=== PATIENT | female | born 1970 | race Caucasian/White ===

== ENCOUNTER 2016-12-12 20:25 | Emergency (ER) | payer OTHER ==
[~2016-12-12] VITALS: Ht 167.6 cm; Wt 136.0 kg
[2016-12-12 20:27] VITALS: TEMP 36.9; Ht 167.6 cm; Wt 136.0 kg
[2016-12-12] MEDS ORDERED: SODIUM CHLORIDE 0.9% 1000ML 1,000 ML IV STA (20:38)
[2016-12-12] MEDS ORDERED: FENTANYL CITRATE INJ 50 MCG/1 ML 2 ML VIAL IV STA (20:38)
--- NOTE | 2016-12-12 20:46 | EMERGENCY ROOM VISIT NOTE ---
History Report prepared by Sami: Jami Almodovar Under the Supervision of: Dr. Nithin Gomez M.D. First contact with patient: 20:31 Chief Complaint: ABDOMINAL PAIN Stated Complaint: LLQ ABD PAIN History of Present Illness The patient is a 46 year old female who presents to the Emergency Room with complaints of constant left lower quadrant abdominal pain that started 2 days ago. She rates her discomfort as a 3/10. She was recently placed on Meloxicam for chronic low back pain and states she has not taken any medication for her abdominal pain yet due to not wanting any interactions with the Meloxicam. She denies any recent hematuria or history of kidney stones. She admits she has been constipated for the past several days. She has been nauseous but has not vomited. She denies any melena or hematochezia. The patient reports she came back from the [facility] today and was going to go to an urgent care center, but they were closed due to the holiday, so she came to the ED. She denies any history of ovarian cysts. She gets her menstrual period every 3 months and her last cycle was in October 2016. She still has both her gallbladder and appendix. Source of History: patient Onset: 2 days PUBLICIST Position: abdomen (LLQ) Symptom Intensity: 3/10 Timing: constant Associated Symptoms: + nausea, No vomiting, No melena, No hematochezia, No urinary symptoms Review of Systems See HPI for pertinent positives and negatives. A total of ten systems were reviewed and were otherwise negative. Past Medical & Surgical Medical Problems: (1) Asthma (2) Low back pain Surgical Problems: (1) History of delivery Social History Smoking Status: Never Smoker Alcohol Use: occasionally Drug Use: none Marital Status: Housing Status: lives with family Occupation Status: employed Current/Historical Medications Scheduled Control Pills ( Control Pills), 1 TAB PO DAILY Ciprofloxacin (Ciprofloxacin HCl), 1 TAB PO BID Fluticasone Propionate (Flovent Hfa), 2 PUFFS INH BID Meloxicam (Mobic), 15 MG PO DAILY Metronidazole (Flagyl), 500 MG PO QID Scheduled PRN Albuterol Hfa (Ventolin Hfa), 2 PUFFS INH Q4H PRN for Wheezing Alprazolam (Xanax), 0.25 MG PO BID PRN for Anxiety Allergies Coded Allergies: No Known Allergies (Unverified , 12/12/16) Physical Exam Vital Signs Date Time Temp Pulse Resp B/P (MAP) Pulse Ox O2 Delivery O2 Flow Rate FiO2 12/13/16 01:15 93 18 118/72 96 12/13/16 00:45 93 18 118/72 96 Room Air 12/12/16 22:27 99 18 136/93 98 Room Air 12/12/16 20:27 36.9 112 20 146/87 96 Room Air Physical Exam GENERAL: Awake, alert, well-appearing, in no distress HENT: Normocephalic, atraumatic. Oropharynx unremarkable. Dry mucous membranes. EYES: Normal conjunctiva. Sclera non-icteric. NECK: Supple. No nuchal rigidity. FROM. No JVD. RESPIRATORY: Clear to auscultation. CARDIAC: Regular rate, normal rhythm. Extremities warm and well perfused. Pulses equal. ABDOMEN: Obese, soft, non-distended. LLQ tenderness to palpation. No peritoneal signs. No rebound or guarding. No masses. RECTAL: Deferred. MUSCULOSKELETAL: Chest examination reveals no tenderness. The back is symmetrical on inspection without obvious abnormality. There is no CVA tenderness to palpation. No joint edema. LOWER EXTREMITIES: Calves are equal size bilaterally and non-tender. No edema. No discoloration. NEURO: Normal sensorium. No sensory or motor deficits noted. SKIN: No rash or jaundice noted. Medical Decision & Procedures ER Provider Diagnostic Interpretation: Radiology results as stated below per my review and radiologist interpretation: ABD/PELVIS IV CONTRAST ONLY HISTORY: 46 years-old Female LLQ pain acute left lower quadrant abdominal pain. Initial exam. COMPARISON: None available. TECHNIQUE: Multiple axial CT images of the abdomen and pelvis were obtained following the intravenous administration of 118 mL Optiray 320. A dose lowering technique was used consistent with the principals of ALARA. FINDINGS: The lung bases are generally clear with subsegmental atelectasis or scarring of the inferior segment lingula. No pneumoperitoneum is identified. Inferior cardiac chambers are unremarkable. The liver, spleen, pancreas, gallbladder and adrenal glands are within normal limits. Kidneys, ureters, urinary bladder and uterus are unremarkable. The abdominal aorta is normal in both course and caliber. No bulky retroperitoneal adenopathy. There is a small duodenal diverticulum. No small bowel obstruction. Moderate wall thickening with mesenteric edema surrounds diverticula within the mid descending colon, notably seen on image 281 of the axial series compatible with acute diverticulitis. No associated perforation or abscess identified at this time. Appendix is normal. Soft tissues are unremarkable. Bones are intact. Moderate intervertebral disc space narrowing noted at L5-S1. IMPRESSION: 1. Findings compatible with acute uncomplicated diverticulitis of the descending colon. No pneumoperitoneum or abscess formation. 2. Normal appendix. The above report was generated using voice recognition software. It may contain grammatical, syntax or spelling errors. Electronically signed by: Neil Walden M.D. 12/12/2016 10:44 PM Laboratory Results 12/12/16 20:55 Red Blood Count 4.28, Mean Corpuscular Volume 94.2, Mean Corpuscular Hemoglobin 31.3, Mean Corpuscular Hemoglobin Concent 33.3, Mean Platelet Volume 10.4, Neutrophils (%) (Auto) 65.9, Lymphocytes (%) (Auto) 22.4, Monocytes (%) (Auto) 9.5, Eosinophils (%) (Auto) 1.6, Basophils (%) (Auto) 0.2, Neutrophils # (Auto) 10.06, Lymphocytes # (Auto) 3.43, Monocytes # (Auto) 1.45, Eosinophils # (Auto) 0.25, Basophils # (Auto) 0.03 12/12/16 20:55 Test 12/12/16 20:55 12/12/16 21:04 12/12/16 21:50 White Blood Count 15.28 K/uL (4.8-10.8) Red Blood Count 4.28 M/uL (4.2-5.4) Hemoglobin 13.4 g/dL (12.0-16.0) Hematocrit 40.3 % (37-47) Mean Corpuscular Volume 94.2 fL (80-100) Mean Corpuscular Hemoglobin 31.3 pg (25-34) Mean Corpuscular Hemoglobin Concent 33.3 g/dl (32-36) Platelet Count 226 K/uL (130-400) Mean Platelet Volume 10.4 fL (7.4-10.4) Neutrophils (%) (Auto) 65.9 % Lymphocytes (%) (Auto) 22.4 % Monocytes (%) (Auto) 9.5 % Eosinophils (%) (Auto) 1.6 % Basophils (%) (Auto) 0.2 % Neutrophils # (Auto) 10.06 K/uL (1.4-6.5) Lymphocytes # (Auto) 3.43 K/uL (1.2-3.4) Monocytes # (Auto) 1.45 K/uL (0.11-0.59) Eosinophils # (Auto) 0.25 K/uL (0-0.5) Basophils # (Auto) 0.03 K/uL (0-0.2) RDW Standard Deviation 43.9 fL (36.4-46.3) RDW Coefficient of Variation 12.8 % (11.5-14.5) Immature Granulocyte % (Auto) 0.4 % Immature Granulocyte # (Auto) 0.06 K/uL (0.00-0.02) Anion Gap 6.0 mmol/L (3-11) Est Creatinine Clear Calc Drug Dose 144.1 ml/min Estimated GFR () 121.3 Estimated GFR (Non- 104.6 BUN/Creatinine Ratio 15.4 (10-20) Calcium Level 8.5 mg/dl (8.5-10.1) Total Bilirubin 0.3 mg/dl (0.2-1) Direct Bilirubin < 0.1 mg/dl (0-0.2) Aspartate Amino Transf (AST/SGOT) 15 U/L (15-37) Alanine Aminotransferase (ALT/SGPT) 16 U/L (12-78) Alkaline Phosphatase 48 U/L (45-117) Total Protein 7.3 gm/dl (6.4-8.2) Albumin 3.0 gm/dl (3.4-5.0) Lipase 97 U/L (73-393) Lactic Acid Level 0.8 mmol/L (0.4-2.0) Urine Color YELLOW Urine Appearance CLEAR (CLEAR) Urine pH 6.5 (4.5-7.5) Urine Specific [place] 1.014 (1.000-1.030) Urine Protein NEG (NEG) Urine Glucose (UA) NEG (NEG) Urine Ketones NEG (NEG) Urine Occult Blood TRACE (NEG) Urine Nitrite NEG (NEG) Urine Bilirubin NEG (NEG) Urine Urobilinogen NEG (NEG) Urine Leukocyte Esterase NEG (NEG) Urine WBC (Auto) 1-5 /hpf (0-5) Urine RBC (Auto) 0-4 /hpf (0-4) Urine Hyaline Casts (Auto) 1-5 /lpf (0-5) Urine Epithelial Cells (Auto) >30 /lpf (0-5) Urine Bacteria (Auto) NEG (NEG) Urine Test NEG (NEG) Laboratory results reviewed by me Medications Administered Medications (Trade) Dose Ordered Sig/[place] Route Start Time Stop Time Status Last Admin Dose Admin Sodium Chloride 1,000 ml @ 999 mls/hr Q1H1M STAT IV 12/12/16 20:38 12/12/16 21:38 DC 12/12/16 21:07 999 MLS/HR Fentanyl Citrate (Fentanyl Inj) 50 mcg NOW STAT IV 12/12/16 20:38 12/12/16 20:44 DC 12/12/16 21:07 50 MCG Ciprofloxacin/ Dextrose (Cipro / D5W) 400 mg NOW STAT IV 12/12/16 22:54 12/12/16 22:57 DC 12/12/16 23:13 400 MG Metronidazole (Flagyl / Nss) 500 mg NOW STAT IV 12/12/16 22:54 12/12/16 22:57 DC 12/12/16 23:13 500 MG ED Course 2036: The patient was evaluated in room B10. A complete history and physical exam was performed. 2037: Fentanyl 50 mcg IV, NSS 1000 ml @ 999 mls/hr IV. 2253: Flagyl 500 mg IV, Cipro 400 mg IV. 2304: I reevaluated the patient. She is feeling better and resting comfortably. I discussed her results and discharge instructions and she verbalized complete understanding and agreement. Medical Decision I reviewed the patient's past medical history, medications, and the nursing notes as described above. The differential diagnoses considered include diverticulitis, bowel obstruction , gastroenteritis, ovarian torsion, ectopic , hemorrhagic cyst, renal stone, pyelonephritis and UTI. Patient is a 46-year-old woman who presents to emergency department with the complaint of left lower quadrant abdominal pain for the past couple of days in the setting of chronic constipation per history of present illness. Arrival the patient is mildly uncomfortable but in no acute distress. She is afebrile with stable vital signs. On exam she has moderate tenderness in the left lower quadrant without any peritoneal signs. WBC elevated at 15. CT scan done which shows uncomplicated diverticulitis. Patient was given a dose of IV antibiotics and otherwise will be discharged on PO regimen with plan for PCP follow-up. Findings and plan for follow-up reviewed with patient. Patient agreeable and d/c 'd per discharge instructions. Medication Reconcilliation Current Medication List: was personally reviewed by me Blood Pressure Screening Patient's blood pressure: Normal blood pressure Blood pressure disposition: Did not require urgent referral Impression Primary Impression: Diverticulitis Scribe Attestation The scribe's documentation has been prepared under my direction and personally reviewed by me in its entirety. I confirm that the note above accurately reflects all work, treatment, procedures, and medical decision making performed by me. Departure Information Dispostion Home / Self-Care Prescriptions Metronidazole (Flagyl) 500 Mg Tab 500 MG PO QID for 7 Days, #28 TAB Prov: Nithin Gomez M.D. 12/12/16 Ciprofloxacin (Ciprofloxacin HCl) 750 Mg Tab 1 TAB PO BID for 7 Days, #14 TABS Prov: Nithin Gomez M.D. 12/12/16 Referrals No Doctor, Assigned (PCP) Patient Instructions Diverticulitis Dc, ED Diverticulitis, My [facility] Additional Instructions Please follow up with your primary care physician in the next 1-3 days for re- evaluation. Your CAT scan showed you have diverticulitis. You were given antibiotics. Otherwise, your exam, lab results, and CT scan did not show signs of an emergent condition at this time. Take your antibiotics as prescribed. Make sure to stay hydrated. Return to the emergency department for worsening symptoms as described in the accompanying instructions.
[2016-12-12 21:03] LABS: BASO % 0.2 %; BASO ABS # 0.03 K/uL (0-0.2); COMPLETE YES; EOS % 1.6 %; HEMATOCRIT 40.3 % (37-47); IG% 0.4 %; LYMPH % 22.4 %; LYMPH ABS # 3.43 K/uL (1.2-3.4); MEAN CELL VOLUME 94.2 fL (80-100); MEAN CORPUSCULAR HEMOGLOBIN 31.3 pg (25-34); MEAN CORPUSCULAR HGB CONC 33.3 g/dl (32-36); MEAN PLATELET VOLUME 10.4 fL (7.4-10.4); MONO % 9.5 %; NEUT % 65.9 %; PLATELET COUNT 226 K/uL (130-400); RED BLOOD COUNT 4.28 M/uL (4.2-5.4); WHITE BLOOD COUNT 15.28 K/uL (4.8-10.8)
[2016-12-12] MEDS ORDERED: OPTIRAY 320 IV PRN (21:15)
[2016-12-12 21:23] LABS: ALT/SGPT 16 U/L (12-78); BLOOD UREA NITROGEN 11 mg/dl (7-18); BUN/CREATININE RATIO 15.4 (10-20); CALCIUM 8.5 mg/dl (8.5-10.1); CARBON DIOXIDE 22 mmol/L (21-32); CHLORIDE 109 mmol/L (98-107); GLUCOSE 94 mg/dl (70-99); POTASSIUM 4.2 mmol/L (3.5-5.1); SODIUM 137 mmol/L (136-145)
[2016-12-12 21:26] LABS: ALKALINE PHOSPHATASE 48 U/L (45-117); AST/SGOT 15 U/L (15-37)
[2016-12-12] MEDS ORDERED: FLVHFA110 INH (21:29)
[2016-12-12] MEDS ORDERED: ALPR0.25 PO (21:29)
[2016-12-12] MEDS ORDERED: BCPILLS PO (21:29)
[2016-12-12] MEDS ORDERED: MELO15TA4 PO (21:29)
[2016-12-12] MEDS ORDERED: VNTHFA/IN INH (21:29)
[2016-12-12 22:04] LABS: URINE APPEARANCE CLEAR (CLEAR); URINE BILIRUBIN NEG (NEG); URINE COLOR YELLOW; URINE EPITHELIAL CELL AUTO >30 /lpf (0-5); URINE NITRITE NEG (NEG); URINE PH 6.5 (4.5-7.5); URINE SPECIFIC GRAVITY 1.014 (1.000-1.030); UROBILINOGEN NEG (NEG); ZZUR CULT IF INDIC CLEAN CATCH NO
[2016-12-12 22:05] LABS: MANUAL MICROSCOPIC REQUIRED? NO; REVIEW REQ? NO
--- NOTE | 2016-12-12 22:45 | DIAGNOSTIC IMAGING REPORT ---
ABD/PELVIS IV CONTRAST ONLY HISTORY: 46 years-old Female LLQ pain acute left lower quadrant abdominal pain. Initial exam. COMPARISON: None available. TECHNIQUE: Multiple axial CT images of the abdomen and pelvis were obtained following the intravenous administration of 118 mL Optiray 320. A dose lowering technique was used consistent with the principals of CHAO. FINDINGS: The lung bases are generally clear with subsegmental atelectasis or scarring of the inferior segment lingula. No pneumoperitoneum is identified. Inferior cardiac chambers are unremarkable. The liver, spleen, pancreas, gallbladder and adrenal glands are within normal limits. Kidneys, ureters, urinary bladder and uterus are unremarkable. The abdominal aorta is normal in both course and caliber. No bulky retroperitoneal adenopathy. There is a small duodenal diverticulum. No small bowel obstruction. Moderate wall thickening with mesenteric edema surrounds diverticula within the mid descending colon, notably seen on image 281 of the axial series compatible with acute diverticulitis. No associated perforation or abscess identified at this time. Appendix is normal. Soft tissues are unremarkable. Bones are intact. Moderate intervertebral disc space narrowing noted at L5-S1. IMPRESSION: 1. Findings compatible with acute uncomplicated diverticulitis of the descending colon. No pneumoperitoneum or abscess formation. 2. Normal appendix. The above report was generated using voice recognition software. It may contain grammatical, syntax or spelling errors. Electronically signed by: Neil Walden M.D. 12/12/2016 10:44 PM Dictated Date/Time: 12/12/2016 10:39 PM
[2016-12-12] MEDS ORDERED: CIPROFLOXACIN 400MG / 200ML D5W IV STA (22:54)
[2016-12-12] MEDS ORDERED: METRONIDAZOLE 500MG / 100ML NSS IV STA (22:54)
[2016-12-12] MEDS ORDERED: ALBUT/IPRATROP 3MG/0.5MG NEB 3 ML VIAL INH STA (23:05)
[2016-12-12] MEDS ORDERED: CPR750 PO (23:22)
[2016-12-12] MEDS ORDERED: METR-163 PO (23:22)
[2016-12-13 01:15] VITALS: BP 118/72; PULSE 93; O2SAT 96
== END 2016-12-13 01:15 | disposition home or self-care (01) ==
LOC: C.EDB 20:27
DX: K57.92 Diverticulitis of intestine, part unspecified, without perforation or abscess without bleeding (principal); G89.29 Other chronic pain; M54.5 Low back pain; J45.909 Unspecified asthma, uncomplicated; Z79.899 Other long term (current) drug therapy

== ENCOUNTER 2022-04-12 11:12 | Inpatient (IN) ==
[2022-04-12] MEDS ORDERED: STAT IV Infusion **Titration per Protocol STA (11:34)
[2022-04-12] MEDS ORDERED: dilTIAZem HCl 5 MG/ML 5 ML VIAL IV STA (11:34)
--- NOTE | 2022-04-12 11:43 | Emergency Department Note ---
Impression & Plan New onset atrial fibrillation, Leukocytosis ED Provider Note NAME: KIRA CARMICHAEL AGE: 51 SEX: F : 1970 ARRIVES VIA: Walk-In INFORMANT: Patient ED PROVIDER(S): Roc Navarro DO CHIEF COMPLAINT: chest pain HPI: Patient is a 51-year-old female with a past medical history of asthma who presents to the ER for upper respiratory symptoms that started last Monday with cough, congestion, and runny nose. Patient started steroids this past Monday. Over the past 24 hours she has been feeling her heart race. She gets sweaty when this occurs. Denies any headache or change in vision. No belly pain, nausea, vomiting, or diarrhea. No dysuria, urgency, or frequency. No other exacerbating or remitting factors. No history of A. fib. PAST MEDICAL HISTORY:See Below PAST SURGICAL HISTORY:See Below FAMILY HISTORY:See Below SOCIAL HISTORY:See Below HOME MEDICATIONS:See Below ALLERGIES:See Below VITALS:See Below PHYSICAL EXAMINATION: GENERAL: Sitting up in bed, alert, well appearing, well nourished, no distress, non-toxic EYE EXAM: normal conjunctiva. OROPHARYNX: no exudate, no erythema, lips, buccal mucosa, and tongue normal and mucous membranes are moist NECK: supple, no nuchal rigidity, no adenopathy, non-tender LUNGS: Clear to auscultation. Normal chest wall mechanics HEART: Tachycardic and irregular regular, S1 normal and S2 normal ABDOMEN: abdomen soft, non-tender, normo-active bowel sounds, no masses, no rebound or guarding. UPPER EXTREMITIES: upper extremities are grossly normal. LOWER EXTREMITIES: No pitting edema. NEURO EXAM: Normal sensorium, cranial nerves II-XII grossly intact, normal speech, no gross weakness of arms, no gross weakness of legs. Triage Nursing notes reviewed. Limited review of prior medical records performed Vital Signs: reviewed and remarkable for htn and tachy Differential diagnosis: Cardiac ischemia, aortic dissection, pulmonary embolism, pneumothorax, pneumonia, pericarditis, myocarditis, esophageal rupture, GERD, cholecystitis, pancreatitis, musculoskeletal, as well as other pathologies. ER treatment provided: See below MEDICAL DECISION MAKING: Patient is a 51-year-old female who presents the ER for feeling her heart race. IV was established blood work is obtained. Labs show leukocytosis of 13,000. No significant anemia. BMP without metabolic acidosis. There is no hyperkalemia. There is no significant electrolyte abnormality to cause this. LFTs show no transaminitis. Troponin was negative and not consistent with ACS. Lipase was normal. COVID was negative. Chest x-ray per my read shows no focal infiltrate. EKG per my read was consistent with A. fib with RVR. She was given Cardizem bolus and placed on Cardizem drip. She is updated bedside. Discussed with the hospitalist admitted for further work-up of her A. fib RVR. I did discuss with both our care managers in regards to placement as well as Zina. from [facility] hospitalist service for admission for the A. fib with RVR. After review of the above data I feel that this patient is to be managed as an inpatient as described above. Consultation(s): Discussed with patient hospital service in regards to admission for A. fib RVR while on Cardizem drip Discussed with not any care managers in regards to placement and admission ER treatment provided: See below Diagnostics interpreted by me: -ECG: A. fib RVR rate of 173 Normal axis No PVCs QTC 447 -Cardiac Monitoring: An order was placed for continuous cardiac monitoring. The monitor shows a rate of 142 with AFIB RVR rhythm. -Laboratory studies:As stated above and show below. -Imaging studies: Portable AP upright 1 view of the chest shows no focal infiltrate per my read Procedures:none Critical Care: I have personally spent 32 minutes of critical care time in the direct management of this patient. This includes bedside care, interpretation of diagnostic studies, and testing, discussion with consultants, patient, and family members, and other required patient management activities. This 32 minutes is in excess of all separately billable procedures. Past Med/Surg History Medical History Asthma Hypertension Intestinal postoperative nonabsorption Lumbar degenerative disc disease Migraine Panic disorder Surgical History Delivery by section H/O gastric bypass Family History Other Heart disease Social History Smoking Status: Never smoker Hx Alcohol Use: No Feels Safe at Home: Yes Allergies Allergies Allergy/AdvReac Type Severity Reaction Status Date / Time No Known Allergies Allergy Unverified 04/12/22 12:02 Home Meds Home Medications Medication Instructions Recorded Confirmed acetaminophen 500 mg tablet 500 mg PO Q6H PRN pain,severe 04/12/22 04/12/22 albuterol sulfate 2.5 mg/3 mL 2.5 mg continuous nebulization Q4 04/12/22 04/12/22 (0.083 %) solution for nebulization PRN Wheezing albuterol sulfate 90 mcg/actuation 2 puff inhalation Q4 PRN Wheezing 04/12/22 04/12/22 aerosol inhaler alprazolam 0.25 mg tablet 0.25 mg PO BID PRN Anxiety 04/12/22 04/12/22 buspirone 10 mg tablet 10 mg PO BID 04/12/22 04/12/22 calcium citrate 200 mg (950 mg) 200 mg PO BID 04/12/22 04/12/22 tablet cetirizine 10 mg tablet (Zyrtec) 10 mg PO DAILY 04/12/22 04/12/22 cyanocobalamin (vitamin B-12) 1,000 mcg IM .EVERY 3 MONTHS 04/12/22 04/12/22 1,000 mcg/mL injection solution fluticasone propionate 50 2 spray intranasal DAILY 04/12/22 04/12/22 mcg/actuation nasal spray,suspension hydrochlorothiazide 25 mg tablet 25 mg PO QAM 04/12/22 04/12/22 losartan 100 mg tablet 100 mg PO QAM 04/12/22 04/12/22 pediatric multivitamin no.76 1 tab PO DAILY 04/12/22 04/12/22 (Flintstones Complete chewable tablet) prednisone 20 mg tablet 20 mg PO UD 04/12/22 04/12/22 Results & Data (ED) Vital Signs Vital Signs - 24 hr 04/12/22 11:18 04/12/22 11:30 04/12/22 11:30 Temperature 36.4 C L Temperature Source Temporal Artery Scan Pulse Rate 146 H Pulse Rate [Right Finger] 176 H Pulse Rhythm Regular Pulse Rhythm [Right Finger] Irregular Pulse Strength Normal Pulse Strength [Right Finger] Normal Respiratory Rate 18 18 Respiratory Effort / Characteristics Non-Labored Non-Labored Respiratory Depth Normal Normal Respiratory Pattern Regular Regular Blood Pressure 156/102 H Blood Pressure [Right Arm] 164/103 H Blood Pressure Mean 120 Blood Pressure Mean [Right Arm] 123 Blood Pressure Position Sitting Blood Pressure Position [Right Arm] Sitting Pulse Oximetry 100 98 Oxygen Delivery Method Room Air Room Air Room Air Sepsis Recent Fever Within 48 Hours No Sepsis New/Unexplained Change in Mental Status No Sepsis Action Taken by Nursing No Action Required 04/12/22 11:30 04/12/22 13:24 Temperature Temperature Source Pulse Rate Pulse Rate [Right Finger] 164 H Pulse Rhythm Pulse Rhythm [Right Finger] Pulse Strength Pulse Strength [Right Finger] Respiratory Rate 18 Respiratory Effort / Characteristics Respiratory Depth Normal Respiratory Pattern Blood Pressure Blood Pressure [Right Arm] 163/103 H Blood Pressure Mean Blood Pressure Mean [Right Arm] 123 Blood Pressure Position Blood Pressure Position [Right Arm] Pulse Oximetry 98 Oxygen Delivery Method Room Air Sepsis Recent Fever Within 48 Hours Sepsis New/Unexplained Change in Mental Status Sepsis Action Taken by Nursing Laboratory Data 04/12/22 11:40 04/12/22 11:40 Lab Results 04/12/22 04/12/22 04/12/22 Range/Units 11:40 11:40 12:44 WBC 13.24 H (4.8-10.8) K/ul RBC 4.78 (3.93-5.22) M/uL Hgb 15.5 (12.0-16.0) g/dl Hct 46.1 H (34.1-44.9) % MCV 96.4 (80.0-100.0) fL MCH 32.4 (25.0-34.0) pg MCHC 33.6 (32.0-36.0) g/dL RDW Std Deviation 48.0 H (36.4-46.3) fL RDW Coeff of Geoff 13.4 (11.5-14.5) % Plt Count 245 (130-400) K/uL MPV 9.6 (9.4-12.3) fL Immature Gran % (Auto) 0.8 % Neut % (Auto) 71.3 % Lymph % (Auto) 21.1 % [place] % (Auto) 6.6 % Eos % (Auto) 0.0 % Baso % (Auto) 0.2 % Neut # (Auto) 9.43 H (1.4-6.5) K/uL Lymph # (Auto) 2.80 (1.2-3.4) K/uL [place] # (Auto) 0.87 H (0.24-0.82) K/uL Eos # (Auto) 0.00 (0-0.50) K/uL Baso # (Auto) 0.03 (0-0.2) K/uL Immature Gran # (Auto) 0.11 H (0.00-0.02) K/uL Sodium 140 (136-145) mmol/L Potassium 3.8 (3.5-5.1) mmol/L Chloride 102 (98-107) mmol/L Carbon Dioxide 29 (21-32) mmol/L Anion Gap 9 (3-11) BUN 17 (6-23) mg/dl Creatinine 1.00 (0.6-1.2) mg/dl Est Cr Clr Drug Dosing 83.3 ml/min Est GFR ( Amer) 76.1 ml/min Est GFR (Non-Af Amer) 65.6 ml/min BUN/Creatinine Ratio 17.0 (10-20) Glucose 117 H (70-99(Fasting)) mg/dl Calcium 8.8 (8.5-10.1) mg/dl Total Bilirubin 0.4 (0.2-1.0) mg/dl AST 53 H (13-39) U/L ALT 50 (7-52) U/L Alkaline Phosphatase 73 (34-104) U/L Troponin I High Sens 10.8 (0-14) pg/ml Total Protein 7.3 (6.0-8.3) gm/dl Albumin 3.7 (3.4-5.0) gm/dl Globulin 3.6 (2.5-4.0) gm/dl Albumin/Globulin Ratio 1.0 (0.9-2) Lipase 39 (11-82) U/L SARS-CoV-2, RNA, NAAT NEGATIVE (NEGATIVE) Administered Medications Diltiazem HCl 125 mg/ Dextrose 125 mls @ 5 mls/hr IV .Q24H [facility]; Protocol Stop: 05/12/22 11:44 Last Titration: 04/12/22 13:27 Dose: 10 mg/hr, 10 mls/hr Documented By: MT Co-signed By: MADI Admin: 04/12/22 12:13 Dose: 5 mg/hr, 5 mls/hr Documented By: AP Co-signed By: RADHA Discontinued Medications Diltiazem HCl (Diltiazem Hcl 5 Mg/Ml 5 Ml Vial) 15 mg IV NOW STA Stop: 04/12/22 11:35 Last Admin: 04/12/22 11:54 Dose: 15 mg Documented By: VICKY Co-signed By: MADI Imaging Data Radiologist's Impression: Chest X-Ray 04/12/22 11:22 XR chest 1V portable CLINICAL HISTORY: Chest pain, nonspecific TECHNIQUE: Single frontal radiograph of the chest was obtained. Comparison: Comparison is made to CT abdomen pelvis 12/12/2016 FINDINGS: Exam is limited by underpenetration. The cardiomediastinal silhouette is normal. The lungs are clear. No evidence of pleural effusion or pneumothorax. IMPRESSION: No acute chest disease. ACT 112: Negative or not required by law. Electronically signed by: Oswaldo Tavera M.D. 04/12/2022 11:39 AM Discharge Plan Visit Data Chief Complaint: Arrhythmia/Palpitations Stated Complaint: PALPITATIONS, ASTHMA, SWEATS ED Provider: Roc Navarro Discharge Problem: New onset atrial fibrillation, Leukocytosis Forms Stand Alone Forms: My [facility] Prescriptions Prescriptions: No Action cyanocobalamin (vitamin B-12) 1,000 mcg/mL solution 1,000 mcg IM .EVERY 3 MONTHS losartan 100 mg tablet 100 mg PO QAM fluticasone propionate 50 mcg/actuation spray,suspension 2 spray INTRANASAL DAILY albuterol sulfate 2.5 mg /3 mL (0.083 %) solution for nebulization 2.5 mg continuous nebulization Q4 PRN (Reason: Wheezing) alprazolam 0.25 mg tablet 0.25 mg PO BID PRN (Reason: Anxiety) hydrochlorothiazide 25 mg tablet 25 mg PO QAM albuterol sulfate 90 mcg/actuation HFA aerosol inhaler 2 puff INHALATION Q4 PRN (Reason: Wheezing) prednisone 20 mg tablet 20 mg PO UD Rx Instructions: start 04/06/22 take 1 tablet 3 times a day for 3 days,then 1 tablet 2 times a day for 3 days,then 1 tablet daily for 3 days cetirizine [Zyrtec] 10 mg Tablet 10 mg PO DAILY calcium citrate 200 mg (950 mg) Tablet 200 mg PO BID Flintstones Complete Tablet,Chewable 1 tab PO DAILY acetaminophen 500 mg Tablet 500 mg PO Q6H PRN (Reason: pain,severe) buspirone 10 mg tablet 10 mg PO BID Referrals Referrals: PCP,NO [Physician] -
[2022-04-12 11:57] LABS: Basophils # (auto) 0.03 K/uL (0-0.2); Basophils % (auto) 0.2 %; Hematocrit (blood only) 46.1 % (34.1-44.9); Hemoglobin 15.5 g/dl (12.0-16.0); Immature Granulocytes # (auto) 0.11 K/uL (0.00-0.02); Immature Granulocytes % (auto) 0.8 %; Lymphocytes % (auto) 21.1 %; Mean Corpuscular Hemoglobin 32.4 pg (25.0-34.0); Mean Corpuscular Hgb Conc 33.6 g/dL (32.0-36.0); Mean Corpuscular Volume 96.4 fL (80.0-100.0); Mean Platelet Volume 9.6 fL (9.4-12.3); Monocytes # (auto) 0.87 K/uL (0.24-0.82); Monocytes % (auto) 6.6 %; Neutrophils # (auto) 9.43 K/uL (1.4-6.5); Neutrophils % (auto) 71.3 %; Platelet Count 245 K/uL (130-400); RDW Coefficient of Variation 13.4 % (11.5-14.5); Red Blood Count 4.78 M/uL (3.93-5.22); White Blood Count 13.24 K/ul (4.8-10.8)
[2022-04-12] MEDS: dilTIAZem HCL 125 MG in DEXTROSE 5% 100 ML IV SCH ×2 (12:13→21:22)
[2022-04-12 12:23] LABS: Troponin I High Sensitivity 10.8 pg/ml (0-14)
--- NOTE | 2022-04-12 12:31 | History & Physical Report ---
Date of Service April 12, 2022 Assessment & Plan (1) New onset atrial fibrillation: (2) Asthma: (3) Hypertension: (4) Lumbar degenerative disc disease: (5) Panic disorder: (6) History of gastric bypass: Plan: This is a 51-year-old female with PMH of asthma, recent URI, history of gastric bypass, lumbar disc disease, anxiety and other medical problems listed below who presents with chest pain and heart fluttering over the past 24 hours and was found to have new onset atrial fibrillation with RVR. New onset atrial fibrillation with RVR New onset Afib with palpitations and chest tightness starting last evening at 5pm in setting of steroids, asthma exacerbation Given bolus of diltiazem and started on drip. Uptitrated when in the room earlier to 10. Continue IV diltiazem drip Started on IV heparin- appreciate cardiology input on ongoing anticoagulation and rate control [id number] score of 2 TSH and Mag pending 2D echo ordered, routine cardiology consult Asthma Recent exacerbation 2/2 UTI. Covid screen negative Has 2 days left of prednisone taper but clinically improved and lungs clear so will discontinue at this time Continue albuterol as needed Anxiety Xanax PRN; uses sparingly H/o gastric bypass surgery Continue multivitamin, IM Vit B12 Q3M as outpatient HTN Continue hctz, losartan Reviewed outpatient data, med rec, interpreted lab studies, ECG and imaging studies and discussed with family at bedside. DVT Ppx: IV heparin Code status: FULL PCP: Sonia Dispo: Admitted to PCU Patient seen in collaboration with Dr. Banerjee. Please see addendum. History of Present Illness Chief Complaint: Palpitations Primary Care Provider: Konstantin Scott MD This is a 51-year-old female with PMH of asthma, recent URI, history of gastric bypass, lumbar disc disease, anxiety and other medical problems listed below who presents with chest pain and heart fluttering over the past 24 hours. Developed upper respiratory symptoms approximately 1 week ago with congestion, cough and runny nose and was started on steroids 4 days ago. Endorses lightheadedness, difficulty catching her breath and chest discomfort. Feels sweaty with palpitations. Tried taking a Xanax last night and this morning but symptoms persisted and was instructed to come to ED for further evaluation. Patient still with elevated heart rate in 140s despite being started on diltiazem drip. Denies any history of atrial fibrillation. Brother had an unknown congenital cardiac issue that resulted in at 29. Viral symptoms have improved and she is taking her inhalers. No fever, chills, dizziness, nausea, vomiting, abdominal pain, dysuria, diarrhea or constipation. Allergies Allergy/AdvReac Type Severity Reaction Status Date / Time No Known Allergies Allergy Unverified 04/12/22 12:02 Home Medications Medication Instructions Recorded Confirmed Type acetaminophen 500 mg tablet 500 mg PO Q6H PRN pain,severe 04/12/22 04/12/22 History albuterol sulfate 2.5 mg/3 mL 2.5 mg continuous nebulization Q4 04/12/22 04/12/22 History (0.083 %) solution for nebulization PRN Wheezing albuterol sulfate 90 mcg/actuation 2 puff inhalation Q4 PRN Wheezing 04/12/22 04/12/22 History aerosol inhaler alprazolam 0.25 mg tablet 0.25 mg PO BID PRN Anxiety 04/12/22 04/12/22 History calcium citrate 200 mg (950 mg) 200 mg PO BID 04/12/22 04/12/22 History tablet cetirizine 10 mg tablet (Zyrtec) 10 mg PO DAILY 04/12/22 04/12/22 History cyanocobalamin (vitamin B-12) 1,000 mcg IM .EVERY 3 MONTHS 04/12/22 04/12/22 History 1,000 mcg/mL injection solution fluticasone propionate 50 2 spray intranasal DAILY 04/12/22 04/12/22 History mcg/actuation nasal spray,suspension hydrochlorothiazide 25 mg tablet 25 mg PO QAM 04/12/22 04/12/22 History losartan 100 mg tablet 100 mg PO QAM 04/12/22 04/12/22 History pediatric multivitamin no.76 1 tab PO DAILY 04/12/22 04/12/22 History (Flintstones Complete chewable tablet) prednisone 20 mg tablet 20 mg PO UD 04/12/22 04/12/22 History Past Med/Surg History Medical History Asthma Hypertension Intestinal postoperative nonabsorption Lumbar degenerative disc disease Migraine Panic disorder Surgical History Delivery by section H/O gastric bypass Family History Other Heart disease Social History Smoking Status: Never smoker Hx Alcohol Use: No Feels Safe at Home: Yes Review of Systems Review of Systems: At least ten systems reviewed and negative except as noted in the HPI. Physical Exam Physical Exam: Please see Dr. Banerjee's addendum for physical exam. Results & Data Results & Data ([facility]) Vital Signs (Past 12 Hours) Vital Signs Temp Pulse Resp BP Pulse Ox O2 Del Method 04/12/22 11:18 36.4 C L 146 H 18 156/102 H 100 Room Air Laboratory Results Short CBC 04/12/22 Range/Units 11:40 WBC 13.24 H (4.8-10.8) K/ul Hgb 15.5 (12.0-16.0) g/dl Hct 46.1 H (34.1-44.9) % Plt Count 245 (130-400) K/uL BMP 04/12/22 11:40 Sodium 140 Potassium 3.8 Chloride 102 Carbon Dioxide 29 BUN 17 Creatinine 1.00 Glucose 117 H Calcium 8.8 Liver Function 04/12/22 Range/Units 11:40 Total Bilirubin 0.4 (0.2-1.0) mg/dl AST 53 H (13-39) U/L ALT 50 (7-52) U/L Alkaline Phosphatase 73 (34-104) U/L Albumin 3.7 (3.4-5.0) gm/dl Diagnostic Findings Chest X-Ray 04/12/22 11:22 XR chest 1V portable CLINICAL HISTORY: Chest pain, nonspecific TECHNIQUE: Single frontal radiograph of the chest was obtained. Comparison: Comparison is made to CT abdomen pelvis 12/12/2016 FINDINGS: Exam is limited by underpenetration. The cardiomediastinal silhouette is normal. The lungs are clear. No evidence of pleural effusion or pneumothorax. IMPRESSION: No acute chest disease. ACT 112: Negative or not required by law. Electronically signed by: Oswaldo Tavera M.D. 04/12/2022 11:39 AM ECG Additional Comments: EKG reviewed, showing atrial fibrillation with RVR at 173 bpm. Supervising Physician Co-Signing Physician Notes Pt is a 51 y/o F with hx of Gastric bypass, Asthma, DDD, Migraine, Anxiety, varicose veins s/p ablation admitted for new onset Afib. PE: NAD, well developed Lungs: CTA, no wheezing or crackles Cardiac: In afib Abd: ND, NT, soft MSK: b/l trace LE pitting edema Psych: AAOx3, normal affect A/P: New onset Afib: -pt is still in RVR --- will increase the Dilt drip dose -trend trop -will start pt on heparin drip -obtain Echo and cardiology consult -admit to PCU tele -will hold albuterol (lungs CTA) HTN: -for now will continue both HCTZ and Losartan --- will decide the change in dose after potential addition of rate control medication Other chronic conditions: plan as above Agree with A/P by Richelle Alfredo PA-C
[2022-04-12 12:34] LABS: Albumin Level 3.7 gm/dl (3.4-5.0); Bilirubin,Total 0.4 mg/dl (0.2-1.0); Calcium 8.8 mg/dl (8.5-10.1); Creatinine Clr Calc Pharmacy 83.3 ml/min; Est GFR (African American) 76.1 ml/min; Est GFR (Non-African American) 65.6 ml/min; Globulin 3.6 gm/dl (2.5-4.0); Potassium 3.8 mmol/L (3.5-5.1); Total Protein 7.3 gm/dl (6.0-8.3)
--- NOTE | 2022-04-12 13:07 | Electrocardiogram Report ---
Test Reason : Blood Pressure : / mmHG Vent. Rate : 173 BPM Atrial Rate : 153 BPM P-R Int : 000 ms QRS Dur : 070 ms QT Int : 264 ms P-R-T Axes : 000 023 -15 degrees QTc Int : 447 ms Atrial fibrillation with rapid ventricular response Nonspecific ST abnormality Abnormal ECG No previous ECGs available Confirmed by Alverto Mcclendon ([id number]) on 04/12/2022 1:07:05 PM Referred By: REFERRED SELF Confirmed By:Alverto Mcclendon
[2022-04-12] MEDS ORDERED: ALBUTEROL HFA 8 GM INHALER INH PRN (13:40)
[2022-04-12] MEDS ORDERED: ALPRAZolam 0.25 MG TABLET PO PRN (13:40)
[2022-04-12] MEDS ORDERED: Heparin IV Adult Wt-Based Standard *NO* Bolus Protocol IV STA (14:24)
[2022-04-12 15:13] LABS: Partial Thromboplastin Time 26.8 Seconds (21.0-31.0)
[2022-04-12] MEDS: HEPARIN SODIUM/DEXTROSE 25,000 UNITS/500 ML BAG IV SCH (15:31)
[2022-04-12] MEDS ORDERED: ACETAMINOPHEN 325 MG TAB PO PRN (16:11)
[2022-04-12] MEDS ORDERED: ONDANSETRON INJ 2 MG/ML 2 ML VIAL IV PRN (16:11)
[2022-04-12] MEDS ORDERED: POLYETHYLENE (MIRALAX) 17 GM PACK PO PRN (16:11)
[2022-04-12] MEDS ORDERED: FLUARIX QUADRIVALENT 0.5 ML SYR IM ONE (17:40)
[2022-04-12 20:56] LABS: INR 0.9 (0.9-1.1); Partial Thromboplastin Ratio 1.7; Prothrombin Time 10.1 Seconds (9.0-12.0)
[2022-04-12 20:59] LABS: Partial Thromboplastin Time 46.8 Seconds (21.0-31.0)
[2022-04-12] MEDS: CALCIUM CITRATE 950 MG TAB PO SCH (21:22)
[2022-04-12] MEDS: ALBUTEROL 0.083% NEBU SOLN 3 ML VIAL NEB PRN (22:20)
[2022-04-12 23:46] LABS: Partial Thromboplastin Time 54.7 Seconds (21.0-31.0)
[2022-04-13] MEDS: ALBUTEROL 0.083% NEBU SOLN 3 ML VIAL NEB PRN ×3 (04:25→15:46)
[2022-04-13 04:35] LABS: Hematocrit (blood only) 39.6 % (34.1-44.9); Hemoglobin 13.7 g/dl (12.0-16.0); Mean Corpuscular Hemoglobin 32.9 pg (25.0-34.0); Mean Corpuscular Hgb Conc 34.6 g/dL (32.0-36.0); Mean Platelet Volume 9.8 fL (9.4-12.3); Platelet Count 206 K/uL (130-400); RDW Coefficient of Variation 13.4 % (11.5-14.5); RDW Standard Deviation 46.9 fL (36.4-46.3); Red Blood Count 4.17 M/uL (3.93-5.22); White Blood Count 10.57 K/ul (4.8-10.8)
[2022-04-13 05:01] LABS: Partial Thromboplastin Ratio 2.4
[2022-04-13 05:05] LABS: BUN Creatinine Ratio 18.8 (10-20); Calcium 8.2 mg/dl (8.5-10.1); Creatinine Clr Calc Pharmacy 120.7 ml/min; Est GFR (African American) 117.6 ml/min; Est GFR (Non-African American) 101.5 ml/min; Potassium 3.6 mmol/L (3.5-5.1)
[2022-04-13] MEDS: dilTIAZem HCL 125 MG in DEXTROSE 5% 100 ML IV SCH (05:23)
[2022-04-13 05:48] LABS: Partial Thromboplastin Time 66.9 Seconds (21.0-31.0)
--- NOTE | 2022-04-13 08:57 | Cardiology Consultation ---
Date of Consultation April 13, 2022 Assessment & Plan (1) New onset atrial fibrillation: (2) Hypertension: (3) Asthma: (4) History of gastric bypass: Plan Patient is a 51-year-old female with underlying medical issues of hypertension, obesity, asthmatic lung disease with recent possible asthmatic exacerbation treated with oral prednisone. She presents now with worsening symptoms of tachypalpitations and chest pressure beginning at least 48 hours prior to presentation. On arrival patient found to be in atrial fibrillation with rapid response which is slowed with IV diltiazem. Echocardiogram on preliminary reviews reveals hyperdynamic LV function no gross valvular disease Exam is consistent with patient's asthmatic lung disease with wheezy cough Issues addressed as follows 1. Atrial fibrillation with rapid ventricular response: Rhythm being driven by underlying asthmatic lung exacerbation marked hypertension and presentation. Rates have slowed and symptoms have improved but heart rate still elevated. Expect difficult management of elevated heart rates and rhythm. We will begin oral diltiazem at 60 mg every 6 hours and discontinue IV diltiazem drip. Do not expect complete heart rate control Anticoagulation initiated we will continue IV heparin. [id number] 2 score of 2 We will tentatively schedule NISHANT guided synchronized electrical cardioversion in a.m. depending on pulmonary status Supplement potassium 2. Marked hypertension on presentation possibly being driven by acute illness, prednisone and anxiety. We will continue losartan, hydrochlorothiazide as well as addition of diltiazem to her regimen History of Present Illness Reason for Consultation: New onset atrial fibrillation Requesting Physician: Dr Weir Attending Physician: Celestina Weir MD History of Present Illness Patient is a 51-year-old female with ongoing issues include 1. Hypertension 2. Asthmatic lung disease 3. Obesity status post gastric bypass surgery 2017 4. Chronic anxiety with panic disorder 5. Status post bilateral saphenous vein ablation for varicosities 2019 Patient is referred for evaluation of atrial fibrillation with rapid response. She denies prior history of cardiac disease or arrhythmias. Notes no chest pains, tachypalpitations, syncope, near syncope prior to current event Notes symptoms of chest pressure and shortness of breath on 04/06/2022. Treated as an outpatient with oral prednisone due to possible asthma exacerbation 60 mg daily x3 days, increase nebulizer Monday evening patient developed sensation of heart pounding hard which she attributed initially to asthmatic exacerbation and bronchodilators, anxiety Date of admission patient symptoms worsening over 24 hours with associated chest pressure discomfort. Patient presented to the emergency room where she is found to be in atrial fibrillation with rapid response rates greater than 170 bpm Patient's been treated with IV diltiazem with slowing but still tachycardic rates and IV heparin She continues to have bronchitic cough and wheezes but notes no further chest pains. Notes no overt fevers or chills. Blood pressures were significantly elevated on presentation. Patient aware of past significant elevation in blood pressures especially with the use of oral contraceptives. She denies history of rheumatic fever scarlet fever or valvular heart disease. Has a brother who had aortic stenosis as young age No history of TIA or stroke no history of bleeding difficulties. Weight has been stable No distinct sleep disruption Allergies Allergy/AdvReac Type Severity Reaction Status Date / Time No Known Allergies Allergy Unverified 04/12/22 12:02 Home Medications Medication Instructions Recorded Confirmed Type acetaminophen 500 mg tablet 500 mg PO Q6H PRN pain,severe 04/12/22 04/12/22 History albuterol sulfate 2.5 mg/3 mL 2.5 mg continuous nebulization Q4 04/12/22 04/12/22 History (0.083 %) solution for nebulization PRN Wheezing albuterol sulfate 90 mcg/actuation 2 puff inhalation Q4 PRN Wheezing 04/12/22 04/12/22 History aerosol inhaler alprazolam 0.25 mg tablet 0.25 mg PO BID PRN Anxiety 04/12/22 04/12/22 History calcium citrate 200 mg (950 mg) 200 mg PO BID 04/12/22 04/12/22 History tablet cetirizine 10 mg tablet (Zyrtec) 10 mg PO DAILY 04/12/22 04/12/22 History cyanocobalamin (vitamin B-12) 1,000 mcg IM .EVERY 3 MONTHS 04/12/22 04/12/22 History 1,000 mcg/mL injection solution fluticasone propionate 50 2 spray intranasal DAILY 04/12/22 04/12/22 History mcg/actuation nasal spray,suspension hydrochlorothiazide 25 mg tablet 25 mg PO QAM 04/12/22 04/12/22 History losartan 100 mg tablet 100 mg PO QAM 04/12/22 04/12/22 History pediatric multivitamin no.76 1 tab PO DAILY 04/12/22 04/12/22 History (Flintstones Complete chewable tablet) prednisone 20 mg tablet 20 mg PO UD 04/12/22 04/12/22 History Patient History Medical History Asthma Hypertension Intestinal postoperative nonabsorption Lumbar degenerative disc disease Migraine Panic disorder Surgical History Delivery by section H/O gastric bypass Family History Other Heart disease Social History Smoking Status: Never smoker Hx Alcohol Use: Yes Alcohol type: other Hx Substance Use: No Preferred Language: Hebrew Communication Ability: Effective Music Autographer Required: No Beliefs That Will Affect Care: None Current Living Situation: Family Feels Safe at Home: Yes Safety Concerns: Feels Safe At This Time Assistive Devices: Glasses Review of Systems Review of Systems: All systems reviewed & are unremarkable except as noted in HPI & below Physical Exam Constitutional: + obese; no acute distress Eyes: PERRL, conjunctivae normal, anicteric sclerae ENMT: external ear and nose normal, oropharynx normal Neck: trachea midline, no thyromegaly Respiratory: + audible wheezes (Increased with cough) Cardiovascular: Rate/Rhythm: + tachycardic and + irregularly irregular Heart Sounds: normal S1 and normal S2; no gallop and no murmur Palpation: normal PMI Vessels: normal carotid upstroke and radial pulses present; no JVD and no carotid bruit Extremities: no edema Gastrointestinal (Abdomen): normal bowel sounds, soft, nontender, no hepatosplenomegaly Musculoskeletal: no cyanosis or clubbing, extremities motor strength 5/5 Skin: no rashes, warm and dry Neurologic: PERRL, EOMI, accommodation nl, no face palsy, no dysarthria Psychiatric: A+Ox3, euthymic affect Results & Data ([facility]) Vital Signs (Past 12 Hours) Vital Signs Pulse Resp BP Pulse Ox O2 Del Method 04/13/22 08:00 97 H 16 119/87 97 Room Air 04/13/22 04:29 94 H 16 119/74 99 Room Air 04/13/22 01:27 96 H 18 04/13/22 00:09 109 H 15 126/96 97 Room Air 04/12/22 21:00 118 H 20 98 Room Air Laboratory Results Laboratory Results - last 24 hr 04/12/22 04/12/22 04/12/22 11:40 11:40 11:40 WBC 13.24 H RBC 4.78 Hgb 15.5 Hct 46.1 H MCV 96.4 MCH 32.4 MCHC 33.6 RDW Std Deviation 48.0 H RDW Coeff of Geoff 13.4 Plt Count 245 MPV 9.6 Immature Gran % (Auto) 0.8 Neut % (Auto) 71.3 Lymph % (Auto) 21.1 [place] % (Auto) 6.6 Eos % (Auto) 0.0 Baso % (Auto) 0.2 Neut # (Auto) 9.43 H Lymph # (Auto) 2.80 [place] # (Auto) 0.87 H Eos # (Auto) 0.00 Baso # (Auto) 0.03 Immature Gran # (Auto) 0.11 H PT INR APTT 26.8 PTT Ratio 1.0 Sodium 140 Potassium 3.8 Chloride 102 Carbon Dioxide 29 Anion Gap 9 BUN 17 Creatinine 1.00 Est Cr Clr Drug Dosing 83.3 Est GFR ( Amer) 76.1 Est GFR (Non-Af Amer) 65.6 BUN/Creatinine Ratio 17.0 Glucose 117 H Calcium 8.8 Magnesium Total Bilirubin 0.4 AST 53 H ALT 50 Alkaline Phosphatase 73 Troponin I High Sens 10.8 Total Protein 7.3 Albumin 3.7 Globulin 3.6 Albumin/Globulin Ratio 1.0 Lipase 39 TSH SARS-CoV-2, RNA, NAAT 04/12/22 04/12/22 04/12/22 12:44 13:53 14:14 WBC RBC Hgb Hct MCV MCH MCHC RDW Std Deviation RDW Coeff of Geoff Plt Count MPV Immature Gran % (Auto) Neut % (Auto) Lymph % (Auto) [place] % (Auto) Eos % (Auto) Baso % (Auto) Neut # (Auto) Lymph # (Auto) [place] # (Auto) Eos # (Auto) Baso # (Auto) Immature Gran # (Auto) PT INR APTT PTT Ratio Sodium Potassium Chloride Carbon Dioxide Anion Gap BUN Creatinine Est Cr Clr Drug Dosing Est GFR ( Amer) Est GFR (Non-Af Amer) BUN/Creatinine Ratio Glucose Calcium Magnesium 2.2 Total Bilirubin AST ALT Alkaline Phosphatase Troponin I High Sens Total Protein Albumin Globulin Albumin/Globulin Ratio Lipase TSH 3.810 SARS-CoV-2, RNA, NAAT NEGATIVE 04/12/22 04/12/22 04/13/22 19:45 22:29 04:11 WBC 10.57 RBC 4.17 Hgb 13.7 Hct 39.6 MCV 95.0 MCH 32.9 MCHC 34.6 RDW Std Deviation 46.9 H RDW Coeff of Geoff 13.4 Plt Count 206 MPV 9.8 Immature Gran % (Auto) Neut % (Auto) Lymph % (Auto) [place] % (Auto) Eos % (Auto) Baso % (Auto) Neut # (Auto) Lymph # (Auto) [place] # (Auto) Eos # (Auto) Baso # (Auto) Immature Gran # (Auto) PT 10.1 INR 0.9 APTT 46.8 H* 54.7 H* PTT Ratio 1.7 2.0 Sodium Potassium Chloride Carbon Dioxide Anion Gap BUN Creatinine Est Cr Clr Drug Dosing Est GFR ( Amer) Est GFR (Non-Af Amer) BUN/Creatinine Ratio Glucose Calcium Magnesium Total Bilirubin AST ALT Alkaline Phosphatase Troponin I High Sens Total Protein Albumin Globulin Albumin/Globulin Ratio Lipase TSH SARS-CoV-2, RNA, NAAT 04/13/22 04/13/22 04:11 04:11 WBC RBC Hgb Hct MCV MCH MCHC RDW Std Deviation RDW Coeff of Geoff Plt Count MPV Immature Gran % (Auto) Neut % (Auto) Lymph % (Auto) [place] % (Auto) Eos % (Auto) Baso % (Auto) Neut # (Auto) Lymph # (Auto) [place] # (Auto) Eos # (Auto) Baso # (Auto) Immature Gran # (Auto) PT INR APTT 66.9 H* PTT Ratio 2.4 Sodium 139 Potassium 3.6 Chloride 105 Carbon Dioxide 27 Anion Gap 7 BUN 13 Creatinine 0.69 D Est Cr Clr Drug Dosing 120.7 Est GFR ( Amer) 117.6 Est GFR (Non-Af Amer) 101.5 BUN/Creatinine Ratio 18.8 Glucose 96 Calcium 8.2 L Magnesium Total Bilirubin AST ALT Alkaline Phosphatase Troponin I High Sens Total Protein Albumin Globulin Albumin/Globulin Ratio Lipase TSH SARS-CoV-2, RNA, NAAT
[2022-04-13] MEDS: hydroCHLOROthiazide 25 MG TAB PO SCH (09:08)
[2022-04-13] MEDS: FLUTICASONE PROPIONATE NA SPR 16 GM BTL NAE SCH (09:08)
[2022-04-13] MEDS: CALCIUM CITRATE 950 MG TAB PO SCH ×2 (09:09→19:28)
[2022-04-13] MEDS: MULTIVITAMIN CHEWABLE TAB PO SCH (09:09)
[2022-04-13] MEDS: CETIRIZINE HCL 10 MG TABLET PO SCH (09:09)
[2022-04-13] MEDS: LOSARTAN POTASSIUM 50 MG TAB PO SCH (09:09)
[2022-04-13] MEDS ORDERED: POTASSIUM CHLORIDE CRTAB 20 MEQ TABCR PO ONE (10:28)
[2022-04-13 10:52] LABS: Partial Thromboplastin Ratio 1.5; Partial Thromboplastin Time 42.3 Seconds (21.0-31.0)
[2022-04-13] MEDS: HEPARIN SODIUM/DEXTROSE 25,000 UNITS/500 ML BAG IV SCH (11:18)
[2022-04-13] MEDS: dilTIAZem HCl 60 MG TAB PO SCH ×3 (13:19→23:07)
[2022-04-13] MEDS: ALPRAZolam 0.5 MG TABLET PO PRN (15:43)
--- NOTE | 2022-04-13 17:27 | Hospitalist Progress Note ---
Date of Service April 13, 2022 Assessment & Plan (1) New onset atrial fibrillation: (2) Asthma: (3) Hypertension: (4) Lumbar degenerative disc disease: (5) Panic disorder: (6) History of gastric bypass: Plan: Presented on admission with chest pain and heart fluttering was found to have new onset atrial fibrillation with RVR. New onset atrial fibrillation with RVR EKG on admission showed A. fib with RVR Patient was started on IV Cardizem drip on admission Echo showed no wall motion abnormality. Moderate left ventricular hypertrophy. Ejection fraction 60 to 65%. Cardiology on board IV Cardizem discontinued and transition to p.o. Cardizem 60 mg every 6 hr [id number] 2 score of 2 continue IV heparin drip Plan for NISHANT guided synchronized electrical cardioversion in a.m. depending on pulmonary status Will keep potassium above 4 and mag above 2 We will make n.p.o. after midnight Asthma Recent exacerbation 2/2 UTI. Covid screen negative Continue prednisone Continue albuterol as needed Anxiety Xanax PRN; uses sparingly H/o gastric bypass surgery Continue multivitamin, IM Vit B12 Q3M as outpatient HTN BP stable continue hctz, losartan DVT Ppx: IV heparin Code status: FULL PCP: Sonia Reeder Continue monitor closely telemetry Admission and Anticipated Discharge Date Admission Date: April 12, 2022 Subjective Patient was seen and evaluated for follow-up of A. fib with RVR Sitting in bed with no acute distress Patient said she felt a lot better today She said that she is no longer have any chest pain and palpitation Review of Systems Review of Systems: All systems reviewed & are unremarkable except as noted in Subjective Physical Exam Physical Exam: General- No acute distress Head- atraumatic Eyes- PERRL, EOMI, ENT- oropharynx clear Neck- supple, no JVD Lungs- clear to auscultation Heart- irregular rhythm Abdomen- normal bowel sounds, soft, nontender Extremities- no calf tenderness Neuro- alert, oriented x 3; PERRL, EOMI; no facial palsy; no dysarthria Skin- warm & dry Results & Data Results & Data ([facility]) Vital Signs (Past 12 Hours) Vital Signs Temp Pulse Pulse Resp BP BP BP 04/13/22 15:46 99 H 16 04/13/22 15:32 36.7 C 94 H 16 106/74 04/13/22 13:41 36.4 C L 109 H 18 124/84 04/13/22 10:56 112 H 18 105/77 04/13/22 10:00 122 H 15 04/13/22 09:00 98 H 04/13/22 08:30 100 H 04/13/22 08:07 119/82 04/13/22 08:07 90 04/13/22 08:00 96 H 04/13/22 07:30 102 H 16 04/13/22 07:00 96 H 21 04/13/22 06:30 102 H 14 04/13/22 06:00 101 H 15 04/13/22 05:30 109 H 18 04/13/22 08:00 97 H 16 119/87 Pulse Ox O2 Del Method 04/13/22 15:46 96 Room Air 04/13/22 15:32 96 Room Air 04/13/22 13:41 96 Room Air 04/13/22 10:56 98 Room Air 04/13/22 10:00 04/13/22 09:00 04/13/22 08:30 04/13/22 08:07 04/13/22 08:07 04/13/22 08:00 04/13/22 07:30 04/13/22 07:00 04/13/22 06:30 04/13/22 06:00 04/13/22 05:30 04/13/22 08:00 97 Room Air
[2022-04-13 19:30] LABS: Prothrombin Time 10.3 Seconds (9.0-12.0)
[2022-04-14 00:40] LABS: Partial Thromboplastin Ratio 2.1
[2022-04-14 01:45] LABS: Partial Thromboplastin Time 57.7 Seconds (21.0-31.0)
[2022-04-14] MEDS: ALBUTEROL 0.083% NEBU SOLN 3 ML VIAL NEB PRN ×3 (02:14→15:50)
[2022-04-14] MEDS: dilTIAZem HCl 60 MG TAB PO SCH (06:00)
--- NOTE | 2022-04-14 06:42 | Anesthesiology Consultation ---
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 initiated History Surgery Operation Date: 04/14/22 07:15 Proposed Procedures p Cardioversion Rags Laborer w/Anesthesia - Devon Schuler MD Height/Weight Height: 5 ft 6 in Weight: 104.5 kg Allergies Allergy/AdvReac Type Severity Reaction Status Date / Time No Known Allergies Allergy Unverified 04/12/22 12:02 Medications Home Medications Medication Instructions Recorded Confirmed Last Taken acetaminophen 500 mg tablet 500 mg PO Q6H PRN pain,severe 04/12/22 04/12/22 Unknown albuterol sulfate 2.5 mg/3 mL 2.5 mg continuous nebulization Q4 04/12/22 04/12/22 Unknown (0.083 %) solution for nebulization PRN Wheezing albuterol sulfate 90 mcg/actuation 2 puff inhalation Q4 PRN Wheezing 04/12/22 04/12/22 Unknown aerosol inhaler alprazolam 0.25 mg tablet 0.25 mg PO BID PRN Anxiety 04/12/22 04/12/22 Unknown calcium citrate 200 mg (950 mg) 200 mg PO BID 04/12/22 04/12/22 Unknown tablet cetirizine 10 mg tablet (Zyrtec) 10 mg PO DAILY 04/12/22 04/12/22 Unknown cyanocobalamin (vitamin B-12) 1,000 mcg IM .EVERY 3 MONTHS 04/12/22 04/12/22 Unknown 1,000 mcg/mL injection solution fluticasone propionate 50 2 spray intranasal DAILY 04/12/22 04/12/22 Unknown mcg/actuation nasal spray,suspension hydrochlorothiazide 25 mg tablet 25 mg PO QAM 04/12/22 04/12/22 Unknown losartan 100 mg tablet 100 mg PO QAM 04/12/22 04/12/22 Unknown pediatric multivitamin no.76 1 tab PO DAILY 04/12/22 04/12/22 Unknown (Flintstones Complete chewable tablet) prednisone 20 mg tablet 20 mg PO UD 04/12/22 04/12/22 Unknown Active Medications Generic Name Dose Route Start Last Admin Trade Name Freq PRN Reason Stop Dose Admin Albuterol 2.5 mg 04/12/22 13:40 04/14/22 06:14 Albuterol 0.083% Nebu Soln 3 Ml Vial NEB 05/12/22 13:39 2.5 mg Q4R PRN Administration Wheezing Protocol Alprazolam 0.25 mg 04/13/22 11:33 04/13/22 15:43 Alprazolam 0.5 Mg Tablet PO 05/13/22 11:32 0.25 mg BID PRN Administration Anxiety Calcium Citrate 950 mg 04/12/22 21:00 04/13/22 19:28 Calcium Citrate 950 Mg Tab PO 05/12/22 20:59 950 mg BID ADRIAN Administration Cetirizine HCl 10 mg 04/13/22 09:00 04/13/22 09:09 Cetirizine Hcl 10 Mg Tablet PO 05/13/22 08:59 10 mg DAILY ADRIAN Administration Diltiazem HCl 60 mg 04/13/22 12:00 04/14/22 06:00 Diltiazem Hcl 60 Mg Tab PO 05/13/22 11:59 60 mg Q6 ADRIAN Administration Fluticasone Propionate 2 sprays 04/13/22 09:00 04/13/22 09:08 Fluticasone Propionate Na Spr 16 Gm Btl PATRICK 05/13/22 08:59 2 sprays DAILY ADRIAN Administration Hydrochlorothiazide 25 mg 04/13/22 09:00 04/13/22 09:08 Hydrochlorothiazide 25 Mg Tab PO 05/13/22 08:59 25 mg QAM ADRIAN Administration Diltiazem HCl 125 mg/ Dextrose 125 mls @ 15 mls/hr 04/12/22 11:45 04/13/22 13:54 IV 05/12/22 11:44 Infused .[id number] ADRIAN Titration Protocol 15 MG/HR Heparin Sodium/Dextrose 25,000 units in 500 mls @ 26 mls/hr 04/12/22 14:15 04/13/22 11:18 Heparin Sodium/Dextrose IV 05/12/22 14:14 Not Given .[id number] ADRIAN Protocol 1,300 UNITS/HR Losartan Potassium 100 mg 04/13/22 09:00 04/13/22 09:09 Losartan Potassium 50 Mg Tab PO 05/13/22 08:59 100 mg QAM ADRIAN Administration Multivitamins/Folic Acid/Vitamin C 1 tab 04/13/22 09:00 04/13/22 09:09 Multivitamin Chewable Tab PO 05/13/22 08:59 1 tab DAILY ADRIAN Administration Past Medical History Medical History Asthma Hypertension Intestinal postoperative nonabsorption Lumbar degenerative disc disease Migraine Panic disorder Past Family History Family History Other Heart disease Past Surgical History Surgical History Delivery by section H/O gastric bypass Social History Smoking Status: Never smoker Hx Alcohol Use: Yes Alcohol type: other alcohol intake frequency: holidays/special occasions only Hx Substance Use: No Physical Exam Vital Signs Last Vital Signs Temp 97.7 F 04/14/22 03:00 Pulse 97 H 04/14/22 06:14 Resp 20 04/14/22 06:14 BP 110/75 04/14/22 03:00 Pulse Ox 95 04/14/22 06:14 O2 Del Method 04/14/22 06:14 Testing Laboratory Results 04/13/22 04:11 04/13/22 04:11 PT 10.3 Seconds (9.0-12.0) 04/13/22 19:08 INR 1.0 (0.9-1.1) 04/13/22 19:08 APTT 57.7 Seconds (21.0-31.0) H* 04/14/22 00:03 Electrocardiogram Date: 04/14/22 Normal sinus rhythm, rate 97 bpm Normal ECG When compared with ECG of 12-APR-2022 11:30, Sinus rhythm has replaced Atrial fibrillation Vent. rate has decreased BY 76 BPM Chest X-Ray Date: 04/12/22 Findings: + NAD Echocardiogram Date: 04/13/22 EF 60-65% There is moderate concentric LVH No regional wall motion abnormalities noted LA is mildly dilated Mild TR Dopper findings do not suggest pulmonary HTN
[2022-04-14] MEDS: HEPARIN SODIUM/DEXTROSE 25,000 UNITS/500 ML BAG IV SCH (06:55)
[2022-04-14 07:33] LABS: Hematocrit (blood only) 41.7 % (34.1-44.9); Hemoglobin 14.2 g/dl (12.0-16.0); Mean Corpuscular Hemoglobin 32.8 pg (25.0-34.0); Mean Corpuscular Hgb Conc 34.1 g/dL (32.0-36.0); Mean Corpuscular Volume 96.3 fL (80.0-100.0); Mean Platelet Volume 9.8 fL (9.4-12.3); Platelet Count 238 K/uL (130-400); RDW Coefficient of Variation 13.5 % (11.5-14.5); RDW Standard Deviation 48.5 fL (36.4-46.3); Red Blood Count 4.33 M/uL (3.93-5.22); White Blood Count 11.92 K/ul (4.8-10.8)
[2022-04-14 07:59] LABS: BUN Creatinine Ratio 19.5 (10-20); Calcium 8.2 mg/dl (8.5-10.1); Creatinine Clr Calc Pharmacy 94.5 ml/min; Est GFR (Non-African American) 77.7 ml/min; Potassium 3.5 mmol/L (3.5-5.1)
[2022-04-14] MEDS: ALPRAZolam 0.5 MG TABLET PO PRN (08:07)
[2022-04-14] MEDS: CALCIUM CITRATE 950 MG TAB PO SCH (08:09)
[2022-04-14] MEDS: hydroCHLOROthiazide 25 MG TAB PO SCH (08:10)
[2022-04-14] MEDS: CETIRIZINE HCL 10 MG TABLET PO SCH (08:10)
[2022-04-14] MEDS: FLUTICASONE PROPIONATE NA SPR 16 GM BTL NAE SCH (08:11)
[2022-04-14] MEDS: MULTIVITAMIN CHEWABLE TAB PO SCH (08:11)
[2022-04-14] MEDS: LOSARTAN POTASSIUM 50 MG TAB PO SCH (08:12)
[2022-04-14] MEDS ORDERED: APIXABAN 5 MG TABLET PO SCH (09:00)
[2022-04-14] MEDS ORDERED: dilTIAZem HCL 180 MG CAPCR PO SCH (09:00)
--- NOTE | 2022-04-14 09:10 | Cardiology Progress Note ---
Date of Service April 14, 2022 Assessment & Plan (1) New onset atrial fibrillation: (2) Hypertension: (3) Asthma: (4) History of gastric bypass: Plan Patient is a 51-year-old female with underlying medical issues of hypertension, obesity, asthmatic lung disease with recent possible asthmatic exacerbation treated with oral prednisone. She presents now with worsening symptoms of tachypalpitations and chest pressure beginning at least 48 hours prior to presentation. On arrival patient found to be in atrial fibrillation with rapid response which is slowed with IV diltiazem. Echocardiogram on preliminary reviews reveals hyperdynamic LV function no gross valvular disease Exam is consistent with patient's asthmatic lung disease with wheezy cough Issues addressed as follows 1. Atrial fibrillation with rapid ventricular response: Rhythm being driven by underlying asthmatic lung exacerbation marked hypertension and presentation. Rates have slowed and symptoms have improved but heart rate still elevated. Expect difficult management of elevated heart rates and rhythm. We will begin oral diltiazem at 60 mg every 6 hours and discontinue IV diltiazem drip. Do not expect complete heart rate control Anticoagulation initiated we will continue IV heparin. [id number] 2 score of 2 Supplement potassium 2. Marked hypertension on presentation possibly being driven by acute illness, prednisone and anxiety. We will continue losartan, hydrochlorothiazide as well as addition of diltiazem to her regimen 04/14/2021 Patient with spontaneous conversion to sinus rhythm. Rhythm being likely driven by multifactorial issues including pulmonary asthmatic exacerbation, prednisone, hypokalemia We will initiate oral diltiazem extended release with diltiazem CD 180 mg/day. Change IV heparin to Eliquis 5 mg twice per day for 30 days Add daily potassium dose 10 mg p.o. daily Continue to treat underlying pulmonary issues Follow-up cardiology 3 weeks time Admission and Anticipated Discharge Date Admission Date: April 12, 2022 Subjective Patient seen and examined, chart, medications, telemetry reviewed Patient with spontaneous conversion to sinus rhythm last evening approximately 7 PM. Is remained in sinus rhythm overnight Still wheezing and coughing throughout the night. No distinct chest pains or discomfort. No fevers chills No bleeding difficulties on anticoagulation Blood pressure controlled Review of Systems Review of Systems: All systems reviewed & are unremarkable except as noted in Subjective Physical Exam Constitutional: + obese; no acute distress Eyes: PERRL, conjunctivae normal, anicteric sclerae ENMT: external ear and nose normal, oropharynx normal Neck: trachea midline, no thyromegaly Respiratory: + audible wheezes (Few scattered with cough) Cardiovascular: Rate/Rhythm: regular rate and regular rhythm Heart Sounds: normal S1 and normal S2; no gallop and no murmur Palpation: normal PMI Vessels: normal carotid upstroke and radial pulses present; no JVD and no carotid bruit Extremities: no edema Gastrointestinal (Abdomen): normal bowel sounds, soft, nontender, no hepatosplenomegaly Musculoskeletal: no cyanosis or clubbing, extremities motor strength 5/5 Skin: no rashes, warm and dry Neurologic: PERRL, EOMI, accommodation nl, no face palsy, no dysarthria Psychiatric: A+Ox3, euthymic affect Results & Data ([facility]) Vital Signs (Past 12 Hours) Vital Signs Temp Pulse Resp BP Pulse Ox O2 Del Method 04/14/22 07:00 36.6 C 90 18 100/67 94 Room Air 04/14/22 06:14 97 H 20 95 Room Air 04/14/22 03:00 36.5 C 99 H 18 110/75 94 Room Air 04/14/22 02:14 88 18 94 Room Air 04/13/22 23:00 36.8 C 82 17 121/76 92 Room Air Laboratory Results Laboratory Results - last 24 hr 04/13/22 04/13/22 04/14/22 10:06 19:08 00:03 WBC RBC Hgb Hct MCV MCH MCHC RDW Std Deviation RDW Coeff of Geoff Plt Count MPV PT 10.3 INR 1.0 APTT 42.3 H 57.7 H* PTT Ratio 1.5 2.1 Sodium Potassium Chloride Carbon Dioxide Anion Gap BUN Creatinine Est Cr Clr Drug Dosing Est GFR ( Amer) Est GFR (Non-Af Amer) BUN/Creatinine Ratio Glucose Calcium 04/14/22 04/14/22 06:51 06:51 WBC 11.92 H RBC 4.33 Hgb 14.2 Hct 41.7 MCV 96.3 MCH 32.8 MCHC 34.1 RDW Std Deviation 48.5 H RDW Coeff of Geoff 13.5 Plt Count 238 MPV 9.8 PT INR APTT PTT Ratio Sodium 138 Potassium 3.5 Chloride 100 Carbon Dioxide 30 Anion Gap 8 BUN 17 Creatinine 0.87 Est Cr Clr Drug Dosing 94.5 Est GFR ( Amer) 90.0 Est GFR (Non-Af Amer) 77.7 BUN/Creatinine Ratio 19.5 Glucose 111 H Calcium 8.2 L
[2022-04-14] MEDS ORDERED: POTASSIUM CHLORIDE CRTAB 20 MEQ TABCR PO ONE (09:30)
[2022-04-14] MEDS ORDERED: predniSONE 20 MG TAB PO STA (10:25)
[2022-04-14] MEDS ORDERED: guaiFENesin 200 MG TAB PO SCH (10:30)
--- NOTE | 2022-04-14 15:45 | Hospitalist Progress Note ---
Date of Service April 14, 2022 Assessment & Plan (1) New onset atrial fibrillation: (2) Asthma: (3) Hypertension: (4) Lumbar degenerative disc disease: (5) Panic disorder: (6) History of gastric bypass: Plan: Presented on admission with chest pain and heart fluttering was found to have new onset atrial fibrillation with RVR. New onset atrial fibrillation with RVR EKG on admission showed A. fib with RVR Patient was started on IV Cardizem drip on admission Echo showed no wall motion abnormality. Moderate left ventricular hypertrophy. Ejection fraction 60 to 65%. Cardiology on board IV Cardizem discontinued and transition to p.o. Cardizem 60 mg every 6 hr [id number] 2 score of 2 Spontaneous conversion to sinus rhythm last night IV heparin changed to eliquis 5mg BID Will keep potassium above 4 and mag above 2 case discussed with cardiology recommended to continue current treatment on discharge Follow up with cardiology in 3 weeks Asthma Recent exacerbation 2/2 UTI. Covid screen negative Prednisone 40mg x1 given Continue albuterol as needed Anxiety Xanax PRN; uses sparingly H/o gastric bypass surgery Continue multivitamin, IM Vit B12 Q3M as outpatient HTN BP stable continue hctz, losartan DVT Ppx: On Eliquis Code status: FULL PCP: Sonia Disposition Plan to discharge tomorrow Admission and Anticipated Discharge Date Admission Date: April 12, 2022 Subjective Pt was seen and examined for follow up Lying in bed with no acute distress Pt said that her breathing feels worsening today She was converted back to NSR last night She said that she usually gets a course of steroid by her physician then after a day or 2 she gets better She wants to stay for tonight Denies any chest pain, palpitation, dizziness and SOB Review of Systems Review of Systems: All systems reviewed & are unremarkable except as noted in Subjective Physical Exam Physical Exam: General- No acute distress Head- atraumatic Eyes- PERRL, EOMI, ENT- oropharynx clear Neck- supple, no JVD Lungs- No wheezing Heart- regular rhythm Abdomen- normal bowel sounds, soft, nontender Extremities- no calf tenderness Neuro- alert, oriented x 3; PERRL, EOMI; no facial palsy; no dysarthria Skin- warm & dry Results & Data Results & Data ([facility]) Vital Signs (Past 12 Hours) Vital Signs Temp Pulse Pulse Resp BP Pulse Ox O2 Del Method 04/14/22 10:00 117 H 04/14/22 12:17 36.4 C L 104 H 18 122/83 95 Room Air 04/14/22 09:40 Room Air 04/14/22 07:00 36.6 C 90 18 100/67 94 Room Air 04/14/22 06:14 97 H 20 95 Room Air
--- NOTE | 2022-04-14 16:52 | Discharge Summary ---
Date of Service April 14, 2022 Admission HPI Per Admitting Provider This is a 51-year-old female with PMH of asthma, recent URI, history of gastric bypass, lumbar disc disease, anxiety and other medical problems listed below who presents with chest pain and heart fluttering over the past 24 hours. Developed upper respiratory symptoms approximately 1 week ago with congestion, cough and runny nose and was started on steroids 4 days ago. Endorses lightheadedness, difficulty catching her breath and chest discomfort. Feels sweaty with palpitations. Tried taking a Xanax last night and this morning but symptoms persisted and was instructed to come to ED for further evaluation. Patient still with elevated heart rate in 140s despite being started on diltiazem drip. Denies any history of atrial fibrillation. Brother had an unknown congenital cardiac issue that resulted in at 29. Viral symptoms have improved and she is taking her inhalers. No fever, chills, dizziness, nausea, vomiting, abdominal pain, dysuria, diarrhea or constipation. Discharge Exam General- No acute distress Head- atraumatic Eyes- PERRL, EOMI, ENT- oropharynx clear Neck- supple, no JVD Lungs- No wheezing Heart- regular rhythm Abdomen- normal bowel sounds, soft, nontender Extremities- no calf tenderness Neuro- alert, oriented x 3; PERRL, EOMI; no facial palsy; no dysarthria Skin- warm & dry Discharge Data Allergies Allergy/AdvReac Type Severity Reaction Status Date / Time No Known Allergies Allergy Unverified 04/12/22 12:02 Consultations 04/12/22 12:13 ED Decision to Admit Stat 04/12/22 13:42 Consult Cardiology Routine 04/13/22 10:26 Consult Anesthesiology Routine Procedures Performed Operation Date: 04/14/22 07:15 <No data on this case meets the specified criteria> Hospital Course (1) New onset atrial fibrillation: (2) Asthma: (3) Hypertension: (4) Lumbar degenerative disc disease: (5) Panic disorder: (6) History of gastric bypass: Presented on admission with chest pain and heart fluttering was found to have new onset atrial fibrillation with RVR. New onset atrial fibrillation with RVR EKG on admission showed A. fib with RVR Patient was started on IV Cardizem drip on admission Echo showed no wall motion abnormality. Moderate left ventricular hypertrophy. Ejection fraction 60 to 65%. Cardiology on board IV Cardizem discontinued and transition to p.o. Cardizem 60 mg every 6 hr [id number] 2 score of 2 Spontaneous conversion to sinus rhythm last night IV heparin changed to eliquis 5mg BID Will keep potassium above 4 and mag above 2 case discussed with cardiology recommended to continue current treatment on discharge Follow up with cardiology in 3 weeks Asthma Recent exacerbation 2/2 UTI. Covid screen negative Prednisone 40mg x1 given Continue albuterol as needed Anxiety Xanax PRN; uses sparingly H/o gastric bypass surgery Continue multivitamin, IM Vit B12 Q3M as outpatient HTN BP stable continue hctz, losartan DVT Ppx: On Eliquis Code status: FULL PCP: Sonia Disposition Plan to discharge tomorrow Discharge Plan Discharge Items Patient Disposition: Home - Self-Care Reason For Visit: A FIB WITH RVR Discharge Diagnosis: (1) New onset atrial fibrillation: (2) Asthma: (3) Hypertension: (4) Lumbar degenerative disc disease: (5) Panic disorder: (6) History of gastric bypass: Activity: Resume your previous activity Non-emergency contact: Primary Care Provider and Business Risk Consultant Call non-emergency contact if: you have any medication questions and your symptoms worsen Follow-up/Referrals: Konstantin Scott MD [Primary Care Provider] - Diet: Heart Healthy Addtl Attending Provider Instructions: Follow up with your primary care provider within 1 week ( Please call to schedule for the appointment) Follow up wit cardiology Dr. Schuler in 3 weeks Seek medical attention if you develop any shortness of breath, palpitation Continue monitor for any abnormal bleeding Check BMP in 1 week to monitor your electrolytes Fall precaution Medication Instructions: Eliquis Your condition is typically treated with an anticoagulant. Anticoagulants will thin your blood to help prevent new clots. You should take her medication exactly as directed. Never skip a dose. Never take a double dose. If you miss a dose, take it as soon as you remember. Avoid NSAIDs (Motrin, Aleve, Naproxen, Ibuprofen, Advil, Meloxicam,..) due to risks of bleeding Call your Primary Care doctor if you experience any of the following: Swelling or Pain in your leg Sudden, continuous pain deep in a muscle Pain that worsens when you are active or when you stand still for a long time Chest Pain Sudden Shortness of Breath Rapid or pounding heart beat Fainting Dizziness Cough with blood or bloody sputum Sweating more than normal Bruises Heavy or uncontrolled bleeding Blood in your urine, stool or vomit Black or tarry stools Follow Up: It is important for you to keep your follow up appointments with your medical provider. Pending Studies at Discharge: No Stand-Alone Forms: My [facility], Smoking Cessation Medications and DC Order Prescriptions: New Eliquis 5 mg Tablet 5 mg PO BID Qty: 60 0RF diltiazem HCl 180 mg Capsule,Extended Release 24hr 180 mg PO QAM Qty: 30 0RF potassium chloride 10 mEq Tablet,Er Particles/Crystals 10 meq PO DAILY Qty: 30 0RF guaifenesin 200 mg Tablet 200 mg PO Q8H PRN (Reason: cough) Qty: 15 0RF Continued cyanocobalamin (vitamin B-12) 1,000 mcg/mL solution 1,000 mcg IM .EVERY 3 MONTHS losartan 100 mg tablet 100 mg PO QAM fluticasone propionate 50 mcg/actuation spray,suspension 2 spray INTRANASAL DAILY albuterol sulfate 2.5 mg /3 mL (0.083 %) solution for nebulization 2.5 mg continuous nebulization Q4 PRN (Reason: Wheezing) alprazolam 0.25 mg tablet 0.25 mg PO BID PRN (Reason: Anxiety) hydrochlorothiazide 25 mg tablet 25 mg PO QAM albuterol sulfate 90 mcg/actuation HFA aerosol inhaler 2 puff INHALATION Q4 PRN (Reason: Wheezing) cetirizine [Zyrtec] 10 mg Tablet 10 mg PO DAILY calcium citrate 200 mg (950 mg) Tablet 200 mg PO BID Flintstones Complete Tablet,Chewable 1 tab PO DAILY acetaminophen 500 mg Tablet 500 mg PO Q6H PRN (Reason: pain,severe) prednisone 20 mg tablet 20 mg PO UD Qty: 7 0RF Rx Instructions: take 2 tab for 2 days, then 1 tab for 3 days. then stop Discharge Orders: Discharge Order (Routine); Ordered 04/14/22 Ordered By: Celestina Weir Admission Data Admit Date/Time: 04/12/22 12:31 Attending Provider: Celestina Weir Admit Provider: Nata Banerjee Primary Care Provider: Konstantin Scott Other Providers: Nata Banerjee ; Garrison Bell ; Katy Childers ; Casandra Jarquin ; Cayla Kramer ; Marilyn Davis ; Dinora High. ; Long Luna ; Asim Mcdaniels ; Wilmer June ; Simon Stanford ; Shameka Stanford ; Yanick Davidson ; Mary Latham ; Bernardo Loyola ; Moses Castano ; Cesar Whiting ; Romario Yip ; Phyllis Pierre ; Saravanan Pagan A ; Angelica Keyes ; Adriana Pagan ; Jesu Pineda E ; Dominga Knox ; Lucio Randolph. ; Eden Aguirre ; Maisha Castillo ; Cal Colby ; Lzu Petit A ; Josefina Villa A ; Rajwinder Carreon ; Fadia Hadley ; Jose Luis Hadley V ; Dino Buckner ; Casandra Alamo. ; Rafat Borges ; Gwen Castrejon ; Jose Luis Villegas ; John Pierre ; Oswaldo Momin. ; Magnolia Stanley ; An Valenzuela. ; Jose Luis James. ; Suresh Parker. ; Sina Landry. ; Po Yip ; Lizette Hernandez A. ; Sanjeev Choudhary ; Richard Hayes. ; Viet Renee ; Sanjeev Figueroa ; Long Chavez Jr ; Loraine Salomon. ; Aneglla August A. ; Olimpia Ly. ; Cal Erickson ; Marilyn Garza ; Simon Rothman. ; Milo Villanueva I. ; Nyla Hutson S. ; Angella Torrez A. ; Sherrie Perez S.
--- NOTE | 2022-04-15 05:11 | Electrocardiogram Report ---
Test Reason : Blood Pressure : / mmHG Vent. Rate : 097 BPM Atrial Rate : 097 BPM P-R Int : 136 ms QRS Dur : 080 ms QT Int : 376 ms P-R-T Axes : 050 037 012 degrees QTc Int : 477 ms Normal sinus rhythm Normal ECG When compared with ECG of 12-APR-2022 11:30, Sinus rhythm has replaced Atrial fibrillation Vent. rate has decreased BY 76 BPM Confirmed by Vamshi Sommers ([id number]) on 04/15/2022 5:10:58 AM Referred By: REFERRED SELF Confirmed By:Vamshi Sommers
[2022-04-15] MEDS ORDERED: POTASSIUM CHLORIDE 10 MEQ TABCR PO SCH (09:00)
== END 2022-04-14 18:19 | disposition home or self-care (01) | DRG 310 ==
LOC: ED 11:12 → EDINP 12:31 → SUATTDRO 12:31 → 2S 16:12

== ENCOUNTER 2022-09-22 15:39 | Inpatient (IN) ==
[2022-09-22] MEDS ORDERED: SODIUM CHLORIDE 0.9% 1000ML 1,000 ML IV ONE (16:19)
[2022-09-22] MEDS ORDERED: KETOROLAC TROMETHAMINE 15 MG/ML VIAL IV STA (16:19)
--- NOTE | 2022-09-22 16:27 | Emergency Department Note ---
History of Present Illness General Chief complaint: Abdominal Pain Stated complaint: LOWER RT ABDOMINAL PAIN Time Seen by Provider: 09/22/22 16:04 History of Present Illness Maximum Pain Intensity: 6 52-year-old female with PMH significant for asthma, HTN, afib not on AC, migraines who presents to the emergency department for evaluation of abdominal pain. Patient states she started on Monday with severe central abdominal cramping.. It is since localized to the right lower quadrant. She describes it as a heavy/pressure feeling. It is exacerbated with movement. She notes assoc iated nausea and chills. No vomiting or fevers. She states she still gets her menstrual cycle, LMP 08/18/22. She did start spotting on Monday and assumed it was her menstrual cycle beginning. Her periods have been irregular and heavy lately and is currently undergoing work-up with her PLASTICS PLATER, Dr. Rendon for this. She has had no further vaginal bleeding since Monday. She recently had a PAP smear performed a few weeks ago and was normal. She denies chest pain, shortness of breath, diarrhea or constipation, urinary symptoms. She reports a history of tubal ligation and gastric bypass. She also notes a history of diverticulitis. She has tried Tylenol for symptoms. Home Medications Medication Instructions Recorded Confirmed Type acetaminophen 500 mg tablet 500 mg PO Q6H PRN pain,severe 04/12/22 09/22/22 History albuterol sulfate 2.5 mg/3 mL 2.5 mg continuous nebulization Q4 04/12/22 09/22/22 History (0.083 %) solution for nebulization PRN Wheezing albuterol sulfate 90 mcg/actuation 2 puff inhalation Q4 PRN Wheezing 04/12/22 09/22/22 History aerosol inhaler alprazolam 0.25 mg tablet 0.25 mg PO BID PRN Anxiety 04/12/22 09/22/22 History calcium citrate 200 mg (950 mg) 200 mg PO BID 04/12/22 09/22/22 History tablet cetirizine 10 mg tablet (Zyrtec) 10 mg PO DAILY 04/12/22 09/22/22 History cyanocobalamin (vitamin B-12) 1,000 mcg IM .EVERY 3 MONTHS 04/12/22 09/22/22 History 1,000 mcg/mL injection solution fluticasone propionate 50 2 spray intranasal DAILY 04/12/22 09/22/22 History mcg/actuation nasal spray,suspension hydrochlorothiazide 25 mg tablet 25 mg PO QAM 04/12/22 09/22/22 History losartan 100 mg tablet 100 mg PO QAM 04/12/22 09/22/22 History pediatric multivitamin no.76 1 tab PO DAILY 04/12/22 09/22/22 History (Flintstones Complete chewable tablet) diltiazem HCl 180 mg 180 mg PO QAM #30 caps 04/14/22 09/22/22 Rx capsule,extended release 24 hr guaifenesin 200 mg tablet 200 mg PO Q8H PRN cough #15 tabs 04/14/22 09/22/22 Rx Allergies Allergy/AdvReac Type Severity Reaction Status Date / Time No Known Allergies Allergy Unverified 04/12/22 12:02 Past Med/Surg History Medical History (Updated 09/22/22 @ 18:56 by Nancy Benitez PA-C) Acute appendicitis with localized peritonitis Asthma Asthma Hypertension Intestinal postoperative nonabsorption Lumbar degenerative disc disease Migraine New onset atrial fibrillation Panic disorder Surgical History (Updated 09/22/22 @ 18:37 by Cal Clemens DO, FACS) Delivery by section H/O gastric bypass History of gastric bypass Family History Other Heart disease Social History Smoking Status: Never smoker Hx Alcohol Use: Yes Alcohol type: other Hx Substance Use: No Preferred Language: Syriac Communication Ability: Effective Finish Inspector Required: No Beliefs That Will Affect Care: None Current Living Situation: Family Feels Safe at Home: Yes Assistive Devices: Nebulizer Physical Exam Vital Signs Vital Signs - 24 hr 09/22/22 15:44 09/22/22 16:05 09/22/22 16:00 Temperature 36.6 C Temperature Source Temporal Artery Scan Pulse Rate 94 H 93 H Pulse Rate [Left Finger] Pulse Rhythm [Left Finger] Pulse Strength [Left Finger] Respiratory Rate Respiratory Effort / Characteristics Respiratory Depth Respiratory Pattern Blood Pressure 165/114 H Blood Pressure [Left Arm] Blood Pressure Mean 131 Blood Pressure Mean [Left Arm] Blood Pressure Position [Left Arm] Pulse Oximetry 98 98 Oxygen Delivery Method Room Air Room Air Sepsis Recent Fever Within 48 Hours No Sepsis New/Unexplained Change in Mental Status No Sepsis Action Taken by Nursing No Action Required 09/22/22 16:50 09/22/22 18:20 09/22/22 18:50 Temperature 36.7 C Temperature Source Oral Pulse Rate Pulse Rate [Left Finger] 79 85 84 Pulse Rhythm [Left Finger] Regular Pulse Strength [Left Finger] Normal Respiratory Rate 18 16 18 Respiratory Effort / Characteristics Non-Labored Spontaneous Non-Labored Spontaneous Respiratory Depth Normal Normal Respiratory Pattern Regular Regular Blood Pressure Blood Pressure [Left Arm] 145/112 H 154/99 H 176/120 H Blood Pressure Mean Blood Pressure Mean [Left Arm] 123 117 138 Blood Pressure Position [Left Arm] Lying Sitting Semi-fowlers Pulse Oximetry 98 98 98 Oxygen Delivery Method Room Air Room Air Room Air Sepsis Recent Fever Within 48 Hours Sepsis New/Unexplained Change in Mental Status Sepsis Action Taken by Nursing Constitutional: alert and oriented x3. no acute distress. Nontoxic HEENT: normocephalic, atraumatic. normal conjunctiva.PERRLA. EOM's grossly intact. Respiratory: lungs are clear to auscultation without wheezes, rhonchi, or rales bilaterally. equal chest rise. normal respiratory effort, no accessory muscle use. Cardiovascular: normal heart sounds without murmur. regular rate and rhythm. GI: abdomen is soft, nondistended. Right lower quadrant tenderness to palpation. No palpable masses. No rebound tenderness or guarding. No CVA tenderness MSK: Moves all 4 extremities spontaneously. Peripheral vascular: extremities warm and well perfused Psych:appropriate mood and affect. Course Administered Medications Discontinued Medications Sodium Chloride (Nss 1000ml) 1,000 mls @ 999 mls/hr IV .Q1H1M ONE Stop: 09/22/22 17:19 Last Infusion: 09/22/22 18:00 Dose: 0 mls/hr Documented By: Admin: 09/22/22 16:49 Dose: 999 mls/hr Documented By: CAM Piperacillin Sod/Tazobactam Sod (Zosyn) 4.5 gm in 120 mls @ 240 mls/hr IV NOW ONE Stop: 09/22/22 17:57 Last Infusion: 09/22/22 18:08 Dose: 0 mls/hr Documented By: Admin: 09/22/22 17:38 Dose: 240 mls/hr Documented By: CAM Ioversol (Optiray 320 100ml) 94 ml IV ONCE ONE Stop: 09/22/22 17:08 Last Admin: 09/22/22 17:07 Dose: 94 ml Documented By: POLINA Ketorolac Tromethamine (Ketorolac Tromethamine 15 Mg/Ml Vial) 15 mg IV NOW STA Stop: 09/22/22 16:20 Last Admin: 09/22/22 16:49 Dose: 15 mg Documented By: CAM Medical Decision Making Differential Diagnosis Appendicitis, ovarian cyst, ovarian torsion, ectopic , TOA, PID, infect ions, diverticulitis, UTI, obstruction, mesenteric ischemia, aortic pathology, inflammatory bowel disease, renal colic, PUD, pancreatitis, biliary pathology, hernia, volvulus, constipation, as well as other pathologies. Laboratory Data Attestation: I reviewed the patient's lab results. 09/22/22 16:09 09/22/22 16:09 Lab Results 09/22/22 09/22/22 09/22/22 Range/Units 16:09 16:09 16:09 WBC 12.44 H (4.8-10.8) K/ul RBC 4.03 L (4.20-5.40) M/uL Hgb 13.0 (12.0-16.0) g/dl Hct 37.2 (37.0-47.0) % MCV 92.3 (80.0-100.0) fL MCH 32.3 (25.0-34.0) pg MCHC 34.9 (32.0-36.0) g/dL RDW Std Deviation 47.4 H (36.4-46.3) fL RDW Coeff of Geoff 13.9 (11.5-14.5) % Plt Count 219 (130-400) K/uL MPV 10.1 (9.4-12.4) fL Immature Gran % (Auto) 0.4 % Neut % (Auto) 70.7 % Lymph % (Auto) 18.7 % [place] % (Auto) 9.4 % Eos % (Auto) 0.4 % Baso % (Auto) 0.4 % Neut # (Auto) 8.79 H (1.40-6.50) K/uL Lymph # (Auto) 2.33 (1.2-3.4) K/uL [place] # (Auto) 1.17 H (0.11-0.59) K/uL Eos # (Auto) 0.05 (0-0.50) K/uL Baso # (Auto) 0.05 (0-0.2) K/uL Immature Gran # (Auto) 0.05 (0.01-0.20) K/uL Sodium 137 (136-145) mmol/L Potassium 3.8 (3.5-5.1) mmol/L Chloride 105 (98-107) mmol/L Carbon Dioxide 24 (21-32) mmol/L Anion Gap 8 (3-11) BUN 10 (6-23) mg/dl Creatinine 0.73 (0.6-1.2) mg/dl Est Cr Clr Drug Dosing 113.3 ml/min Est GFR ( Amer) 110.5 ml/min Est GFR (Non-Af Amer) 95.4 ml/min BUN/Creatinine Ratio 13.7 (10-20) Glucose 104 H (70-99(Fasting)) mg/dl Lactate (0.4-2.0) mmol/L Calcium 8.8 (8.6-10.3) mg/dl Total Bilirubin 0.7 (0.2-1.0) mg/dl AST 21 (13-39) U/L ALT 20 (7-52) U/L Alkaline Phosphatase 68 (34-104) U/L Total Protein 7.3 (6.0-8.3) gm/dl Albumin 3.9 (3.4-5.0) gm/dl Globulin 3.4 (2.5-4.0) gm/dl Albumin/Globulin Ratio 1.1 (0.9-2) Lipase 15 (11-82) U/L HCG, Qual Negative (Negative) Urine Color Urine Appearance (Clear) Urine pH (4.5-7.5) Ur Specific [place] (1.000-1.030) Urine Protein (Negative) Urine Glucose (UA) (Negative) Urine Ketones (Negative) Urine Blood (Negative) Urine Nitrite (Negative) Urine Bilirubin (Negative) Urine Urobilinogen (Negative) Ur Leukocyte Esterase (Negative) Urine WBC (Auto) (0-5) /hpf Urine RBC (Auto) (0-4) /hpf U Hyaline Cast (Auto) (0-5) /lpf U Epithel Cells (Auto) (0-5) /lpf Urine Bacteria (Auto) (Negative) Urine Mucus (None Prsent) SARS-CoV-2, RNA, NAAT (NEGATIVE) 09/22/22 09/22/22 09/22/22 Range/Units 17:28 17:40 18:39 WBC (4.8-10.8) K/ul RBC (4.20-5.40) M/uL Hgb (12.0-16.0) g/dl Hct (37.0-47.0) % MCV (80.0-100.0) fL MCH (25.0-34.0) pg MCHC (32.0-36.0) g/dL RDW Std Deviation (36.4-46.3) fL RDW Coeff of Geoff (11.5-14.5) % Plt Count (130-400) K/uL MPV (9.4-12.4) fL Immature Gran % (Auto) % Neut % (Auto) % Lymph % (Auto) % [place] % (Auto) % Eos % (Auto) % Baso % (Auto) % Neut # (Auto) (1.40-6.50) K/uL Lymph # (Auto) (1.2-3.4) K/uL [place] # (Auto) (0.11-0.59) K/uL Eos # (Auto) (0-0.50) K/uL Baso # (Auto) (0-0.2) K/uL Immature Gran # (Auto) (0.01-0.20) K/uL Sodium (136-145) mmol/L Potassium (3.5-5.1) mmol/L Chloride (98-107) mmol/L Carbon Dioxide (21-32) mmol/L Anion Gap (3-11) BUN (6-23) mg/dl Creatinine (0.6-1.2) mg/dl Est Cr Clr Drug Dosing ml/min Est GFR ( Amer) ml/min Est GFR (Non-Af Amer) ml/min BUN/Creatinine Ratio (10-20) Glucose (70-99(Fasting)) mg/dl Lactate 0.8 (0.4-2.0) mmol/L Calcium (8.6-10.3) mg/dl Total Bilirubin (0.2-1.0) mg/dl AST (13-39) U/L ALT (7-52) U/L Alkaline Phosphatase (34-104) U/L Total Protein (6.0-8.3) gm/dl Albumin (3.4-5.0) gm/dl Globulin (2.5-4.0) gm/dl Albumin/Globulin Ratio (0.9-2) Lipase (11-82) U/L HCG, Qual (Negative) Urine Color Dark Yellow Urine Appearance Cloudy A (Clear) Urine pH 6.0 (4.5-7.5) Ur Specific [place] > 1.045 H (1.000-1.030) Urine Protein Trace H (Negative) Urine Glucose (UA) Negative (Negative) Urine Ketones 1+ H (Negative) Urine Blood 1+ H (Negative) Urine Nitrite Negative (Negative) Urine Bilirubin Negative (Negative) Urine Urobilinogen Negative (Negative) Ur Leukocyte Esterase Trace H (Negative) Urine WBC (Auto) 10-30 H (0-5) /hpf Urine RBC (Auto) 0-4 (0-4) /hpf U Hyaline Cast (Auto) 5-10 H (0-5) /lpf U Epithel Cells (Auto) >30 H (0-5) /lpf Urine Bacteria (Auto) 1+ H (Negative) Urine Mucus Present A (None Prsent) SARS-CoV-2, RNA, NAAT NEGATIVE (NEGATIVE) Imaging Data Radiologist's Impression: Abdomen/Pelvis CT 09/22/22 16:[address] WITH IV CONTRAST CT DOSE: 1324.46 mGy.cm HISTORY: Acute right lower quadrant abdominal pain RLQ pain TECHNIQUE: Multiaxial CT images of the abdomen and pelvis were performed following the IV administration of 94 cc of Optiray, A dose lowering technique was utilized adhering to the principles of ALARA. COMPARISON STUDY: 12/12/2016 FINDINGS: The lung bases. No pneumatosis or pneumoperitoneum. Unremarkable spleen, pancreas and adrenal glands. Mildly distended gallbladder. Focal fatty infiltration of the liver near the falciform ligament. Patency of the hepatic and portal veins. Unremarkable kidneys. No hydronephrosis. Partial distention of the urinary bladder with mild wall thickening. Unremarkable uterus. No abdominal aortic aneurysm or lymphadenopathy. Mild distal esophageal wall thickening. Gloria-en-Y gastric bypass. Colonic diverticulosis. Acute appendicitis. The distal appendiceal lumen is dilated and fluid-filled with a 1.2 cm transversely. Mucosal hyperemia is noted with cancer amount of periappendiceal inflammation and trace free pelvic fluid. Subcentimeter lymph nodes in the right lower quadrant mesentery are likely react milton. Mild discontinuity of the appendiceal tip. No drainable fluid collection. Severe intervertebral disc space narrowing at L5-S1. No acute fracture. IMPRESSION: 1. Acute appendicitis with possible perforation of the appendiceal tip. 2. Considerable periappendiceal inflammation without drainable fluid collection. 3. No bowel obstruction or pneumoperitoneum. 4. Colonic diverticulosis. ACT 112: Negative or not required by law. The above report was generated using voice recognition software. It may contain grammatical, syntax or spelling errors. Electronically signed by: Galileo Walden M.D. 09/22/2022 5:21 PM MDM Narrative 52-year-old female presents to the emergency department for evaluation of right lower quadrant abdominal pain.Review of pertinent visits and past medical history performed. Vital signs in ED demonstrate hypertension as well as tachycardia. She is afebrile. IV access was established and labs were obtained. CBC demonstrates leukocytosis of 12.4 with left shift. No acute anemia. CMP without significant electrolyte abnormalities. Renal function within normal limits. LFTs and lipase unremarkable. hCG negative. Lactate 0.8. Urinalysis demonstrates +1 ketones, blood, bacteria as well as greater than 30 epithelial cells. This appears consistent with contamination. Urine culture was sent. On exam, patient is nontoxic-appearing in no acute distress. She is tender to palpation in the right lower quadrant without rebound tenderness or guarding. No CVA tenderness. Lungs CTA. Remainder of physical exam unremarkable. She was treated with IV Toradol and [address] abdomen/pelvis with contrast was performed to evaluate her abdominal pain. This was personally reviewed as well as interpreted by radiology and demonstrates acute appendicitis with possible perforation of the appendiceal tip. No obvious abscess. These findings were discussed with general surgery, Dr. Clemens, who came to evaluate patient at bedside and recommended emergent laparoscopic surgery. Patient was given dose of Zosyn here in the ED. She was taken to the OR in stable condition. Impression & Plan Acute appendicitis with generalized peritonitis, Right lower quadrant abdominal pain Discharge Plan Visit Data Chief Complaint: Abdominal Pain Stated Complaint: LOWER RT ABDOMINAL PAIN ED Provider: Jos Moya ED Midlevel Provider: Nancy Benitez Discharge Problem: Acute appendicitis with generalized peritonitis, Right lower quadrant abdominal pain Patient Disposition: Being Evaluated by Surgeon Discharge Instructions Interventions: ED Discharge Assessment Last Done: 09/22/22 18:50
[2022-09-22 16:33] LABS: Basophils # (auto) 0.05 K/uL (0-0.2); Basophils % (auto) 0.4 %; Eosinophils # (auto) 0.05 K/uL (0-0.50); Eosinophils % (auto) 0.4 %; Hematocrit (blood only) 37.2 % (37.0-47.0); Immature Granulocytes # (auto) 0.05 K/uL (0.01-0.20); Immature Granulocytes % (auto) 0.4 %; Lymphocytes # (auto) 2.33 K/uL (1.2-3.4); Lymphocytes % (auto) 18.7 %; Mean Corpuscular Hemoglobin 32.3 pg (25.0-34.0); Mean Corpuscular Hgb Conc 34.9 g/dL (32.0-36.0); Mean Corpuscular Volume 92.3 fL (80.0-100.0); Mean Platelet Volume 10.1 fL (9.4-12.4); Monocytes # (auto) 1.17 K/uL (0.11-0.59); Monocytes % (auto) 9.4 %; Neutrophils # (auto) 8.79 K/uL (1.40-6.50); Neutrophils % (auto) 70.7 %; Platelet Count 219 K/uL (130-400); RDW Coefficient of Variation 13.9 % (11.5-14.5); RDW Standard Deviation 47.4 fL (36.4-46.3); Red Blood Count 4.03 M/uL (4.20-5.40); White Blood Count 12.44 K/ul (4.8-10.8)
[2022-09-22 16:45] LABS: Albumin Globulin Ratio 1.1 (0.9-2); Albumin Level 3.9 gm/dl (3.4-5.0); BUN Creatinine Ratio 13.7 (10-20); Bilirubin,Total 0.7 mg/dl (0.2-1.0); Calcium 8.8 mg/dl (8.6-10.3); Creatinine Clr Calc Pharmacy 113.3 ml/min; Est GFR (African American) 110.5 ml/min; Est GFR (Non-African American) 95.4 ml/min; Globulin 3.4 gm/dl (2.5-4.0); Potassium 3.8 mmol/L (3.5-5.1); Total Protein 7.3 gm/dl (6.0-8.3)
[2022-09-22] MEDS ORDERED: OPTIRAY 320 100ml IV ONE (17:07)
--- NOTE | 2022-09-22 17:23 | CT Scan Report ---
ABDOMEN AND PELVIS CT WITH IV CONTRAST CT DOSE: 1324.46 mGy.cm HISTORY: Acute right lower quadrant abdominal pain RLQ pain TECHNIQUE: Multiaxial CT images of the abdomen and pelvis were performed following the IV administrat ion of 94 cc of Optiray, A dose lowering technique was utilized adhering to the principles of ALARA. COMPARISON STUDY: 12/12/2016 FINDINGS: The lung bases. No pneumatosis or pneumoperitoneum. Unremarkable spleen, pancreas and adren al glands. Mildly distended gallbladder. Focal fatty infiltration of the liver near the falciform lig ament. Patency of the hepatic and portal veins. Unremarkable kidneys. No hydronephrosis. Partial dist ention of the urinary bladder with mild wall thickening. Unremarkable uterus. No abdominal aortic ane urysm or lymphadenopathy. Mild distal esophageal wall thickening. Gloria-en-Y gastric bypass. Colonic diverticulosis. Acute appen dicitis. The distal appendiceal lumen is dilated and fluid-filled with a 1.2 cm transversely. Mucosal hyperemia is noted with cancer amount of periappendiceal inflammation and trace free pelvic fluid. S ubcentimeter lymph nodes in the right lower quadrant mesentery are likely reactive. Mild discontinuit y of the appendiceal tip. No drainable fluid collection. Severe intervertebral disc space narrowing a t L5-S1. No acute fracture. IMPRESSION: 1. Acute appendicitis with possible perforation of the appendiceal tip. 2. Considerable periappendiceal inflammation without drainable fluid collection. 3. No bowel obstruction or pneumoperitoneum. 4. Colonic diverticulosis. ACT 112: Negative or not required by law. The above report was generated using voice recognition software. It may contain grammatical, syntax o r spelling errors. Electronically signed by: Galileo Walden M.D. 09/22/2022 5:21 PM
[2022-09-22 17:26] LABS: Pregnancy Test, Serum Negative (Negative)
[2022-09-22] MEDS ORDERED: PIPERACILLIN/TAZOBACTAM 4.5 GM/120 ML BAG IV ONE (17:28)
[2022-09-22 17:43] LABS: Appearance Urine Cloudy (Clear); Bilirubin Urine Negative (Negative); Blood Urine 1+ (Negative); Color Urine Dark Yellow; Epithelial Cell Urine Auto >30 /lpf (0-5); Glucose Urine UA Negative (Negative); Ketones Urine 1+ (Negative); Leukocyte Esterase Urine Trace (Negative); Nitrite Urine Negative (Negative); Protein Urine Trace (Negative); Specific Gravity Urine > 1.045 (1.000-1.030); Urobilinogen Urine Negative (Negative)
[2022-09-22 18:33] LABS: Bacteria Urine Automated 1+ (Negative); Mucus Urine Present (None Prsent)
[2022-09-22 18:34] LABS: RBC Urine Automated 0-4 /hpf (0-4)
[2022-09-22] MEDS ORDERED: HYDROmorphone INJ 2 MG/ML SYR/VIAL IV PRN ×2 (18:35→18:59)
[2022-09-22] MEDS ORDERED: ONDANSETRON INJ 2 MG/ML 2 ML VIAL IV PRN ×3 (18:35→21:59)
[2022-09-22] MEDS ORDERED: ATROPINE SULFATE 0.1 MG/ML 10ML SYR IV PRN ×2 (18:35→18:59)
[2022-09-22] MEDS ORDERED: PROMETHAZINE HCL 12.5 MG in SODIUM CHLORIDE 0.9% 50 ML IV PRN ×2 (18:35→18:59)
[2022-09-22] MEDS ORDERED: fentaNYL citrate PF 100 MCG/2 ML VIAL IV PRN (18:35)
[2022-09-22] MEDS ORDERED: ePHEDrine sulfate 50 MG/ML AMP IV PRN ×2 (18:35→18:59)
--- NOTE | 2022-09-22 18:36 | Anesthesiology Consultation ---
Date of Service September 22, 2022 Assessment & Plan Chart Review Chart Review: Acceptable Risk for Surgery Consults Requested none History Surgery Operation Date: 09/22/22 18:45 Proposed Procedures p Laparoscopic Appendectomy - Cal Clemens DO, FACS Height/Weight Height: 5 ft 6 in Weight: 107.9 kg Allergies Allergy/AdvReac Type Severity Reaction Status Date / Time No Known Allergies Allergy Unverified 04/12/22 12:02 Medications Home Medications Medication Instructions Recorded Confirmed Last Taken acetaminophen 500 mg tablet 500 mg PO Q6H PRN pain,severe 04/12/22 09/22/22 09/22/22 albuterol sulfate 2.5 mg/3 mL 2.5 mg continuous nebulization Q4 04/12/22 09/22/22 Unknown (0.083 %) solution for nebulization PRN Wheezing albuterol sulfate 90 mcg/actuation 2 puff inhalation Q4 PRN Wheezing 04/12/22 09/22/22 09/22/22 aerosol inhaler alprazolam 0.25 mg tablet 0.25 mg PO BID PRN Anxiety 04/12/22 09/22/22 Unknown calcium citrate 200 mg (950 mg) 200 mg PO BID 04/12/22 09/22/22 Unknown tablet cetirizine 10 mg tablet (Zyrtec) 10 mg PO DAILY 04/12/22 09/22/22 09/22/22 cyanocobalamin (vitamin B-12) 1,000 mcg IM .EVERY 3 MONTHS 04/12/22 09/22/22 Unknown 1,000 mcg/mL injection solution fluticasone propionate 50 2 spray intranasal DAILY 04/12/22 09/22/22 09/21/22 mcg/actuation nasal spray,suspension hydrochlorothiazide 25 mg tablet 25 mg PO QAM 04/12/22 09/22/22 09/21/22 losartan 100 mg tablet 100 mg PO QAM 04/12/22 09/22/22 09/21/22 pediatric multivitamin no.76 1 tab PO DAILY 04/12/22 09/22/22 09/21/22 (Flintstones Complete chewable tablet) diltiazem HCl 180 mg 180 mg PO QAM #30 caps 04/14/22 09/22/22 09/21/22 capsule,extended release 24 hr guaifenesin 200 mg tablet 200 mg PO Q8H PRN cough #15 tabs 04/14/22 09/22/22 Unknown Past Medical History Medical History Asthma Asthma Hypertension Intestinal postoperative nonabsorption Lumbar degenerative disc disease Migraine New onset atrial fibrillation Panic disorder Past Family History Family History Other Heart disease Past Surgical History Surgical History Delivery by section H/O gastric bypass History of gastric bypass Social History Smoking Status: Never smoker Hx Alcohol Use: Yes Alcohol type: other alcohol intake frequency: holidays/special occasions only Hx Substance Use: No Physical Exam Vital Signs Last Vital Signs Temp 36.6 C 09/22/22 15:44 Pulse 85 09/22/22 18:20 Resp 16 09/22/22 18:20 BP 154/99 H 09/22/22 18:20 Pulse Ox 98 09/22/22 18:20 O2 Del Method Room Air 09/22/22 18:20 Testing Laboratory Results 09/22/22 16:09 09/22/22 16:09 Urine Color Dark Yellow 09/22/22 17:28 Urine Appearance Cloudy (Clear) A 09/22/22 17:28 Urine pH 6.0 (4.5-7.5) 09/22/22 17:28 Ur Specific [place] > 1.045 (1.000-1.030) H 09/22/22 17:28 Urine Protein Trace (Negative) H 09/22/22 17:28 Urine Glucose (UA) Negative (Negative) 09/22/22 17:28 Urine Ketones 1+ (Negative) H 09/22/22 17:28 Urine Nitrite Negative (Negative) 09/22/22 17:28 Ur Leukocyte Esterase Trace (Negative) H 09/22/22 17:28 Urine WBC (Auto) 10-30 /hpf (0-5) H 09/22/22 17:28 Urine RBC (Auto) 0-4 /hpf (0-4) 09/22/22 17:28 U Hyaline Cast (Auto) 5-10 /lpf (0-5) H 09/22/22 17:28 U Epithel Cells (Auto) >30 /lpf (0-5) H 09/22/22 17:28 Urine Bacteria (Auto) 1+ (Negative) H 09/22/22 17:28
--- NOTE | 2022-09-22 18:38 | History & Physical Report ---
Date of Service September 22, 2022 Assessment & Plan (1) Acute appendicitis with localized peritonitis: Plan: Acute appendicitis with possible perforation plan for laparoscopic appendectomy risks discussed to include but not limited to bleeding, infection, normal appendix, abscess, open surgery, damage to surrounding structures, need for future or more extensive surgery, and risks of anesthesia. Admit for observation overnight, if perforated may need several days IV a ntibiotic Wound care instructions, activity restrictions, and return precautions given, call with questions or concerns (2) H/O gastric bypass: (3) Asthma: (4) Hypertension: History of Present Illness Chief Complaint: Abdominal pain Primary Care Provider: Konstantin Scott MD 52-year-old female presented to the emergency department for chief complaint of abdominal pain. Started with pain yesterday that was periumbilical, eventually migrated to the right lower quadrant. She has not had pain like this before. No prior colonoscopy. She has a history of gastric bypass and tubal ligation. Last ate at 0300 this morning. Single episode of paroxysmal A-fib in the past, not on anticoagulation. 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 Allergies Allergy/AdvReac Type Severity Reaction Status Date / Time No Known Allergies Allergy Unverified 04/12/22 12:02 Home Medications Medication Instructions Recorded Confirmed Type acetaminophen 500 mg tablet 500 mg PO Q6H PRN pain,severe 04/12/22 09/22/22 History albuterol sulfate 2.5 mg/3 mL 2.5 mg continuous nebulization Q4 04/12/22 09/22/22 History (0.083 %) solution for nebulization PRN Wheezing albuterol sulfate 90 mcg/actuation 2 puff inhalation Q4 PRN Wheezing 04/12/22 09/22/22 History aerosol inhaler alprazolam 0.25 mg tablet 0.25 mg PO BID PRN Anxiety 04/12/22 09/22/22 History calcium citrate 200 mg (950 mg) 200 mg PO BID 04/12/22 09/22/22 History tablet cetirizine 10 mg tablet (Zyrtec) 10 mg PO DAILY 04/12/22 09/22/22 History cyanocobalamin (vitamin B-12) 1,000 mcg IM .EVERY 3 MONTHS 04/12/22 09/22/22 History 1,000 mcg/mL injection solution fluticasone propionate 50 2 spray intranasal DAILY 04/12/22 09/22/22 History mcg/actuation nasal spray,suspension hydrochlorothiazide 25 mg tablet 25 mg PO QAM 04/12/22 09/22/22 History losartan 100 mg tablet 100 mg PO QAM 04/12/22 09/22/22 History pediatric multivitamin no.76 1 tab PO DAILY 04/12/22 09/22/22 History (Flintstones Complete chewable tablet) diltiazem HCl 180 mg 180 mg PO QAM #30 caps 04/14/22 09/22/22 Rx capsule,extended release 24 hr guaifenesin 200 mg tablet 200 mg PO Q8H PRN cough #15 tabs 04/14/22 09/22/22 Rx Past Med/Surg History Medical History (Updated 09/22/22 @ 18:37 by Cal Clemens DO, FACS) Acute appendicitis with localized peritonitis Asthma Asthma Hypertension Intestinal postoperative nonabsorption Lumbar degenerative disc disease Migraine New onset atrial fibrillation Panic disorder Surgical History (Updated 09/22/22 @ 18:37 by Cal Clemens DO, FACS) Delivery by section H/O gastric bypass History of gastric bypass Family History Other Heart disease Social History Smoking Status: Never smoker Hx Alcohol Use: Yes Alcohol type: other Hx Substance Use: No Preferred Language: Mohawk Communication Ability: Effective 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: No Beliefs That Will Affect Care: None Current Living Situation: Family Feels Safe at Home: Yes Assistive Devices: Nebulizer Review of Systems Review of Systems: All systems reviewed & are unremarkable except as noted in HPI & below Physical Exam Constitutional: WD/WN, vitals as above + obese Respiratory: normal respiratory effort, lungs clear to auscultation Cardiovascular: RRR, no murmur, no edema Gastrointestinal (Abdomen): Inspection/Auscultation: + abdominal surgical scar (Port site scars well-healed) Percussion/Palpation: + abdomen tender (Right lower quadrant tenderness to palpation with localized guarding), + guarding and abdomen soft; abdomen not rigid and no hernia Results & Data Results & Data Vital Signs (Past 12 Hours) Vital Signs Temp Pulse Pulse Resp BP BP Pulse Ox 06/15/23 18:20 85 16 154/99 H 98 09/22/22 16:50 79 18 145/112 H 98 09/22/22 16:00 98 09/22/22 16:05 93 H 09/22/22 15:44 36.6 C 94 H 165/114 H 98 O2 Del Method 09/22/22 18:20 Room Air 09/22/22 16:50 Room Air 09/22/22 16:00 Room Air 09/22/22 16:05 09/22/22 15:44 Room Air Laboratory Results Laboratory Results - last 24 hr 09/22/22 09/22/22 09/22/22 16:09 16:09 16:09 WBC 12.44 H RBC 4.03 L Hgb 13.0 Hct 37.2 MCV 92.3 MCH 32.3 MCHC 34.9 RDW Std Deviation 47.4 H RDW Coeff of Geoff 13.9 Plt Count 219 MPV 10.1 Immature Gran % (Auto) 0.4 Neut % (Auto) 70.7 Lymph % (Auto) 18.7 [place] % (Auto) 9.4 Eos % (Auto) 0.4 Baso % (Auto) 0.4 Neut # (Auto) 8.79 H Lymph # (Auto) 2.33 [place] # (Auto) 1.17 H Eos # (Auto) 0.05 Baso # (Auto) 0.05 Immature Gran # (Auto) 0.05 Sodium 137 Potassium 3.8 Chloride 105 Carbon Dioxide 24 Anion Gap 8 BUN 10 Creatinine 0.73 Est Cr Clr Drug Dosing 113.3 Est GFR ( Amer) 110.5 Est GFR (Non-Af Amer) 95.4 BUN/Creatinine Ratio 13.7 Glucose 104 H Calcium 8.8 Total Bilirubin 0.7 AST 21 ALT 20 Alkaline Phosphatase 68 Total Protein 7.3 Albumin 3.9 Globulin 3.4 Albumin/Globulin Ratio 1.1 Lipase 15 HCG, Qual Negative Urine Color Urine Appearance Urine pH Ur Specific [place] Urine Protein Urine Glucose (UA) Urine Ketones Urine Blood Urine Nitrite Urine Bilirubin Urine Urobilinogen Ur Leukocyte Esterase Urine WBC (Auto) Urine RBC (Auto) U Hyaline Cast (Auto) U Epithel Cells (Auto) Urine Bacteria (Auto) Urine Mucus SARS-CoV-2, RNA, NAAT 09/22/22 09/22/22 17:28 17:40 WBC RBC Hgb Hct MCV MCH MCHC RDW Std Deviation RDW Coeff of Geoff Plt Count MPV Immature Gran % (Auto) Neut % (Auto) Lymph % (Auto) [place] % (Auto) Eos % (Auto) Baso % (Auto) Neut # (Auto) Lymph # (Auto) [place] # (Auto) Eos # (Auto) Baso # (Auto) Immature Gran # (Auto) Sodium Potassium Chloride Carbon Dioxide Anion Gap BUN Creatinine Est Cr Clr Drug Dosing Est GFR ( Amer) Est GFR (Non-Af Amer) BUN/Creatinine Ratio Glucose Calcium Total Bilirubin AST ALT Alkaline Phosphatase Total Protein Albumin Globulin Albumin/Globulin Ratio Lipase HCG, Qual Urine Color Dark Yellow Urine Appearance Cloudy A Urine pH 6.0 Ur Specific [place] > 1.045 H Urine Protein Trace H Urine Glucose (UA) Negative Urine Ketones 1+ H Urine Blood 1+ H Urine Nitrite Negative Urine Bilirubin Negative Urine Urobilinogen Negative Ur Leukocyte Esterase Trace H Urine WBC (Auto) 10-30 H Urine RBC (Auto) 0-4 U Hyaline Cast (Auto) 5-10 H U Epithel Cells (Auto) >30 H Urine Bacteria (Auto) 1+ H Urine Mucus Present A SARS-CoV-2, RNA, NAAT NEGATIVE Diagnostic Findings I personally reviewed and interpreted the CT scan and agree with the assessment of acute appendicitis with significant inflammation and possible microperforation at the tip ABDOMEN AND PELVIS CT WITH IV CONTRAST CT DOSE: 1324.46 mGy.cm HISTORY: Acute right lower quadrant abdominal pain RLQ pain TECHNIQUE: Multiaxial CT images of the abdomen and pelvis were performed following the IV administration of 94 cc of Optiray, A dose lowering technique was utilized adhering to the principles of ALARA. COMPARISON STUDY: 12/12/2016 FINDINGS: The lung bases. No pneumatosis or pneumoperitoneum. Unremarkable spleen, pancreas and adrenal glands. Mildly distended gallbladder. Focal fatty infiltration of the liver near the falciform ligament. Patency of the hepatic and portal veins. Unremarkable kidneys. No hydronephrosis. Partial distention of the urinary bladder with mild wall thickening. Unremarkable uterus. No abdominal aortic aneurysm or lymphadenopathy. Mild distal esophageal wall thickening. Gloria-en-Y gastric bypass. Colonic diverticulosis. Acute appendicitis. The distal appendiceal lumen is dilated and fluid-filled with a 1.2 cm transversely. Mucosal hyperemia is noted with cancer amount of periappendiceal inflammation and trace free pelvic fluid. Subcentimeter lymph nodes in the right lower quadrant mesentery are likely reactive. Mild discontinuity of the appendiceal tip. No drainable fluid collection. Severe intervertebral disc space narrowing at L5-S1. No acute fracture. IMPRESSION: 1. Acute appendicitis with possible perforation of the appendiceal tip. 2. Considerable periappendiceal inflammation without drainable fluid collection. 3. No bowel obstruction or pneumoperitoneum. 4. Colonic diverticulosis. ACT 112: Negative or not required by law. The above report was generated using voice recognition software. It may contain grammatical, syntax or spelling errors. PG Care Time/CCT Total # of Minutes Spent Total Time Spent with Patient: Total time spent is greater than 50% in coordination of care (as documented) at patient's floor/unit and/or counseling patient: Coding Level of Care Code 19714 INT INP/OBS CARE 2/55MIN Diagnoses Acute appendicitis with localized peritonitis K35.30 H/O gastric bypass Z98.84 Asthma J45.909 Hypertension I10
[2022-09-22] MEDS ORDERED: MIDAZOLAM HCL 1 MG/ML 2ML VIAL ONE (19:08)
[2022-09-22] MEDS ORDERED: fentaNYL citrate PF 100 MCG/2 ML VIAL ONE ×3 (19:09→20:48)
[2022-09-22] MEDS ORDERED: LIDOCAINE 2% 2 ML VIAL/AMP(20MG/ML) INFIL ONE ×2 (19:10)
[2022-09-22] MEDS ORDERED: PROPOFOL IV EMULSION 10 MG/ML 20 ML VIAL IV ONE (19:10)
[2022-09-22] MEDS ORDERED: ONDANSETRON INJ 2 MG/ML 2 ML VIAL ONE ×2 (19:12→21:26)
[2022-09-22] MEDS ORDERED: ROCURONIUM BROMIDE 10 MG/ML 5 ML VIAL IV ONE (19:12)
[2022-09-22] MEDS ORDERED: DEXAMETHASONE SOD INJ 4 MG/ML VIAL ONE (19:12)
[2022-09-22] MEDS ORDERED: BUPIVACAINE 0.5 % 5 MG/1 ML MPF 30ML VIAL ONE (19:15)
--- NOTE | 2022-09-22 19:55 | Electrocardiogram Report ---
Test Reason : Blood Pressure : / mmHG Vent. Rate : 094 BPM Atrial Rate : 094 BPM P-R Int : 132 ms QRS Dur : 086 ms QT Int : 372 ms P-R-T Axes : 085 081 073 degrees QTc Int : 465 ms Normal sinus rhythm Normal ECG When compared with ECG of 14-APR-2022 05:43, T wave inversion no longer evident in Inferior leads Confirmed by Talha May ([id number]) on 09/22/2022 7:54:58 PM Referred By: REFERRED SELF Confirmed By:Luis Alberto May
[2022-09-22] MEDS ORDERED: LABETALOL HCL IV 5 MG/ML 20ML IV ONE (20:28)
[2022-09-22] MEDS ORDERED: NEOSTIGMINE METHYLSULFATE 1 MG/ML 10ML VIAL ONE (20:47)
[2022-09-22] MEDS ORDERED: GLYCOPYRROLATE 0.2 MG/ML VIAL ONE (20:47)
--- NOTE | 2022-09-22 20:55 | Operative Report ---
PG Post Operative Report Pre & Post Diagnosis Operation Date: 09/22/22 18:45 Pre-Op Diagnosis: Appendicitis Post-Op Diagnosis: Perforated appendicitis, contained I identified the patient and participated in the time-out.: Yes Procedure Operation Date: 09/22/22 18:45 Actual Procedures p Laparoscopic Appendectomy(Not Applicable) - Cal Clemens DO, ALKA Surgeon Cal Clemens DO, FACS Prep Room Supervisor Iain Rojas Estimated Blood Loss 20 Findings Consistent with Post-Op Diagnosis Retrocecal appendix with significant inflammation and contained perforation. Mesoappendix divided with Sonicision. Somewhat firm but healthy base divided with a purple loaded Endo STEPHANIE stapler. Drain placed. Specimens Appended Drains 10 mm SHELBI in right lower quadrant Anesthesia Type General Complications none Disposition Accompanied Patient To Recovery: No Disposition: Recovery Room Indications 52-year-old female presented with signs symptoms of appendicitis with concern for possible small perforation on CT. Plan for laparoscopic appendectomy. The risks of the procedure were discussed, all questions were answered, and the patient agreed to proceed with surgery as planned. Description of Procedure The patient was properly identified, consented, and taken to the operating room where she was placed in the supine position. General endotracheal anesthesia was induced. SCDs and a safety belt were placed. Preoperative antibiotics were administered. A Yoo catheter was not placed. The patient's abdomen was prepped and draped in the standard sterile fashion. Surgical timeout was performed and all parties were in agreement that this was the correct patient and procedure to be performed and we continued as planned. An incision was made to the left of the umbilicus. The Veress needle was inserted and saline drop test confirmed entry into the abdomen. The abdomen was insufflated with carbon dioxide with the patient tolerated without incident. The Veress needle was removed and the abdomen was entered using a 5 mm 30 degree scope and a 5 mm port using the Optiview technique. The introducer was removed and the camera reinserted. No damage from initial trocar placement was noted. No significant abnormality within the 4 quadrants of the abdomen. A 12 mm port was then placed in the left lower quadrant with care not to damage the epigastric vessels. A 5 mm port was placed in the suprapubic midline with care not to damage the bladder. The patient was placed in Trendelenburg position and rotated towards the left. The small bowel was swept away from the right lower quadrant. The appendix was retrocecal and there was significant inflammation near the base of the cecum. The cecum and right colon were partially mobilized by taking down the white line of [place] using the Sonicision. The cecum was grasped with an atraumatic grasper. There was fibrinous exudate at the origin of the appendix. Using a combination of Sonicision and suction dissection I was able to mobilize the appendix. It was significantly inflamed and showed a contained perforation with no abscess formation. The appendix was curled on itself and the perforation appeared to be in the midpoint. There was a large fecalith that spilled but was retrieved and placed in the Endo Catch bag at conclusion of the case. Eventually the appendix was freed and the base appeared healthy though was somewhat firm from the reactive inflammation. A window was created between the base of the appendix and the mesoappendix. A purple loaded endoscopic stapler was then used to divide the appendix at its base. The Sonicision was then used to divide the mesoappendix. Hemostasis was good. The appendix was placed in an Endo Catch bag and removed through the umbilical port site. There was some reactive fluid in the pelvis that was suctioned and the right lower quadrant and pelvis was irrigated and hemostasis was found to be good. A 10 mm flat SHELBI drain was placed into the right lower quadrant and exited through the periumbilical incision. This is secured in place with a 2-0 nylon suture. The fascia of the 12 mm port site in the left lower quadrant was closed with a [id number] 0 Vicryl suture using the Hugo-Landen device. The wound was irrigated, and the skin of all ports was closed with 4-0 Monocryl subcuticular sutures. Dermabond was placed over the wounds. A dressing was placed around the SHELBI. The patient was extubated in the operating room and taken to the PACU where she recovered without apparent incident. All sponge, instrument and needle counts were correct at the conclusion of the procedure. The patient tolerated the procedure well. The physician's assistant golf course superintendent was present and scrubbed for the entire the case. He was critical in positioning the patient, prepping and draping, retraction and exposure, driving the laparoscope, removal of the appendix, closure the incisions, and placement of the dressings. I attest to the content of the Intraoperative Record and any orders documented therein. Any exceptions are noted below.
[2022-09-22] MEDS: fentaNYL citrate PF 100 MCG/2 ML VIAL IV PRN ×2 (21:23→21:28)
--- NOTE | 2022-09-22 21:35 | Anesthesiology Progress Note ---
Date of Service September 22, 2022 Anesthesia Post Procedure Vital Signs Vital Signs: Temp Pulse Pulse Pulse Resp BP BP 09/22/22 21:30 75 19 109/84 09/22/22 21:20 73 13 118/77 09/22/22 21:10 69 15 97/62 L 09/22/22 21:00 36.8 C 83 19 112/44 L 09/22/22 18:50 36.7 C 84 18 176/120 H 09/22/22 18:20 85 16 154/99 H 09/22/22 16:50 79 18 145/112 H 09/22/22 16:00 09/22/22 16:05 93 H 09/22/22 15:44 36.6 C 94 H 165/114 H Pulse Ox O2 Del Method O2 Flow Rate 09/22/22 21:30 95 Nasal Cannula 2 09/22/22 21:20 95 Room Air 09/22/22 21:10 97 Oxymask 6 09/22/22 21:00 99 Oxymask 6 09/22/22 18:50 98 Room Air 09/22/22 18:20 98 Room Air 09/22/22 16:50 98 Room Air 09/22/22 16:00 98 Room Air 09/22/22 16:05 09/22/22 15:44 98 Room Air Pain Intensity Abdomen: Pain Intensity: 5 Transfer of Care Handoff Completed per policy Notes Mental Status: alert / awake / arousable and participated in evaluation Patient Amnestic to Procedure: Yes Nausea / Vomiting: adequately controlled Pain: adequately controlled Airway Patency, RR, SpO2: stable & adequate BP & HR: stable & adequate Hydration State: stable & adequate Anesthetic Complications: no major complications apparent
[2022-09-22] MEDS ORDERED: ALBUTEROL 0.083% NEBU SOLN 3 ML VIAL INH PRN (21:59)
[2022-09-22] MEDS ORDERED: ALBUTEROL HFA 8 GM INHALER INH PRN (21:59)
[2022-09-22] MEDS ORDERED: ACETAMINOPHEN 1,000 MG/100 ML VIAL IV PRN (21:59)
[2022-09-22] MEDS ORDERED: ALPRAZolam 0.25 MG TABLET PO PRN (21:59)
[2022-09-22] MEDS: LACTATED RINGER'S 1,000 ML IV SCH (22:28)
[2022-09-22] MEDS: PIPERACILLIN/TAZOBACTAM 4.5 GM in DEXTROSE 5% 100 ML IV SCH (22:28)
[2022-09-22] MEDS: KETOROLAC TROMETHAMINE 15 MG/ML VIAL IV SCH (22:28)
[2022-09-22] MEDS: MoRPHine SULFATE 4 MG/ML 1 ML CARP\\VIAL IV PRN (23:59)
[2022-09-23] MEDS: KETOROLAC TROMETHAMINE 15 MG/ML VIAL IV SCH ×2 (03:34→10:54)
[2022-09-23] MEDS: LACTATED RINGER'S 1,000 ML IV SCH (05:24)
[2022-09-23] MEDS: PIPERACILLIN/TAZOBACTAM 4.5 GM in DEXTROSE 5% 100 ML IV SCH ×2 (05:24→14:07)
[2022-09-23] MEDS: MoRPHine SULFATE 4 MG/ML 1 ML CARP\\VIAL IV PRN (06:09)
[2022-09-23 06:16] LABS: Basophils # (auto) 0.01 K/uL (0-0.2); Basophils % (auto) 0.1 %; Hematocrit (blood only) 33.2 % (37.0-47.0); Hemoglobin 11.3 g/dl (12.0-16.0); Immature Granulocytes # (auto) 0.05 K/uL (0.01-0.20); Immature Granulocytes % (auto) 0.5 %; Lymphocytes # (auto) 0.55 K/uL (1.2-3.4); Lymphocytes % (auto) 5.4 %; Mean Corpuscular Volume 94.1 fL (80.0-100.0); Mean Platelet Volume 10.1 fL (9.4-12.4); Monocytes # (auto) 0.59 K/uL (0.11-0.59); Monocytes % (auto) 5.8 %; Neutrophils # (auto) 8.92 K/uL (1.40-6.50); Neutrophils % (auto) 88.2 %; Platelet Count 183 K/uL (130-400); RDW Coefficient of Variation 13.8 % (11.5-14.5); RDW Standard Deviation 47.6 fL (36.4-46.3); Red Blood Count 3.53 M/uL (4.20-5.40); White Blood Count 10.12 K/ul (4.8-10.8)
[2022-09-23 06:27] LABS: BUN Creatinine Ratio 11.3 (10-20); Calcium 7.9 mg/dl (8.6-10.3); Creatinine Clr Calc Pharmacy 119.2 ml/min; Est GFR (African American) 114.3 ml/min; Est GFR (Non-African American) 98.6 ml/min; Potassium 3.8 mmol/L (3.5-5.1)
--- NOTE | 2022-09-23 08:42 | Surgery Progress Note ---
Date of Service September 23, 2022 Assessment & Plan (1) Status post laparoscopic appendectomy: Plan: POD 1 laparoscopic appendectomy for contained perforated appendicitis Diet as tolerated Continue IV antibiotics while inpatient We will reassess this afternoon, potential discharge If goes home today we will keep drain, if goes home over the weekend and drain can be removed 7 days antibiotics as an outpatient Wound care instructions, activity restrictions, and return precautions given Follow-up early next week if drain still in place for removal, or follow-up in general surgery clinic in 2 weeks if drain removed prior to discharge Dr. Fox covering over the weekend Admission and Anticipated Discharge Date Admission Date: September 22, 2022 Subjective POD #1 laparoscopic appendectomy with drain placement for contained perforated appendicitis. Incisions are very sore. Physical Exam Constitutional: WD/WN, vitals as above + obese Gastrointestinal (Abdomen): Inspection/Auscultation: + abdominal surgical incision (Healing) and + abdominal surgical drain present (Serosanguineous) Percussion/Palpation: + abdomen tender (Appropriately tender to palpate) and abdomen soft; no guarding and abdomen not rigid Results & Data Vital Signs (Past 12 Hours) Vital Signs Temp Pulse Pulse Resp BP Pulse Ox O2 Del Method 09/23/22 07:39 36.8 C 89 16 115/79 96 Room Air 09/23/22 04:14 36.8 C 103 H 18 109/71 95 Room Air 09/23/22 01:00 37 C 105 H 18 118/80 94 Room Air 09/22/22 23:51 36.9 C 89 18 107/72 94 Room Air 09/22/22 22:56 36.3 C L 89 18 105/69 96 Room Air 09/22/22 21:55 Nasal Cannula 09/22/22 21:55 36.2 C L 70 18 116/78 97 Nasal Cannula 09/22/22 21:55 Nasal Cannula 09/22/22 22:30 36.2 C L 70 18 116/78 97 Nasal Cannula 09/22/22 22:00 36.5 C 85 18 118/82 92 Room Air 09/22/22 21:40 36.7 C 68 15 119/89 96 Nasal Cannula 09/22/22 21:30 75 19 109/84 95 Nasal Cannula 09/22/22 21:20 73 13 118/77 95 Room Air 09/22/22 21:10 69 15 97/62 L 97 Oxymask 09/22/22 21:00 36.8 C 83 19 112/44 L 99 Oxymask O2 Flow Rate 09/23/22 07:39 09/23/22 04:14 09/23/22 01:00 09/22/22 23:51 09/22/22 22:56 09/22/22 21:55 2 09/22/22 21:55 2 09/22/22 21:55 2 09/22/22 22:30 2 09/22/22 22:00 09/22/22 21:40 2 09/22/22 21:30 2 09/22/22 21:20 09/22/22 21:10 6 09/22/22 21:00 6 Laboratory Results Laboratory Results - last 24 hr 09/22/22 09/22/22 09/22/22 16:09 16:09 16:09 WBC 12.44 H RBC 4.03 L Hgb 13.0 Hct 37.2 MCV 92.3 MCH 32.3 MCHC 34.9 RDW Std Deviation 47.4 H RDW Coeff of Geoff 13.9 Plt Count 219 MPV 10.1 Immature Gran % (Auto) 0.4 Neut % (Auto) 70.7 Lymph % (Auto) 18.7 [place] % (Auto) 9.4 Eos % (Auto) 0.4 Baso % (Auto) 0.4 Neut # (Auto) 8.79 H Lymph # (Auto) 2.33 [place] # (Auto) 1.17 H Eos # (Auto) 0.05 Baso # (Auto) 0.05 Immature Gran # (Auto) 0.05 Sodium 137 Potassium 3.8 Chloride 105 Carbon Dioxide 24 Anion Gap 8 BUN 10 Creatinine 0.73 Est Cr Clr Drug Dosing 113.3 Est GFR ( Amer) 110.5 Est GFR (Non-Af Amer) 95.4 BUN/Creatinine Ratio 13.7 Glucose 104 H Lactate Calcium 8.8 Total Bilirubin 0.7 AST 21 ALT 20 Alkaline Phosphatase 68 Total Protein 7.3 Albumin 3.9 Globulin 3.4 Albumin/Globulin Ratio 1.1 Lipase 15 HCG, Qual Negative Urine Color Urine Appearance Urine pH Ur Specific [place] Urine Protein Urine Glucose (UA) Urine Ketones Urine Blood Urine Nitrite Urine Bilirubin Urine Urobilinogen Ur Leukocyte Esterase Urine WBC (Auto) Urine RBC (Auto) U Hyaline Cast (Auto) U Epithel Cells (Auto) Urine Bacteria (Auto) Urine Mucus SARS-CoV-2, RNA, NAAT 09/22/22 09/22/22 09/22/22 17:28 17:40 18:39 WBC RBC Hgb Hct MCV MCH MCHC RDW Std Deviation RDW Coeff of Geoff Plt Count MPV Immature Gran % (Auto) Neut % (Auto) Lymph % (Auto) [place] % (Auto) Eos % (Auto) Baso % (Auto) Neut # (Auto) Lymph # (Auto) [place] # (Auto) Eos # (Auto) Baso # (Auto) Immature Gran # (Auto) Sodium Potassium Chloride Carbon Dioxide Anion Gap BUN Creatinine Est Cr Clr Drug Dosing Est GFR ( Amer) Est GFR (Non-Af Amer) BUN/Creatinine Ratio Glucose Lactate 0.8 Calcium Total Bilirubin AST ALT Alkaline Phosphatase Total Protein Albumin Globulin Albumin/Globulin Ratio Lipase HCG, Qual Urine Color Dark Yellow Urine Appearance Cloudy A Urine pH 6.0 Ur Specific [place] > 1.045 H Urine Protein Trace H Urine Glucose (UA) Negative Urine Ketones 1+ H Urine Blood 1+ H Urine Nitrite Negative Urine Bilirubin Negative Urine Urobilinogen Negative Ur Leukocyte Esterase Trace H Urine WBC (Auto) 10-30 H Urine RBC (Auto) 0-4 U Hyaline Cast (Auto) 5-10 H U Epithel Cells (Auto) >30 H Urine Bacteria (Auto) 1+ H Urine Mucus Present A SARS-CoV-2, RNA, NAAT NEGATIVE 09/23/22 09/23/22 05:54 05:54 WBC 10.12 RBC 3.53 L Hgb 11.3 L Hct 33.2 L MCV 94.1 MCH 32.0 MCHC 34.0 RDW Std Deviation 47.6 H RDW Coeff of Geoff 13.8 Plt Count 183 MPV 10.1 Immature Gran % (Auto) 0.5 Neut % (Auto) 88.2 Lymph % (Auto) 5.4 [place] % (Auto) 5.8 Eos % (Auto) 0.0 Baso % (Auto) 0.1 Neut # (Auto) 8.92 H Lymph # (Auto) 0.55 L [place] # (Auto) 0.59 Eos # (Auto) 0.00 Baso # (Auto) 0.01 Immature Gran # (Auto) 0.05 Sodium 135 L Potassium 3.8 Chloride 105 Carbon Dioxide 23 Anion Gap 7 BUN 8 Creatinine 0.71 Est Cr Clr Drug Dosing 119.2 Est GFR ( Amer) 114.3 Est GFR (Non-Af Amer) 98.6 BUN/Creatinine Ratio 11.3 Glucose 165 H Lactate Calcium 7.9 L Total Bilirubin AST ALT Alkaline Phosphatase Total Protein Albumin Globulin Albumin/Globulin Ratio Lipase HCG, Qual Urine Color Urine Appearance Urine pH Ur Specific [place] Urine Protein Urine Glucose (UA) Urine Ketones Urine Blood Urine Nitrite Urine Bilirubin Urine Urobilinogen Ur Leukocyte Esterase Urine WBC (Auto) Urine RBC (Auto) U Hyaline Cast (Auto) U Epithel Cells (Auto) Urine Bacteria (Auto) Urine Mucus SARS-CoV-2, RNA, NAAT PG Care Time/CCT Total # of Minutes Spent Total Time Spent with Patient: Total time spent is greater than 50% in coordination of care (as documented) at patient's floor/unit and/or counseling patient: Coding Level of Care Code None Diagnoses Status post laparoscopic appendectomy Z90.49
[2022-09-23] MEDS ORDERED: oxyCODONE HCL IR 5 MG TAB (IMMEDIATE RELEASE) PO PRN (08:43)
[2022-09-23] MEDS ORDERED: ACETAMINOPHEN 325 MG TAB PO PRN (08:45)
[2022-09-23] MEDS ORDERED: FLUTICASONE PROPIONATE NA SPR 16 GM BTL SCH (09:00)
[2022-09-23] MEDS ORDERED: LOSARTAN POTASSIUM 50 MG TAB PO SCH (09:00)
[2022-09-23] MEDS ORDERED: dilTIAZem HCL 180 MG CAPCR PO SCH (09:00)
[2022-09-23] MEDS: oxyCODONE HCL IR 5 MG TAB (IMMEDIATE RELEASE) PO PRN ×2 (09:36→10:51)
--- NOTE | 2022-09-23 20:21 | Discharge Summary ---
Date of Service September 23, 2022 Admission HPI Per Admitting Provider 52-year-old female presented to the emergency department for chief complaint of abdominal pain. Started with pain yesterday that was periumbilical, eventually migrated to the right lower quadrant. She has not had pain like this before. No prior colonoscopy. She has a history of gastric bypass and tubal ligation. Last ate at 0300 this morning. Single episode of paroxysmal A-fib in the past, not on anticoagulation. 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 Principal Diagnosis perforated acute appendicitis Discharge Exam awake/alert, no distress Respiratory normal respiratory effort Gastrointestinal (Abdomen) Inspection/Auscultation: + abdominal surgical incision (c/d/i with dermabond, no signs of infection) and + abdominal surgical drain present (serosangeneous); abdomen not distended Discharge Data Allergies Allergy/AdvReac Type Severity Reaction Status Date / Time No Known Allergies Allergy Unverified 04/12/22 12:02 Procedures Performed Operation Date: 09/22/22 18:45 Actual Procedures p Laparoscopic Appendectomy(Not Applicable) - Cal Clemens DO, FACS Ordered Studies 09/22/22 16:18 CT abd pelvis IV con only Stat Hospital Course (1) Perforated appendicitis: This is a 52yF who presented to the [facility] ED on 09/22/22 with abdominal pain. Workup in the ED showed a WBC of 12.[address] a/p concerning for acute appendicitis with possible perforation. The patient was tender to palpation in the RLQ. Patient made NPO with IVF and booked for the OR. On 6/ the patient went to the OR with Dr. Clemens for a laparoscopic appendectomy. The patient tolerated the procedure well, see operative report for full details. Post operatively the patient's diet was advanced, pain managed on prn meds, and incisions clean/dry/intact. She had a SHELBI drain in place that remained serosanguineous in nature. She was provided with education regarding SHELBI drain care. On POD#1 the patient was deemed stable for discharge to home with SHELBI drain in place. She was given a prescription for augmentin x7 days and asked to follow up with Dr. Clemens early next week. Total Time Total Time Spent Total Time Spent (In Minutes): 15 Discharge Plan Discharge Items Patient Disposition: Home - Self-Care Reason For Visit: APPY Discharge Diagnosis: laparoscopic appendectomy Activity: Per Instructions section Lifting: No more than 10 pounds Bathing Comment: may shower starting 09/24/22; no soaking in tubs/pools x 2 weeks Exercise/Sports: Wait until after follow-up appointment Driving/Machine Use: no driving while taking narcotics for pain Non-emergency contact: Surgeon Call non-emergency contact if: you have any medication questions, your pain is worsening, you have a fever, your temperature is above 101.5, your wound has increased redness, your wound has increased drainage and your wound pain has increased Follow-up/Referrals: Cal Clemens DO, FACS [Physician] - (Please call the office on Monday09/26/22 for an appointment to be seen for drain removal) Konstantin Scott MD [Primary Care Provider] - Diet: Regular Addtl Attending Provider Instructions: Please call the office on Monday09/26/22 for an appointment to be seen for drain removal Please care for your surgical drain as you have been instructed prior to discharge. Keep drain to bulb suction. Empty bulb 2-3x/daily and record output Pending Studies at Discharge: Yes Studies:: surgical pathology Stand-Alone Forms: [facility] [employer], [facility], [facility] [place] Cessation Medications and DC Order Prescriptions: New amoxicillin-pot clavulanate 875-125 mg tablet 1 tab PO BID Qty: 14 0RF oxycodone-acetaminophen [Percocet] 5-325 mg tablet 1 - 2 tab PO .q4-6h PRN (Reason: pain, for initial therapy, max 6 tabs per day) Qty: 15 0RF Continued cyanocobalamin (vitamin B-12) 1,000 mcg/mL solution 1,000 mcg IM .EVERY 3 MONTHS losartan 100 mg tablet 100 mg PO QAM fluticasone propionate 50 mcg/actuation spray,suspension 2 spray INTRANASAL DAILY albuterol sulfate 2.5 mg /3 mL (0.083 %) solution for nebulization 2.5 mg continuous nebulization Q4 PRN (Reason: Wheezing) alprazolam 0.25 mg tablet 0.25 mg PO BID PRN (Reason: Anxiety) hydrochlorothiazide 25 mg tablet 25 mg PO QAM albuterol sulfate 90 mcg/actuation HFA aerosol inhaler 2 puff INHALATION Q4 PRN (Reason: Wheezing) cetirizine [Zyrtec] 10 mg Tablet 10 mg PO DAILY calcium citrate 200 mg (950 mg) Tablet 200 mg PO BID Flintstones Complete Tablet,Chewable 1 tab PO DAILY acetaminophen 500 mg Tablet 500 mg PO Q6H PRN (Reason: pain,severe) diltiazem HCl 180 mg Capsule,Extended Release 24hr 180 mg PO QAM Qty: 30 0RF guaifenesin 200 mg Tablet 200 mg PO Q8H PRN (Reason: cough) Qty: 15 0RF Discharge Orders: Discharge Order (Routine); Ordered 09/23/22 Ordered By: Itzel Russo/Other Patient Handouts: Jose Barahona Drain Tube Dc Admission Data Admit Date/Time: 09/22/22 20:57 Attending Provider: Cal Clemens Admit Provider: Cal Clemens Primary Care Provider: Konstantin Scott Other Interventions: Discharge Summary Assessment (RN) Last Done: 09/23/22 16:02 Coding Level of Care Code 61891 IN/OBS DISCH 30 MIN/LESS Diagnoses Perforated appendicitis K35.32
== END 2022-09-23 16:53 | disposition home or self-care (01) | DRG 339 ==
LOC: ED 15:39 → OR 18:52 → 3N 20:57

== ENCOUNTER 2023-08-06 09:29 | Inpatient (IN) ==
--- OUTSIDE RECORDS SUMMARY | 2023-08-06 09:35 | External Medical Summary | Summary of Care ---
Author Name Unknown Organization [facility] Address [address] [facility] [address] Phone [phone] Care Team Providers Care Watermaster Name Role Phone Nata Banerjee MD Primary Care Provide r Reason for Visit * Reason Comments eRx-Medication Refill Encounter Details Date Type Department Care Team (Late st Contact Info) Description 02/12/2023 Refill Family Medicine [address] [place] [address] Nata Banerjee MD [address] [place] [address] [place] [address] HTN, goal below 130/80 Allergies No known active allergiesdocumented as of this encounter (statuses as of 02/13/2023) Medications Medication Sig Dispensed Refills Start Date End Date Status NEBULIZER COMPRESSOR MISC Use as directed 1 Each 1 04/12/2014 Active cetirizine (ZYRTEC) 10 MG Tablet Take 1 Tablet by mouth in the morning. 0 Active Pediatric Multivit-Minerals- C (FLINTSTONES COMPLETE) 60 MG chewable tablet Take 1 Tablet by mouth in the morning. 0 Active Calcium Citrate 950 MG TABS Take 1 Tab by mouth 2 times a day. 0 Active Triamcinolone Acetonide 0.1 % External Cream (ARISTOCORT)Indica tions:Other eczema Apply topically to affected area 2 times a day. To affected area. 30 g 2 01/21/2020 Active Nystatin 332122 UNIT/GM External CreamIndications:C utaneous candidiasis Apply topically to affected area 2 times a day. To affacted area for two weeks. 30 g 2 02/03/2020 Active Dulera 200-5 MCG/ACT Inhalation Aerosol (Mometasone Furo-Formoterol Fum)Indications:Mi ld persistent asthma with acute exacerbation Inhale 2 Puffs by mouth 2 times a day. 13 g 5 12/01/2020 Active Syringe 25G X 5/8" 3 ML Inject 1 ML of B12 solution IM every 90 days 4 Each 0 12/09/2020 Active Acetaminophen 500 MG Oral Tablet (Tylenol) Take 1 Tablet by mouth every 6 hours as needed for Pain, Severe. 30 Tablet 6 02/25/2021 Active Cyanocobalamin 1000 MCG/ML Injection Kit Inject into a large muscle 1,000 mcg every 3 months . 1 mL 3 02/11/2022 Active valACYclovir HCl 1 GM Oral Tablet (Valtrex)Indicatio ns:History of cold sores Take 2 Tablets by mouth in the morning and 2 Tablets before bedtime. For 1 day for cold sores. 4 Tablet 5 03/30/2022 Active ALPRAZolam 0.25 MG Oral Tablet (xaNAX)Indications :Anxiety state,Panic disorder TAKE 1 TABLET BY MOUTH TWICE A DAY NEEDED FOR ANXIETY 30 Tablet 0 05/11/2022 Active Losartan Potassium 100 MG Oral Tablet (Cozaar)Indication s:Hypertension goal BP (blood pressure) < 140/90 TAKE 1 TABLET BY MOUTH EVERY DAY IN THE MORNING 90 Tablet 0 11/14/2022 Active Albuterol Sulfate (2.5 MG/3ML) 0.083% Inhalation Nebulization Solution (Proventil)Indicat ions:Asthma, mild persistent GIVE 1 VIAL IN NEBULIZER EVERY 4 HOURS NEEDED FOR WHEEZING 375 mL 1 12/09/2022 Active Albuterol Sulfate HFA 108 (90 Base) MCG/ACT Inhalation Aerosol SolutionIndication s:Asthma, mild persistent INHALE TWO PUFFS BY MOUTH EVERY FOUR HOURS NEEDED FOR WHEEZING 18 g 2 12/16/2022 Active dilTIAZem HCl ER 180 MG Oral Capsule Extended Release 24 Hour TAKE 1 CAPSULE BY MOUTH EVERY DAY IN THE MORNING 90 Capsule 0 12/17/2022 Active Fluticasone Propionate 50 MCG/ACT Nasal Suspension (Flonase)Indicatio ns:Seasonal allergic rhinitis due to pollen SPRAY 2 SPRAYS INTO EACH NOSTRIL EVERY DAY 16 mL 2 02/06/2023 Active hydroCHLOROthiazid e 25 MG Oral Tablet (Hydrodiuril)Indic ations:HTN, goal below 130/80 TAKE 1 TABLET BY MOUTH EVERY DAY IN THE MORNING 90 Tablet 0 02/13/2023 Active hydroCHLOROthiazid e 25 MG Oral Tablet (Hydrodiuril)Indic ations:HTN, goal below 130/80 TAKE 1 TABLET BY MOUTH EVERY DAY IN THE MORNING 90 Tablet 0 11/14/2022 3 Discontinued documented as of this encounter (statuses as of 02/13/2023) Active Problems Problem Noted Date Diagnosed Date Cutaneous candidiasis 02/03/2020 Varicose veins of leg with complications 020 Intestinal postoperative nonabsorption 8 Localized edema 03/26/2018 Allergic rhinitis due to pollen 08/11/2015 Lumbar degenerative disc disease 08/11/2015 GERD (gastroesophageal reflux disease) 5 Low HDL (under 40) 01/22/2014 Asthma, mild persistent 12/14/2013 Anxiety state 09/26/2012 Panic disorder 09/26/2012 ADVANCE DIRECTIVE INFORMATION 06/17/2005 Overview: No, Advance Directive brochure offered , patient declined. Migraine headache with aura Diverticulosis documented as of this encounter (statuses as of 02/13/2023) Resolved Problems Problem Noted Date Diagnosed Date Resolved Date Body mass index (BMI) of 40. 0 to 44.9 in adult 05/21/2018 04/26/2019 Overview: Per Obesity protocol #1 - - Body mass index (BMI) of 45. 0 to 49.9 in adult 03/19/2018 05/24/2018 Overview: Per Obesity protocol #1 - Body mass index (BMI) of 50. 0 to 59.9 in adult 03/21/2017 03/23/2018 Overview: Per Obesity protocol #1 Morbid obesity 07/23/2014 03/23/2018 Overview: Per Obesity protocol #1 Allergic rhinitis 09/26/2012 08/11/2015 Normal , first 01/17/200208/09 Major depressive disorder Overview: ICD-10 update of inactive term Headache 07/23/2014 Overview: ICD-10 update of inactive term documented as of this encounter (statuses as of 02/13/2023) Immunizations Name Administration Dates Next Due DT - Diptheria/Tetanus (PEDS) 11/17/1977, 973 DTP Vaccine 01/30/1973, 2,1971,07/20 MMR - Measles/Mumps/Rubella Vaccine 11/09/2012 Measles Vaccine 06/24/1972 OPV - Polio Virus Vaccine (Oral) 11/17/1977,09/09,1971 PPD 11/28/2012,11/08/2012 Pneumococcal Polysaccharide PPV23 (Pneumovax) 01/22/2014 SEASONAL INFLUENZA, PF, 6 M & Above, IM , (FLULAVAL or FLUZONE) 01/07/2020,04/26/2019,02/05/2018,01/30 Seasonal Influenza, Quadriva lent, No Preserve, IM 03/15/2016,02/05/2015 Seasonal Influenza, Split, I IV3, With Preserve, Inj 12/14/2013,01/11/2013 TDAP (age 10 and older)(Boostrix) 10/22/2012 documented as of this encounter Social History Tobacco Use Types Packs/Day Years Used Date Smoking Tobacco: Never Smokeless Tobacco: Never Alcohol Use Standard Drinks/Week Comments No 0 (1 standard drink = 0.6 oz pur e alcohol) PHQ-2 Answer Date Recorded PHQ-2 Score 0 04/26/2019 Hunger Vital Sign Answer Date Recorded Within the past 12 months, y ou worried that your food would run out before you got the money to buy more. Never true 09/13/19 23 Within the past 12 months, t he food you bought just didn't last and you didn't have money to get more. Never true 09/12/2022 Sex and Gender Information Value Date Recorded Sex Assigned at Female 02/01/2021 9:34 AM EDT Gender Identity Female 02/01/2021 9:34 AM EDT Sexual Orientation Straight 02/01/2021 9: 34 AM EDT Job Start Date Occupation Industry Not on file Not on file Not on file documented as of this encounter Functional Status Functional Status Response Date of Assess ment Are you deaf or do you have serious difficulty h earing? No 02/23/2018 Are you blind or do you have serious difficulty seeing, even when wearing glasses? No 02/23/2018 Do you have serious difficul ty walking or climbing stairs? (5 years old or older) No 02/23/2018 Do you have difficulty dress ing or bathing? (5 years old or older) No 02/23/2018 Because of a physical, menta l, or emotional condition, do you have difficulty doing errands alone such as visiting a doctor s office or shopping? (15 years old or older) No 02/24/20 18 Cognitive Status Response Date of Assessm ent Because of a physical, menta l, or emotional condition, do you have serious difficulty concentrating, remembering, or making decisions? (5 years old or older No 02/23/2018 documented as of this encounter Miscellaneous Notes * Telephone Encounter - Lopez Jackson MD - 02/13/2023 2:38 PM ESTSigned Prescriptions: Disp Refills hydroCHLOROthiazide 25 MG Oral Tablet (Hyd*90 Tab*0 Sig: TAKE 1 TABLET BY MOUTH EVERY DAY IN THE MORNING Authorizing Provider: LOPEZ JACKSON * Telephone Encounter - Galileo Queen [facility] - 02/13/2023 2:16 PM ESTPending Prescriptions: Disp Refills hydroCHLOROthiazide 25 MG Oral Tablet [Pha*90 Tab*0 Sig: TAKE 1 TABLET BY MOUTH EVERY DAY IN THE MORNING * Telephone Encounter - Galileo Queen RPh - 02/13/2023 2:13 PM EST Unable to authorize medication refills for pended medication(s) at this time. Part of the protocol criteria used for refill authorization was not satisfied. Patient needs updated BMP per refill protocol. Please approve if appropriate. Thanks, Neil Queen, PharmD Clinical Pharmacist [facility] ([facility]) (Formerly Telepharmacy) [phone] 02/13/2023 2:14 PM documented in this encounter Plan of Treatment Upcoming Encounters Date Type Department Care Team (Late st Contact Info) Description 03/13/2023 8:45 AM EST Imaging Radiology [address] [place] [address] 03/31/2023 8:00 AM EST Office Visit Family Medicine [address] [place] [phone] Nata Banerjee MD [address] [place] [address] [place] [address] 03/31/2023 8:20 AM EST Laboratory Laboratory [address] [place] [phone] [facility] [address] [place] [address] Health Maintenance Due Date Last Done Comments HIV Screening 1986 Hepatitis C Screening 1989 Pneumococcal Vaccine: Pediatrics (0 to 5 Years) and At-Risk Patients (6 to 64 Years) (2 - PCV) 01/22/2015 01/22/2014 *SPIROMETRY ONCE FOR ASTHMA-ADULT 05/29/2016 Cologuard 2016 Colonoscopy 2016 Colorectal Cancer Screening 2016 Fecal Occult Blood Test 2016 Sigmoidoscopy 2016 Mammogram 03/22/2019 03/22/2018, 08/14/2015 Depression Screening 04/26/2020 04/26/2019 Zoster Vaccines (1 of 2) 2021 Lipid Panel 05/31/2022 05/31/2017, 01/18/2014 DTaP,Tdap,and Td Vaccines (7 - Td or Tdap) 10/22/2022 10/22/2012, 11/17/1977, 01/30/1973, Additional history exists Diabetes Screening 10/22/2022 10/23/2019, 1 04/27/2017, 02/25/2018, Additional history exists COVID-19 Vaccine (3 - season) 2022 06/10/2020, 05/20/2020 Influenza Vaccine (FLU shot) (#1) 2022 01/07/2020, 04/26/2019, 02/05/2018, Additional history exists Pap Smear 09/01/2025 09/01/2022, 05/2017, 02/09/2018, Additional history exists Cervical Cancer Screening 09/02/2027 HPV/Co-Test 09/02/2027 09/01/2022 GARDASIL-HPV IMMUNIZATION SERIES Aged Out No longer eligible based on patient's age to complete this topic MENINGOCOCCAL (MENACTRA/MENVEO) Aged Out No longer eligible based on patient's age to complete this topic documented as of this encounter Medical Devices Not on filedocumented as of this encounter Visit Diagnoses Diagnosis HTN, goal below 130/80 Unspecified essential hypertension documented in this encounter Advance Directives Latest Code Status on File Code Status Date Activated Date Inactivated Comments Full Code 02/23/2018 4:18 PM 02/25/2018 5:06 PM Thi s order reflects the patients wishes and were consensually agreed upon. Care Teams Watermaster Relationship Specialty Start Date End Date Nata Banerjee MD [address] [place] [address] [place] [address] PCP - General Family Medicine 05/20/22 documented as of this encounter
--- OUTSIDE RECORDS SUMMARY | 2023-08-06 09:35 | External Medical Summary | Summary of Care ---
Author Name Unknown Organization [facility] Address [address] [facility] [address] Phone [phone] Care Team Providers Care Phd Intern Name Role Phone Nata Banerjee MD Primary Care Provide r Reason for Visit * Reason Onset Date Comments Medication Refill 02/27/2023 Encounter Details Date Type Department Care Team (Late st Contact Info) Description 02/27/2023 Refill Family Medicine [address] [phone] Nata Banerjee MD [address] [place] [address] [place] [address] Moderate persistent asthma with exacerbation Allergies No known active allergiesdocumented as of this encounter (statuses as of 03/01/2023) Medications Medication Sig Dispensed Refills Start Date [...] area. 30 g 2 01/21/2020 Active Nystatin 083548 UNIT/GM External CreamIndications:C utaneous candidiasis Apply topically [...] THE MORNING 90 Tablet 0 02/13/2023 Active predniSONE 20 MG Oral Tablet (Deltasone)Indicat ions:Moderate persistent asthma with exacerbation Take 2 Tablets by mouth in the morning. 10 Tablet 0 03/01/2023 Active predniSONE 20 MG Oral Tablet (Deltasone)Indicat ions:Moderate persistent asthma with exacerbation Take 2 Tablets by mouth in the morning. 10 Tablet 0 02/23/2023 3 Discontinue d(Refill) documented as of this encounter (statuses as of 03/01/2023) Active Problems Problem Noted Date Diagnosed Date [...] as of this encounter (statuses as of 03/01/2023) Resolved Problems Problem Noted Date Diagnosed Date [...] as of this encounter (statuses as of 03/01/2023) Immunizations Name Administration Dates Next Due DT [...] or making decisions? (5 years old or older) No 02/23/2018 documented as of this encounter Miscellaneous Notes * Telephone Encounter - Nata Banerjee MD - 03/01/2023 8:58 AM EST Signed Prescriptions: Disp Refills predniSONE 20 MG Oral Tablet (Deltasone) 10 Tab*0 Sig: Take 2 Tablets by mouth in the morning. Authorizing Provider: NATA BANERJEE * Telephone Encounter - Vanessa Lima [facility] - 02/28/2023 10:50 AM ESTPending Prescriptions: Disp Refills predniSONE 20 MG Oral Tablet (Deltasone) 10 Tab*0 Sig: Take 2 Tablets by mouth in the morning. * Telephone Encounter - Vanessa Lima RPh - 02/28/2023 10:49 AM EST Refill pharmacists currently not authorized to approve refills for this class of medication per refill protocol. Please review patient's comment. Please approve if appropriate. Pending Prescriptions: Disp Refills predniSONE 20 MG Oral Tablet (Deltasone) 10 Tab*0 Sig: Take 2 Tablets by mouth in the morning. 12/09/2022 (in office), Visit date not found (telemedicine) 03/31/2023 If no future appointments scheduled, and last appointment is greater than a year ago, please schedule patient for a follow-up appointment Last date the medication was ordered: 02/23/23 Pharmacy: [id number] [id number] [facility] Is this request for a controlled substance? no Urine Drug Screen:No results found for this or any previous visit. Patient Phone Numbers Labs: Lab Results Component Value Date/Time CREAT 0.8 10/23/2019 11:13 AM POTASSIUM 4.5 10/23/2019 11:13 AM TSH 2.22 10/31/2017 02:48 PM LDLCALC 123 05/31/2017 09:58 AM ALT 15 05/31/2017 09:58 AM HGBA1C 5.4 02/02/2018 01:08 PM documented in this encounter Plan of Treatment Upcoming Encounters Date Type Department Care Team (Late st Contact Info) Description 03/13/2023 8:45 AM EST Imaging Radiology [address] [place] [address] 03/31/2023 8:00 AM EST Office Visit Family Medicine [address] [place] [phone] Nata Banerjee MD [address] [place] [address] [place] [address] 03/31/2023 8:20 AM EST Laboratory Laboratory [address] [place] [address] [facility] [address] [place] [address] Health Maintenance Due Date Last Done Comments [...] Additional history exists Pap Smear 09/01/2025 09/01/2022, 110 05/2017, 02/09/2018, Additional history exists Cervical Cancer Screening 09/02/2027 HPV/Co-Test 09/02/2027 09/01/2022 GARDASIL-HPV IMMUNIZATION SERIES Aged Out No longer eligible based on patient's age to complete this topic MENINGOCOCCAL (MENACTRA/MENVEO) Aged Out No longer eligible based on patient's age to complete this topic documented as of this encounter Medical Devices Not on filedocumented as of this encounter Visit Diagnoses Diagnosis Moderate persistent asthma with exacerbation Unspecified asthma, with exacerbation documented in this encounter Advance Directives Latest Code Status on File Code Status Date Activated Date Inactivated Comments Full Code 02/23/2018 4:18 PM 02/25/2018 5:06 PM Thi s order reflects the patients wishes and were consensually agreed upon. Care Teams Phd Intern Relationship Specialty Start Date End Date Nata Banerjee MD [address] [place] [address] [place] [id number] PCP - General Family Medicine 05/20/22 documented as of this encounter
--- OUTSIDE RECORDS SUMMARY | 2023-08-06 09:35 | External Medical Summary | Summary of Care ---
Author Name Unknown Organization [facility] Address [address] [facility] [address] Phone [phone] Care Team Providers Care Aeronautical Project Engineer Name Role Phone Nata Banerjee MD Primary Care Provide r Reason for Visit * Reason Onset Date Comments Health Maintenance 02/10/2023 Encounter Details Date Type Department Care Team (Late st Contact Info) Description 02/10/2023 Telephone Family Medicine [address] [phone] Nata Banerjee MD [address] [place] [address] [place] [address] Health Maintenance Allergies No known active allergiesdocumented as of this encounter (statuses as of 02/10/2023) Medications Medication Sig Dispensed Refills Start Date End Date Status NEBULIZER COMPRESSOR MISC Use as directed 1 Each 1 04/12/2014 Active cetirizine (ZYRTEC) 10 MG Tablet Take 1 Tablet by mouth in the morning. 0 Active Pediatric Eewnokcq-Xigqnuwz-Q (FLINTSTONES COMPLETE) 60 MG chewable tablet Take 1 Tablet by mouth in the morning. 0 Active Calcium Citrate 950 MG TABS Take 1 Tab by mouth 2 times a day. 0 Active Triamcinolone Acetonide 0.1 % External Cream (ARISTOCORT)Indicati ons:Other eczema Apply topically to affected area 2 times a day. To affected area. 30 g 2 01/21/2020 Active Nystatin 056425 UNIT/GM External CreamIndications:Cut aneous candidiasis Apply topically to affected area 2 times a day. To affacted area for two weeks. 30 g 2 02/03/2020 Active Dulera 200-5 MCG/ACT Inhalation Aerosol (Mometasone Furo-Formoterol Fum)Indications:Mild persistent asthma with acute exacerbation Inhale 2 [...] Active valACYclovir HCl 1 GM Oral Tablet (Valtrex)Indications :History of cold sores Take 2 Tablets by mouth in the morning and 2 Tablets before bedtime. For 1 day for cold sores. 4 Tablet 5 03/30/2022 Active ALPRAZolam 0.25 MG Oral Tablet (xaNAX)Indications:A nxiety state,Panic disorder TAKE 1 TABLET BY MOUTH TWICE A DAY NEEDED FOR ANXIETY 30 Tablet 0 05/11/2022 Active Losartan Potassium 100 MG Oral Tablet (Cozaar)Indications: Hypertension goal BP (blood pressure) < 140/90 TAKE 1 TABLET BY MOUTH EVERY DAY IN THE MORNING 90 Tablet 0 11/14/2022 Active hydroCHLOROthiazide 25 MG Oral Tablet (Hydrodiuril)Indicat ions:HTN, goal below 130/80 TAKE 1 TABLET BY MOUTH EVERY DAY IN THE MORNING 90 Tablet 0 11/14/2022 Active Albuterol Sulfate (2.5 MG/3ML) 0.083% Inhalation Nebulization Solution (Proventil)Indicatio ns:Asthma, mild persistent GIVE 1 VIAL IN NEBULIZER EVERY 4 HOURS NEEDED FOR WHEEZING 375 mL 1 12/09/2022 Active Albuterol Sulfate HFA 108 (90 Base) MCG/ACT Inhalation Aerosol SolutionIndications: Asthma, mild persistent INHALE TWO PUFFS BY MOUTH EVERY FOUR HOURS NEEDED FOR WHEEZING 18 g 2 12/16/2022 Active dilTIAZem HCl ER 180 MG Oral Capsule Extended Release 24 Hour TAKE 1 CAPSULE BY MOUTH EVERY DAY IN THE MORNING 90 Capsule 0 12/17/2022 Active Fluticasone Propionate 50 MCG/ACT Nasal Suspension (Flonase)Indications :Seasonal allergic rhinitis due to pollen SPRAY 2 SPRAYS INTO EACH NOSTRIL EVERY DAY 16 mL 2 02/06/2023 Active documented as of this encounter (statuses as of 02/10/2023) Active Problems Problem Noted Date Diagnosed Date [...] as of this encounter (statuses as of 02/10/2023) Resolved Problems Problem Noted Date Diagnosed Date [...] as of this encounter (statuses as of 02/10/2023) Immunizations Name Administration Dates Next Due DT [...] drink = 0.6 oz pur e alcohol) Hunger Vital Sign Answer Date Recorded Within [...] encounter Miscellaneous Notes * Telephone Encounter - Елена Peralta LPN - 02/10/2023 10:04 AM EDT Care Gaps Comprehensive Care Outreach Last Office/Telemedicine Visit: 12/09/2022 (in office), Visit date not found (telemedicine) Next Office Visit: Visit date not found Hemoglobin AIC Results: Lab Results Component Value Date/Time HEMOGLOBIN A1C - [facility] 5.4 02/02/2018 01:08 PM HEMOGLOBIN A1C - [facility] 5.2 05/31/2017 09:58 AM Reviewed Health Maintenance below: Health Maintenance Topic Date Due HIV Screening Never done Hepatitis C Screening Never done Pneumococcal Vaccine: Pediatrics (0 to 5 Years) and At-Risk Patients (6 to 64 Years) (2 - PCV) 01/22/2015 *SPIROMETRY ONCE FOR ASTHMA-ADULT Never done Colorectal Cancer Screening Never done Mammogram 03/22/2019 Depression Screening 04/26/2020 Zoster Vaccines (1 of 2) Never done Lipid Panel 05/31/2022 Diabetes Screening 10/22/2022 DTaP,Tdap,and Td Vaccines (7 - Td or Tdap) 10/22/2022 Influenza Vaccine (FLU shot) (1) 12/09/2022 Ov scheduled Mamm scheduled Labs ordered and scheduled Care Gap Outreach Action Taken: Spoke to patient documented in this encounter Plan of Treatment Upcoming Encounters Date Type Department Care Team (Late st Contact Info) Description 03/13/2023 8:45 AM EST Imaging Radiology [address] [place] [address] 03/31/2023 8:00 AM EST Office Visit Family Medicine [address] [place] [phone] Nata Banerjee MD [address] [place] [address] [place] [address] 03/31/2023 8:20 AM EST Laboratory Laboratory [address] [place] [phone] [place] [address] [place] [address] Scheduled Orders Name Type Priority Associated Diagnoses Orde r Schedule MAMMOGRAM SCREENING BILATERAL Medical Imaging Routine Encounter for screening mammogram for malignant neoplasm of breast Expected: 02/10/2023, Expires: 03/12/2024 LIPID PANEL WITH DIRECT LDL IF TG IS HIGH Lab Routine Screening for lipid disorders Expected: 02/10/2023, Expires: 02/11/2024 GLUCOSE Lab Routine Diabetes mellitus screening Expected: 02/10/2023, Expires: 02/11/2024 Health Maintenance Due Date Last Done Comments [...] 02/25/2018, Additional history exists COVID-19 Vaccine (3 season) 2022 06/10/2020, 05/20/2020 Influenza Vaccine (FLU [...] as of this encounter Visit Diagnoses Diagnosis Encounter for screening mammogram for malignant neoplasm of breast- Primary Other screening mammogram Diabetes mellitus screening Screening for diabetes mellitus Screening for lipid disorders documented in this encounter Advance Directives Latest Code Status on File Code Status Date Activated Date Inactivated Comments Full Code 02/23/2018 4:18 PM 02/25/2018 5:06 PM Thi s order reflects the patients wishes and were consensually agreed upon. Care Teams Aeronautical Project Engineer Relationship Specialty Start Date End Date Nata Banerjee MD [address] [place] [address] [place] [address] PCP - General Family Medicine 05/20/22 documented as of this encounter
--- OUTSIDE RECORDS SUMMARY | 2023-08-06 09:35 | External Medical Summary | Summary of Care ---
Author Name Unknown Organization [facility] Address [address] [facility] [place] [address] Phone [phone] Care Team Providers Care Precision Jig Grinder Name Role Phone Nata Banerjee MD Primary Care Provide r Reason for Visit * Reason Comments eRx-Medication Refill Encounter Details Date Type Department Care Team (Late st Contact Info) Description 09/12/2022 Refill Family Medicine [address] [place] [address] Konstantin Scott MD [address] [place] [address] [place] [address] Allergies No known active allergiesdocumented as of this encounter (statuses as of 02/15/2023) Medications Medication Sig Dispensed Refills Start Date End Date Status NEBULIZER COMPRESSOR MISC Use as directed 1 Each 1 5 Active cetirizine (ZYRTEC) 10 MG Tablet Take 1 Tablet by mouth in the morning. 0 Active Pediatric Multivit-Minerals -C (FLINTSTONES COMPLETE) 60 MG chewable tablet Take 1 Tablet by mouth in the morning. 0 Active Calcium Citrate 950 MG TABS Take 1 Tab by mouth 2 times a day. 0 Active Triamcinolone Acetonide 0.1 % External Cream (ARISTOCORT)Indic ations:Other eczema Apply topically to affected area 2 times a day. To affected area. 30 g 2 0 Active Nystatin 404243 UNIT/GM External CreamIndications: Cutaneous candidiasis Apply topically to affected area 2 times a day. To affacted area for two weeks. 30 g 2 0 Active Dulera 200-5 MCG/ACT Inhalation Aerosol (Mometasone Furo-Formoterol Fum)Indications:M ild persistent asthma with acute exacerbation Inhale 2 Puffs by mouth 2 times a day. 13 g 5 1 Active Syringe 25G X 5/8" 3 ML Inject 1 ML of B12 solution IM every 90 days 4 Each 0 1 Active Acetaminophen 500 MG Oral Tablet (Tylenol) Take 1 Tablet by mouth every 6 hours as needed for Pain, Severe. 30 Tablet 6 1 Active Cyanocobalamin 1000 MCG/ML Injection Kit Inject into a large muscle 1,000 mcg every 3 months . 1 mL 3 2 Active valACYclovir HCl 1 GM Oral Tablet (Valtrex)Indicati ons:History of cold sores Take 2 Tablets by mouth in the morning and 2 Tablets before bedtime. For 1 day for cold sores. 4 Tablet 5 2 Active ALPRAZolam 0.25 MG Oral Tablet (xaNAX)Indication s:Anxiety state,Panic disorder TAKE 1 TABLET BY MOUTH TWICE A DAY NEEDED FOR ANXIETY 30 Tablet 0 3 Active Albuterol Sulfate (2.5 MG/3ML) 0.083% Inhalation Nebulization Solution (Proventil)Indica tions:Asthma, mild persistent GIVE 1 VIAL IN NEBULIZER EVERY 4 HOURS NEEDED FOR WHEEZING 375 mL 1 2 12/10/19 23 Discontinued Albuterol Sulfate HFA 108 (90 Base) MCG/ACT Inhalation Aerosol SolutionIndicatio ns:Asthma, mild persistent INHALE TWO PUFFS BY MOUTH EVERY FOUR HOURS NEEDED FOR WHEEZING 18 g 0 3 12/16/19 23 Discontinued(Ref ill) Losartan Potassium 100 MG Oral Tablet (Cozaar)Indicatio ns:Hypertension goal BP (blood pressure) < 140/90 TAKE 1 TABLET BY MOUTH EVERY DAY IN THE MORNING 90 Tablet 0 3 11/15/19 23 Discontinued Dilt-XR 180 MG Oral Capsule Extended Release 24 Hour (dilTIAZem HCl ER) TAKE 1 CAPSULE BY MOUTH EVERY MORNING 30 Capsule 0 3 09/14/19 23 Discontinued hydroCHLOROthiazi de 25 MG Oral Tablet (Hydrodiuril)Zenia cations:HTN, goal below 130/80 TAKE 1 TABLET BY MOUTH EVERY DAY IN THE MORNING 90 Tablet 0 3 11/15/19 23 Discontinued(Ref ill) Fluticasone Propionate 50 MCG/ACT Nasal Suspension (Flonase)Indicati ons:Seasonal allergic rhinitis due to pollen SPRAY 2 SPRAYS INTO EACH NOSTRIL EVERY DAY 16 mL 2 3 11/12/19 23 Discontinued dilTIAZem HCl ER 180 MG Oral Capsule Extended Release 24 Hour TAKE 1 CAPSULE BY MOUTH EVERY DAY IN THE MORNING 90 Capsule 0 3 12/18/19 23 Discontinued documented as of this encounter (statuses as of 02/15/2023) Active Problems Problem Noted Date Diagnosed Date [...] as of this encounter (statuses as of 02/15/2023) Resolved Problems Problem Noted Date Diagnosed Date [...] as of this encounter (statuses as of 02/15/2023) Immunizations Name Administration Dates Next Due DT [...] encounter Miscellaneous Notes * Telephone Encounter - Adriana Montes employee relations director - 02/15/2023 4:38 PM EST Received message from [facility] regarding patient needing labs. Letter was sent out to patient to advise. Thank you, Adriana Montes Script Editor [facility] 02/15/2023,4:38 PM * Telephone Encounter - Dennys Benavides [facility] - 09/13/2022 7:43 AM EDTSigned Prescriptions: Disp Refills dilTIAZem HCl ER 180 MG Oral Capsule Exten*90 Cap*0 Sig: TAKE 1 CAPSULE BY MOUTH EVERY DAY IN THE MORNING Authorizing Provider: NATA BANERJEE Ordering User: DENNYS BENAVIDES * Telephone Encounter - Dennys Benavides [facility] - 09/13/2022 7:40 AM EDT Provided 90 days supply with 0 refill(s) until upcoming appointment. Per refill protocol patient should have BMP on file within past year. Reviewed AMP report, Care Gaps/Health Maintenance, medications list, and for any routine labs typically ordered for this patient. Lab orders placed. Please contact patient to advise of labs ordered for blood draw AND URINE specimen (patient will have to be able to void to provide sample). Recommend patient to fast if able for labs. Patient may still have water and regular medications. Advise to obtain labs before requesting the next refill. Thank You, Dennys Benavides, Pharm-D Clinical Pharmacist [facility] ([facility]) (Formerly Telepharmacy) [phone] 09/13/2022, 7:42 AM documented in this encounter Plan of Treatment Upcoming Encounters Date Type Department Care Team (Late st Contact Info) Description 03/13/2023 8:45 AM EST Imaging Radiology [address] [place] [address] 03/31/2023 8:00 AM EST Office Visit Family Medicine [address] [place] [phone] Nata Banerjee MD [address] [place] [address] [place] [address] 03/31/2023 8:20 AM EST Laboratory Laboratory [address] [place] [phone] [place] [address] Health Maintenance Due Date Last Done Comments [...] Not on filedocumented as of this encounter Advance Directives Latest Code Status on File Code Status Date Activated Date Inactivated Comments Full Code 02/23/2018 4:18 PM 02/25/2018 5:06 PM Thi s order reflects the patients wishes and were consensually agreed upon. Care Teams Precision Jig Grinder Relationship Specialty Start Date End Date Nata Banerjee MD [address] [place] [address] [place] [phone] PCP - General Family Medicine 05/20/22 documented as of this encounter
--- OUTSIDE RECORDS SUMMARY | 2023-08-06 09:35 | External Medical Summary | Summary of Care ---
Author Name Unknown Organization [facility] [address] [facility] [address] Phone [phone] Care Team Providers Care Grain Combiner Name Role Phone Nata Banerjee MD Primary Care Provide r Reason for Visit * Reason Comments eRx-Medication Refill Encounter Details Date Type Department Care Team (Late st Contact Info) Description 03/19/2023 Refill Family Medicine [address] [phone] Nata Banerjee MD [address] [place] [address] [place] [address] Encounter for long-term (current) use of medications*; Hypertension goal BP (blood pressure) < 140/90 Allergies No known active allergiesdocumented as of this encounter (statuses as of 03/22/2023) Medications Medication Sig Dispensed Refills Start Date [...] area. 30 g 2 01/21/2020 Active Nystatin 040472 UNIT/GM External CreamIndications:C utaneous candidiasis Apply topically [...] FOR ANXIETY 30 Tablet 0 05/11/2022 Active Albuterol Sulfate (2.5 MG/3ML) 0.083% Inhalation [...] the morning. 10 Tablet 0 03/01/2023 Active Losartan Potassium 100 MG Oral Tablet (Cozaar)Indication s:Hypertension goal BP (blood pressure) < 140/90 TAKE 1 TABLET BY MOUTH EVERY DAY IN THE MORNING 90 Tablet 0 03/22/2023 Active Losartan Potassium 100 MG Oral Tablet (Cozaar)Indication s:Hypertension goal BP (blood pressure) < 140/90 TAKE 1 TABLET BY MOUTH EVERY DAY IN THE MORNING 90 Tablet 0 11/14/2022 3 Discontinued documented as of this encounter (statuses as of 03/22/2023) Active Problems Problem Noted Date Diagnosed Date [...] as of this encounter (statuses as of 03/22/2023) Resolved Problems Problem Noted Date Diagnosed Date [...] as of this encounter (statuses as of 03/22/2023) Immunizations Name Administration Dates Next Due DT - Diptheria/Tetanus (PEDS) 11/17/1977, 973 DTP Vaccine 01/30/1973, 2,1971,07/20 MMR - Measles/Mumps/Rubella Vaccine 11/09/2012 Measles Vaccine 06/24/1972 OPV - Polio Virus Vaccine (Oral) 11/17/1977,09/09,1971 PPD 11/28/2012,11/08/2012 Pneumococcal Polysaccharide PPV23 (Pneumovax) 01/22/2014 Seasonal Influenza, PF, 6 M & above, IM , (FluLaval or Fluzone) 01/07/2020,04/26/2019,02/05/2018,01/30 Seasonal Influenza, Quadriva lent, No Preserve, [...] Telephone Encounter - Nata Banerjee MD - 03/22/2023 9:09 AM EST Signed Prescriptions: Disp Refills Losartan Potassium 100 MG Oral Tablet (Coz*90 Tab*0 Sig: TAKE 1 TABLET BY MOUTH EVERY DAY IN THE MORNING Authorizing Provider: NATA BANERJEE * Telephone Encounter - Downs, Farhana, account receivable associate - 03/21/2023 12:04 PM EST Pending Prescriptions: Disp Refills Losartan Potassium 100 MG Oral Tablet (Coz*90 Tab*0 Sig: TAKE 1 TABLET BY MOUTH EVERY DAY IN THE MORNING * Telephone Encounter - Farhana Ramirez account receivable associate - 03/21/2023 12:04 PM EST Received message from [facility] regarding patient needing labs. Scheduled 03/31/23. Thank you, Farhana Ramirez [facility] Support Technician II [facility] ([facility]) (formerly Telepharmacy) 03/21/2023,12:04 PM * Telephone Encounter - Anders Varghese [facility] - 03/20/2023 9:30 AM EST Pending Prescriptions: Disp Refills Losartan Potassium 100 MG Oral Tablet (Coz*90 Tab*0 Sig: TAKE 1 TABLET BY MOUTH EVERY DAY IN THE MORNING * Telephone Encounter - Anders Varghese [facility] - 03/20/2023 9:28 AM EST Provided 0 days supply with 0 refill(s). Per refill protocol patient should have ROUTINE LABS(BMP LIPID CBC B12) on file within past year. Reviewed AMP report, Care Gaps/Health Maintenance, medications list, and for any routine labs typically ordered for this patient. Lab orders placed. Please contact patient to advise of labs ordered for blood draw. Recommend patient to fast if able for labs. Patient may still have water and regular medications. Advise to obtain labs before requesting the next refill. Thanks, Maria L KowalskiD Clinical Pharmacist [facility] ([facility]) (formerly Telepharmacy) [phone] 03/20/2023, 9:29 AM documented in this encounter Plan of Treatment Upcoming Encounters Date Type Department Care Team (Late st Contact Info) Description 03/31/2023 8:00 AM EST Office Visit Family Medicine [address] [place] [phone] Nata Banerjee MD [address] [place] [address] [place] [address] 03/31/2023 8:20 AM EST Laboratory Laboratory [address] [place] [address] [place], Lab [address] [place] [address] Scheduled Orders Name Type Priority Associated Diagnoses Orde r Schedule CBC Lab Routine Encounter for long-term (current) use of medications Expected: 03/27/2023 (Approximate), Expires: 03/20/2024 VITAMIN B12 Lab Routine Encounter for long-term (current) use of medications Expected: 03/27/2023 (Approximate), Expires: 03/20/2024 Health Maintenance Due Date Last Done Comments [...] 04/27/2017, 02/25/2018, Additional history exists COVID-19 Vaccine ( season) 2022 06/10/2020, 05/20/2020 Influenza Vaccine (FLU [...] this encounter Visit Diagnoses Diagnosis Encounter for long-term (current) use of medications- Primary Encounter for long-term (current) use of other medications Hypertension goal BP (blood pressure) < 140/90 Unspecified essential hypertension documented in this encounter Advance Directives Latest Code Status on File Code Status Date Activated Date Inactivated Comments Full Code 02/23/2018 4:18 PM 02/25/2018 5:06 PM Thi s order reflects the patients wishes and were consensually agreed upon. Care Teams Grain Combiner Relationship Specialty Start Date End Date Nata Banerjee MD [address] [place] [address] [place] [address] PCP - General Family Medicine 05/20/22 documented as of this encounter
--- OUTSIDE RECORDS SUMMARY | 2023-08-06 09:35 | External Medical Summary | Summary of Care ---
Author Name Unknown Organization [facility] Address [address] [facility] [address] Phone [phone] Care Team Providers Care Card Reader Name Role Phone Nata Banerjee MD Primary Care Provide r Reason for Visit * Reason Comments eRx-Medication Refill Encounter Details Date Type Department Care Team (Late st Contact Info) Description 06/21/2023 Refill Family Medicine [address] [place] [phone] Nata Banerjee MD [address] [place] [address] [place] [address] Hypertension goal BP (blood pressure) < 140/90 Allergies No known active allergiesdocumented as of this encounter (statuses as of 06/22/2023) Medications Medication Sig Dispensed Refills Start Date [...] area. 30 g 2 01/21/2020 Active Nystatin [id number] UNIT/GM External CreamIndications:C utaneous candidiasis Apply topically [...] months . 1 mL 3 02/11/2022 Active ALPRAZolam 0.25 MG Oral Tablet (xaNAX)Indications [...] the morning. 10 Tablet 0 03/01/2023 Active valACYclovir HCl 1 GM Oral Tablet (Valtrex)Indicatio ns:History of cold sores TAKE 2 TABLETS BY MOUTH IN THE MORNING AND 2 TABLETS BEFORE BEDTIME. FOR 1 DAY FOR COLD SORES. 4 Tablet 0 03/31/2023 Active Losartan Potassium 100 MG Oral Tablet (Cozaar)Indication s:Hypertension goal BP (blood pressure) < 140/90 TAKE 1 TABLET BY MOUTH EVERY DAY IN THE MORNING 90 Tablet 1 06/22/2023 Active Losartan Potassium 100 MG Oral Tablet (Cozaar)Indication s:Hypertension goal BP (blood pressure) < 140/90 TAKE 1 TABLET BY MOUTH EVERY DAY IN THE MORNING 90 Tablet 0 03/22/2023 4 Discontinued documented as of this encounter (statuses as of 06/22/2023) Active Problems Problem Noted Date Diagnosed Date [...] as of this encounter (statuses as of 06/22/2023) Resolved Problems Problem Noted Date Diagnosed Date [...] as of this encounter (statuses as of 06/22/2023) Immunizations Name Administration Dates Next Due DT [...] encounter Miscellaneous Notes * Telephone Encounter - Chip Chaudhry [facility] - 06/22/2023 4:52 PM EDT Signed Prescriptions: Disp Refills Losartan Potassium 100 MG Oral Tablet (Coz*90 Tab*1 Sig: TAKE 1TABLET BY MOUTH EVERY DAY IN THE MORNINGAuthorizing Provider: Elizabeth BANERJEE User: CHIP CHAUDHRY documented in this encounter Plan of Treatment Health Maintenance Due Date Last Done Comments HIV Screening 1986 Hepatitis C Screening 1989 Pneumococcal Vaccine: Pediatrics (0 to 5 Years) and At-Risk Patients (6 to 64 Years) (2 of 2 - PCV) 01/22/2015 01/22/2014 *SPIROMETRY ONCE FOR [...] as of this encounter Visit Diagnoses Diagnosis Hypertension goal BP (blood pressure) < 140/90 Unspecified essential hypertension documented in this encounter Advance Directives Latest Code Status on File Code Status Date Activated Date Inactivated Comments Full Code 02/23/2018 4:18 PM 02/25/2018 5:06 PM Thi s order reflects the patients wishes and were consensually agreed upon. Care Teams Card Reader Relationship Specialty Start Date End Date Nata Banerjee MD [address] [place] [address] [place] [id number] PCP - General Family Medicine 05/20/22 documented as of this encounter
--- OUTSIDE RECORDS SUMMARY | 2023-08-06 09:35 | External Medical Summary | Summary of Care ---
Author Name Unknown Organization [facility] Address [address] [address] Phone [phone] Care Team Providers Care Machine Burrer Name Role Phone Nata Banerjee MD Primary Care Provide r Reason for Visit * Reason Comments eRx-Medication Refill Encounter Details Date Type Department Care Team (Late st Contact Info) Description 03/30/2023 Refill Family Medicine [address] [place] [address] Lopez Ortez MD [address] [place] [address] [place] [id number] History of cold sores Allergies No known active allergiesdocumented as of this encounter (statuses as of 03/31/2023) Medications Medication Sig Dispensed Refills Start Date [...] area. 30 g 2 01/21/2020 Active Nystatin [id number] UNIT/GM External CreamIndications:C utaneous candidiasis Apply topically [...] THE MORNING 90 Tablet 0 03/22/2023 Active valACYclovir HCl 1 GM Oral Tablet (Valtrex)Indicatio ns:History of cold sores TAKE 2 TABLETS BY MOUTH IN THE MORNING AND 2 TABLETS BEFORE BEDTIME. FOR 1 DAY FOR COLD SORES. 4 Tablet 0 03/31/2023 Active valACYclovir HCl 1 GM Oral Tablet (Valtrex)Indicatio ns:History of cold sores Take 2 Tablets by mouth in the morning and 2 Tablets before bedtime. For 1 day for cold sores. 4 Tablet 5 03/30/2022 3 Discontinued documented as of this encounter (statuses as of 03/31/2023) Active Problems Problem Noted Date Diagnosed Date [...] as of this encounter (statuses as of 03/31/2023) Resolved Problems Problem Noted Date Diagnosed Date [...] as of this encounter (statuses as of 03/31/2023) Immunizations Name Administration Dates Next Due DT [...] Telephone Encounter - Nata Banerjee MD - 03/31/2023 1:09 PM EST Signed Prescriptions: Disp Refills valACYclovir HCl 1 GM Oral Tablet (Valtrex)4 Tabl*0 Sig: TAKE 2 TABLETS BY MOUTH IN THE MORNING AND 2 TABLETS BEFORE BEDTIME. FOR 1 DAY FOR COLD SORES. Authorizing Provider: NATA BANERJEE * Telephone Encounter - Farhana Ramirez PHARM Tech - 03/31/2023 12:44 PM EST Pending Prescriptions: Disp Refills valACYclovir HCl 1 GM Oral Tablet (Valtrex)4 Tabl*0 Sig: TAKE 2 TABLETS BY MOUTH IN THE MORNING AND 2 TABLETS BEFORE BEDTIME. FOR 1 DAY FOR COLD SORES. * Telephone Encounter - Farhana Ramirez PHARM Tech - 03/31/2023 12:44 PM EST Received message from [facility] regarding patient needing labs. Placed call to patient to advise. Unable to reach pt, as there was no answer and no VM available to leave message. Sent the patient a [employer] message to advise. Thank you, Farhana Raimrez [facility] Director Patient Accounting II [facility] ([facility]) (formerly Telepharmacy) 03/31/2023,12:44 PM * Telephone Encounter - Farhana Galdamez [facility] - 03/31/2023 12:42 PM ESTPending Prescriptions: Disp Refills valACYclovir HCl 1 GM Oral Tablet (Valtrex)4 Tabl*0 Sig: TAKE 2 TABLETS BY MOUTH IN THE MORNING AND 2 TABLETS BEFORE BEDTIME. FOR 1 DAY FOR COLD SORES. * Telephone Encounter - Farhana Galdamez [facility] - 03/31/2023 12:36 PM EST Rx last authorized by Dr. Ortez Pt also overdue for labs - ordered Please approve if continued use is appropriate. Lab appt for 03/31 was cancelled by pt. Unable to authorize medication refills for pended medication(s) at this time. Per refill protocol patient should have updated labs on file within past year. Reviewed AMP report, Care Gaps/Health Maintenance, medications list, and for any routine labs typically ordered for this patient. Lab orders placed. Please contact patient to advise of labs ordered for blood draw. Recommend patient to fast if able for labs. Patient may still have water and regular medications. Advise to obtain labs before requesting the next refill. After contacting patient, please forward request to Nata Banerjee MD. Thank you, Farhana Galdamez, PharmD Clinical Pharmacist [facility] ([facility]) 03/31/23 12:40 PM [phone] documented in this encounter Plan of Treatment Upcoming Encounters Date Type Department Care Team (Late st Contact Info) Description 05/02/2023 8:00 AM EST Office Visit Family Medicine [address] [place] [address] Nata Banerjee MD [address] [place] [address] [place] [id number] Health Maintenance Due Date Last Done Comments [...] as of this encounter Visit Diagnoses Diagnosis History of cold sores Personal history of other infectious and parasitic disease documented in this encounter Advance Directives Latest Code Status on File Code Status Date Activated Date Inactivated Comments Full Code 02/23/2018 4:18 PM 02/25/2018 5:06 PM Thi s order reflects the patients wishes and were consensually agreed upon. Care Teams Machine Burrer Relationship Specialty Start Date End Date Nata Banerjee MD [address] [place] [address] [place] [address] PCP - General Family Medicine 05/20/22 documented as of this encounter
--- NOTE | 2023-08-06 09:46 | Emergency Department Note ---
History of Present Illness General Chief Complaint: Shortness of Breath/Dyspnea Stated Complaint: DIFFICULTY BREATHING, ASTMA, ON PREDNISONE Time Seen by Provider: 08/06/23 09:40 History of Present Illness Provider complaint: "asthma attack", shortness of breath and wheezing Onset (ago): day(s) 5 Severity: worse than usual Context: none known Associated symptoms: dry cough Treatments Prior to Arrival: inhaled bronchodilator Patient reports no history of intubation or ICU admission for her asthma. Patient states she has been doing home nebulizer treatments and they have not been helping. She states she saw her PCP at [facility] was put on this prednisone taper but it is also not helping. Related Data Current Asthma Therapy: inhaled bronchodilator and recent oral steroid Home Medications Medication Instructions Recorded Confirmed Type albuterol sulfate 2.5 mg/3 mL 2.5 mg continuous nebulization Q4 04/12/22 08/06/23 History (0.083 %) solution for nebulization PRN Wheezing albuterol sulfate 90 mcg/actuation 2 puff inhalation Q4 PRN Wheezing 04/12/22 08/06/23 History aerosol inhaler alprazolam 0.25 mg tablet 0.25 mg PO BID PRN Anxiety 04/12/22 08/06/23 History calcium citrate 200 mg (950 mg) 200 mg PO BID 04/12/22 08/06/23 History tablet cetirizine 10 mg tablet (Zyrtec) 10 mg PO DAILY 04/12/22 08/06/23 History cyanocobalamin (vitamin B-12) 1,000 mcg IM .EVERY 3 MONTHS 04/12/22 08/06/23 History 1,000 mcg/mL injection solution fluticasone propionate 50 2 spray intranasal DAILY 04/12/22 08/06/23 History mcg/actuation nasal spray,suspension hydrochlorothiazide 25 mg tablet 25 mg PO QAM 04/12/22 08/06/23 History losartan 100 mg tablet 100 mg PO QAM 04/12/22 08/06/23 History pediatric multivitamin no.76 1 tab PO DAILY 04/12/22 08/06/23 History (Flintstones Complete chewable tablet) diltiazem HCl 180 mg 180 mg PO QAM #30 caps 04/14/22 08/06/23 Rx capsule,extended release 24 hr Dulera 2 puff inhalation BID 08/06/23 08/06/23 History Allergies Allergy/AdvReac Type Severity Reaction Status Date / Time No Known Allergies Allergy Unverified 10/03/22 11:32 Past Med/Surg History Medical History Obese Right lower quadrant abdominal pain Acute appendicitis with localized peritonitis New onset atrial fibrillation Hypertension Intestinal postoperative nonabsorption Migraine Lumbar degenerative disc disease Asthma Panic disorder Asthma Surgical History Status post laparoscopic appendectomy (09/22/22) Laparoscopic Appendectomy(Not Applicable) - Cal Clemens, DO, FACS History of gastric bypass H/O gastric bypass Delivery by section Family History Other Heart disease Social History Smoking Status: Never smoker Hx Alcohol Use: Yes Alcohol type: other Hx Substance Use: No Preferred Language: Sami Communication Ability: Effective Visual Impairment: Partially Limited Edge Sawyer Required: No Beliefs That Will Affect Care: None Current Living Situation: Family Current Living Situation Comment: Lives at home with daughter. Feels Safe at Home: Yes Assistive Devices: None Physical Exam Vital Signs Vital Signs - 24 hr 08/06/23 09:30 08/06/23 09:49 08/06/23 10:00 Temperature 36.5 C Temperature Source Temporal Artery Scan Pulse Rate 92 H 103 H 94 H Pulse Rate [Apical] Pulse Rate from SpO2 Sensor 105 H 94 H Pulse Rhythm Pulse Rhythm [Apical] Pulse Strength [Apical] Respiratory Rate 18 19 20 Respiratory Depth Respiratory Pattern Blood Pressure 149/99 H Blood Pressure [Right Arm] Blood Pressure Mean 115 Blood Pressure Mean [Right Arm] Pulse Oximetry 100 98 99 Oxygen Delivery Method Sepsis Recent Fever Within 48 Hours No Sepsis New/Unexplained Change in Mental Status N/A Sepsis Action Taken by Nursing No Action Required 08/06/23 10:08 08/06/23 10:08 08/06/23 10:09 Temperature Temperature Source Pulse Rate 96 H 93 H Pulse Rate [Apical] Pulse Rate from SpO2 Sensor Pulse Rhythm Regular Pulse Rhythm [Apical] Pulse Strength [Apical] Respiratory Rate 20 Respiratory Depth Respiratory Pattern Blood Pressure Blood Pressure [Right Arm] Blood Pressure Mean Blood Pressure Mean [Right Arm] Pulse Oximetry 93 93 Oxygen Delivery Method Room Air Room Air Sepsis Recent Fever Within 48 Hours Sepsis New/Unexplained Change in Mental Status Sepsis Action Taken by Nursing 08/06/23 10:39 08/06/23 10:47 08/06/23 11:00 Temperature Temperature Source Pulse Rate 95 H 100 H Pulse Rate [Apical] 103 H Pulse Rate from SpO2 Sensor 94 H 102 H Pulse Rhythm Pulse Rhythm [Apical] Regular Pulse Strength [Apical] Normal Respiratory Rate 14 20 16 Respiratory Depth Normal Respiratory Pattern Regular Blood Pressure Blood Pressure [Right Arm] 141/97 H Blood Pressure Mean Blood Pressure Mean [Right Arm] 111 Pulse Oximetry 99 99 100 Oxygen Delivery Method Room Air Sepsis Recent Fever Within 48 Hours Sepsis New/Unexplained Change in Mental Status Sepsis Action Taken by Nursing Physical Exam GENERAL: oriented to person, place, and time. appears well-developed and well- nourished. HENT: Exam performed. - Head: Normocephalic and atraumatic. EYES: Conjunctivae and EOM are normal. Right eye exhibits no discharge. Left eye exhibits no discharge. No scleral icterus. NECK: Normal range of motion. Neck supple. No JVD present. CV: Normal rate, regular rhythm, normal heart sounds and intact distal pulses. There is no peripheral edema. Palpable radial pulses bue. PULM/CHEST: Expiratory wheezes bilaterally. ABD: The abdomen is soft. There is no tenderness. NEURO: Motor and sensation grossly intact. SKIN: Skin is warm and dry. He is not diaphoretic. PSYCH: normal mood and affect. Behavior is normal. Judgment and thought content normal. Course Course 0940: The patient was evaluated in room C2. A complete history and physical exam was performed Cardiac monitoring: An order was placed for continuous cardiac monitoring. The monitor shows a rate of 90 with sinus rhythm interpreted by me 1145: Vital signs stable. Status post 2 DuoNeb's and Solu-Medrol patient still having a lot of expiratory wheezing states she feels no better. Labs and imaging within normal limits. Patient will be admitted for asthma exacerbation. Repeat DuoNeb will be ordered for the patient. Patient be admitted to the [facility] hospitalist team. Administered Medications Albuterol (Albut/Ipratrop 3mg/0.5mg Neb 3 Ml Vial) 3 ml NEB QIDR [facility]; Protocol Stop: 09/05/23 14:59 Last Admin: 08/06/23 15:08 Dose: 3 ml Documented By: AMANDA Magnesium Sulfate/Dextrose (Magnesium Sulfate / D5w) 1 gm in 100 mls @ 50 mls/hr IV Q2H ADRIAN Stop: 08/06/23 15:59 Last Admin: 08/06/23 14:23 Dose: 50 mls/hr Documented By: MARIA LUISA Infusion: 08/06/23 14:11 Dose: Infused Documented By: Admin: 08/06/23 12:13 Dose: 50 mls/hr Documented By: MARIA LUISA Umeclidinium Christopher (Umeclidinium Christopher 62.5mcg/Blister 7 Puffs/Inhaler) 1 puffs INH DAILY ADRIAN Stop: 09/05/23 13:14 Last Admin: 08/06/23 13:34 Dose: 1 puffs Documented By: MARIA LUISA Discontinued Medications Albuterol (Albut/Ipratrop 3mg/0.5mg Neb 3 Ml Vial) 3 ml NEB NOW STA; Protocol Stop: 08/06/23 09:46 Last Admin: 08/06/23 09:59 Dose: 3 ml Documented By: MARIA LUISA Albuterol (Albut/Ipratrop 3mg/0.5mg Neb 3 Ml Vial) 3 ml NEB NOW STA; Protocol Stop: 08/06/23 10:25 Last Admin: 08/06/23 10:43 Dose: 3 ml Documented By: MARIA LUISA Albuterol (Albut/Ipratrop 3mg/0.5mg Neb 3 Ml Vial) 3 ml NEB NOW STA; Protocol Stop: 08/06/23 11:45 Last Admin: 08/06/23 11:50 Dose: 3 ml Documented By: MARIA LUISA Lorazepam (Lorazepam 1 Mg/1 Ml Syr Ed Inj Use) 0.5 mg IV ONE STA Stop: 08/06/23 12:13 Last Admin: 08/06/23 12:17 Dose: 0.5 mg Documented By: MARIA LUISA Methylprednisolone (Methylprednisolone 125 Mg/2 Ml Vial) 125 mg IV NOW STA Stop: 08/06/23 09:46 Last Admin: 08/06/23 09:59 Dose: 125 mg Documented By: MARIA LUISA Medical Decision Making Laboratory Data Attestation: I reviewed the patient's lab results. 08/06/23 09:57 08/06/23 09:57 Lab Results 08/06/23 08/06/23 Range/Units 09:57 10:01 WBC 7.94 (4.8-10.8) K/ul RBC 4.01 L (4.20-5.40) M/uL Hgb 12.0 (12.0-16.0) g/dl Hct 38.0 (37.0-47.0) % MCV 94.8 (80.0-100.0) fL MCH 29.9 (25.0-34.0) pg MCHC 31.6 L (32.0-36.0) g/dL RDW Std Deviation 50.0 H (36.4-46.3) fL RDW Coeff of Geoff 14.2 (11.5-14.5) % Plt Count 262 (130-400) K/uL MPV 9.7 (9.4-12.4) fL Immature Gran % (Auto) 0.5 % Neut % (Auto) 71.0 % Lymph % (Auto) 21.7 % Grimes % (Auto) 6.4 % Eos % (Auto) 0.0 % Baso % (Auto) 0.4 % Neut # (Auto) 5.64 (1.40-6.50) K/uL Lymph # (Auto) 1.72 (1.20-3.40) K/uL Grimes # (Auto) 0.51 (0.11-0.59) K/uL Eos # (Auto) 0.00 (0.00-0.50) K/uL Baso # (Auto) 0.03 (0.00-0.20) K/uL Immature Gran # (Auto) 0.04 (0.01-0.20) K/uL VBG pH 7.40 (7.36-7.41) VBG pCO2 42 (38-50) mmHg VBG pO2 33 mmHg VBG HCO3 26 mmol/L VBG O2 Saturation < 60.0 % VBG Base Excess 1.0 mEq/L Sodium 141 (136-145) mmol/L Potassium 4.1 (3.5-5.1) mmol/L Chloride 106 (98-107) mmol/L Carbon Dioxide 25 (21-32) mmol/L Anion Gap 10 (3-11) BUN 17 (6-23) mg/dl Creatinine 0.75 (0.6-1.2) mg/dl Est Cr Clr Drug Dosing 111.6 ml/min Est GFR ( Amer) 106.2 ml/min Est GFR (Non-Af Amer) 91.6 ml/min BUN/Creatinine Ratio 22.7 H (10-20) Glucose 103 H (70-99(Fasting)) mg/dl Calcium 8.4 L (8.6-10.3) mg/dl SARS-CoV-2, RNA, NAAT NEGATIVE (NEGATIVE) Imaging Data Attestation: I personally reviewed and interpreted this imaging study as follows: My Impression: Chest x-ray negative. Airway clear. No pneumothorax. No consolidation. No cardiomegaly or cephalization.. No free air under the diaphragm. No fractures of the skeletal structures. Radiologist's Impression: Chest X-Ray 08/06/23 09:45 XR chest 2V PA/lateral HISTORY: Shortness of breath. COMPARISON: Chest 04/12/2022. FINDINGS: The lungs are clear. Cardiac silhouette is normal in size. No pleural effusions. No pneumothorax. IMPRESSION: No acute process. ACT 112: Negative or not required by law. Electronically signed by: Simon Jean-Baptiste M.D. 08/06/2023 11:09 AM ECG Data Attestation: I personally reviewed and interpreted this ECG as follows: Rate (beats per minute): 89 Rhythm: normal sinus Findings: no ST depression, no ST elevation or no prolonged QT MDM Narrative 0940: The patient was evaluated in room C2. A complete history and physical exam was performed Cardiac monitoring: An order was placed for continuous cardiac monitoring. The monitor shows a rate of 90 with sinus rhythm interpreted by me 1145: Vital signs stable. Status post 2 DuoNeb's and Solu-Medrol patient still having a lot of expiratory wheezing states she feels no better. Labs and imaging within normal limits. Patient will be admitted for asthma exacerbation. Repeat DuoNeb will be ordered for the patient. Patient be admitted to the [facility] Hospitalist team. Impression & Plan Asthma attack Discharge Plan Visit Data Chief Complaint: Shortness of Breath/Dyspnea Stated Complaint: DIFFICULTY BREATHING, ASTMA, ON PREDNISONE ED Provider: Srini Vera Discharge Problem: Asthma attack Patient Disposition: Admitted As Inpatient Discharge Instructions Interventions: ED Discharge Assessment Last Done: 08/06/23 14:02 Discharge Problem: Asthma attack Qualifiers: Asthma severity: moderate Asthma persistence: persistent Qualified Code(s): J 45.41 - Moderate persistent asthma with (acute) exacerbation
[2023-08-06] MEDS: methylPREDNISolone 125 MG/2 ML VIAL IV STA (09:59)
[2023-08-06] MEDS: ALBUT/IPRATROP 3MG/0.5MG NEB 3 ML VIAL NEB STA ×3 (09:59→11:50)
[2023-08-06 10:22] LABS: HCO3 VBG 26 mmol/L; Oxygen Saturation VBG < 60.0 %; PCO2 VBG 42 mmHg (38-50); PO2 VBG 33 mmHg
[2023-08-06 10:38] LABS: Basophils # (auto) 0.03 K/uL (0.00-0.20); Basophils % (auto) 0.4 %; Immature Granulocytes # (auto) 0.04 K/uL (0.01-0.20); Immature Granulocytes % (auto) 0.5 %; Lymphocytes # (auto) 1.72 K/uL (1.20-3.40); Lymphocytes % (auto) 21.7 %; Mean Corpuscular Hemoglobin 29.9 pg (25.0-34.0); Mean Corpuscular Hgb Conc 31.6 g/dL (32.0-36.0); Mean Corpuscular Volume 94.8 fL (80.0-100.0); Mean Platelet Volume 9.7 fL (9.4-12.4); Monocytes # (auto) 0.51 K/uL (0.11-0.59); Monocytes % (auto) 6.4 %; Neutrophils # (auto) 5.64 K/uL (1.40-6.50); Platelet Count 262 K/uL (130-400); RDW Coefficient of Variation 14.2 % (11.5-14.5); Red Blood Count 4.01 M/uL (4.20-5.40); White Blood Count 7.94 K/ul (4.8-10.8)
--- NOTE | 2023-08-06 10:53 | Electrocardiogram Report ---
Test Reason : Blood Pressure : / mmHG Vent. Rate : 089 BPM Atrial Rate : 089 BPM P-R Int : 118 ms QRS Dur : 082 ms QT Int : 354 ms P-R-T Axes : 048 017 007 degrees QTc Int : 430 ms Normal sinus rhythm Nonspecific T wave abnormality Abnormal ECG When compared with ECG of 22-SEP-2022 15:59, Questionable change in QRS axis T wave inversion now evident in Inferior leads T wave amplitude has increased in Lateral leads Confirmed by Alverto Mcclendon ([id number]) on 08/06/2023 10:53:06 AM Referred By: Confirmed By:Alverto Mcclendon
[2023-08-06 10:57] LABS: BUN Creatinine Ratio 22.7 (10-20); Calcium 8.4 mg/dl (8.6-10.3); Creatinine Clr Calc Pharmacy 111.6 ml/min; Est GFR (African American) 106.2 ml/min; Est GFR (Non-African American) 91.6 ml/min; Potassium 4.1 mmol/L (3.5-5.1)
--- NOTE | 2023-08-06 11:10 | XRay Report ---
XR chest 2V PA/lateral HISTORY: Shortness of breath. COMPARISON: Chest 04/12/2022. FINDINGS: The lungs are clear. Cardiac silhouette is normal in size. No pleural effusions. No pneumot horax. IMPRESSION: No acute process. ACT 112: Negative or not required by law. Electronically signed by: Simon Jean-Baptiste M.D. 08/06/2023 11:09 AM
[2023-08-06] MEDS ORDERED: LEVALBUTEROL 1.25MG/0.5ML NEB NEB PRN (11:58)
--- NOTE | 2023-08-06 12:07 | History & Physical Report ---
Date of Service August 06, 2023 Assessment & Plan (1) Asthma exacerbation: (2) Paroxysmal atrial fibrillation: (3) Hypertension: (4) Obese: Plan Ms. Pickens is a 53 year old woman with past medical history remarkable for hypertension, paroxysmal atrial fibrillation, obesity s/p gastric bypass (BMI 40) moderate persistent asthma (never followed by a planning technician) presented to [facility] due to asthma exacerbation. Patient with asthma exacerbation iso multiple reported triggers. #Acute asthma exacerbation #Seasonal Allergies Ongoing since Monday, reports progression of wheezing, no sputum, no infectious symptoms Never followed planning technician Eosinophils normal on diff Home regimen: Cetirizine, Dulera 200-5, Albuterol s/p IV methylpred 125 COVID negative, will obtain biofire -2g Mag IV now -Continue home inhaler, formulary equivalent (budesonide/formoterol equivalent) -Duonebs q4h debbie, levalbuterol prn q4 -IV methylpred 40 qam unless otherwise recommended by Pulm. #Sinus Tachycardia #History of Paroxysmal atrial fibrillation , newly observed in April 13, 2022 -Though to be secondary to asthma exacerbation previously ChadsVasc2 score of 2 based on gender and hypertension: decided with Cardiology no AC at this time Monitor on tele Ensure home Diltazem administered now (did not take this am) -Continue Diltazem 180mg daily #Hypertension Home regimen: Losartan 100mg daily, HCTZ 25mg, Dilatzem 180mg Resume #Obesity status post gastric bypass surgery 2018 Needs to be counseled prior to dispo #Chronic anxiety with panic disorder s/p IV 0.5 ativan 2/2 anxiety -Continue home BID prn Full Code Admit med/tele DVT lovenox Admission and Anticipated Discharge Date Admission Date: Time spent evaluating patient, direct bedside care, chart review, placing orders, interpretation of diagnostic studies, discussion with consultants, patient, and family members, as well as other required patient management activities is 60 minutes. History of Present Illness Primary Care Provider: Konstantin Scott MD Ms. Pickens is a 53 year old woman with past medical history remarkable for hypertension, paroxysmal atrial fibrillation, moderate persistent asthma (never followed by a planning technician) presented to [facility] due to asthma exacerbation. Patient states she has felt awful since Monday, citing allergies as a trigger. She reports that she started neb treatments around the clock, but subsequently was exposed to freshly cut grass and second hand smoke which seemed to exacerbate her wheezing. She was prescribed a prednisone taper of initially 40mg for 3 days and a 10mg reduction every three days there after--however, this does not seem to have worked. She states at baseline she uses her dulera inhaler as prescribed, but uses her rescue inhaler at least once daily. She denies ever following a planning technician. She was last hospitalized for atrial fibrillation after an exacerbation and found to be in atrial fibrillation, which was attributed to steroids at that time--further exacerbated by hypertension and lung condition. She denies chest pain, palpitations. She reports chest tightness and dyspnea, she feels wheezing marginally improved. Patient did not take bp medications this morning. Patient able to speak in full sentences, but dyspnea noted in between. In the ED, vitals were notable for BP of 140s- 150s, HR of 90-100s and O2 sat of mid-high 90s on room air CXR without consolidation/edema or acute process EKG sinus rhythm, obtained prior to multiple neb treatments ED interventions: IV Methylpred, duonebs Patient to be admitted to med/tele for further evaluation and management of asthma exacerbation Allergies Allergy/AdvReac Type Severity Reaction Status Date / Time No Known Allergies Allergy Unverified 10/03/22 11:32 Home Medications Medication Instructions Recorded Confirmed Type albuterol sulfate 2.5 mg/3 mL 2.5 mg continuous nebulization Q4 04/12/22 08/06/23 History (0.083 %) solution for nebulization PRN Wheezing albuterol sulfate 90 mcg/actuation 2 puff inhalation Q4 PRN Wheezing 04/12/22 08/06/23 History aerosol inhaler alprazolam 0.25 mg tablet 0.25 mg PO BID PRN Anxiety 04/12/22 08/06/23 History calcium citrate 200 mg (950 mg) 200 mg PO BID 04/12/22 08/06/23 History tablet cetirizine 10 mg tablet (Zyrtec) 10 mg PO DAILY 04/12/22 08/06/23 History cyanocobalamin (vitamin B-12) 1,000 mcg IM .EVERY 3 MONTHS 04/12/22 08/06/23 History 1,000 mcg/mL injection solution fluticasone propionate 50 2 spray intranasal DAILY 04/12/22 08/06/23 History mcg/actuation nasal spray,suspension hydrochlorothiazide 25 mg tablet 25 mg PO QAM 04/12/22 08/06/23 History losartan 100 mg tablet 100 mg PO QAM 04/12/22 08/06/23 History pediatric multivitamin no.76 1 tab PO DAILY 04/12/22 08/06/23 History (Flintstones Complete chewable tablet) diltiazem HCl 180 mg 180 mg PO QAM #30 caps 04/14/22 08/06/23 Rx capsule,extended release 24 hr Dulera 2 puff inhalation BID 08/06/23 08/06/23 History Past Med/Surg History Medical History Obese Right lower quadrant abdominal pain Acute appendicitis with localized peritonitis New onset atrial fibrillation Hypertension Intestinal postoperative nonabsorption Migraine Lumbar degenerative disc disease Asthma Panic disorder Asthma Surgical History Status post laparoscopic appendectomy (09/22/22) Laparoscopic Appendectomy(Not Applicable) - Cal Clemens DO, FACS History of gastric bypass H/O gastric bypass Delivery by section Family History Other Heart disease Social History Smoking Status: Never smoker Hx Alcohol Use: Yes Alcohol type: other Hx Substance Use: No Preferred Language: Liberian Communication Ability: Effective Visual Impairment: Partially Limited Embroidery Designer Required: No Beliefs That Will Affect Care: None Current Living Situation: Family Current Living Situation Comment: Lives at home with daughter. Feels Safe at Home: Yes Assistive Devices: None Review of Systems Review of Systems: Constitutional: (-) fever/chills, (-) recent loss of weight, (-) appetite changes, (-) night sweats. Head: (-) headache, (-) dizziness. Eye: (-) blurring of vision, (-) double vision, (-) redness. Ear: (-) hearing loss, (-) discharge, (-) vertigo Nose: (-) discharge, (-) bleeding, (-) congestion, + post nasal drip. Throat: (-) sore throat, (-) hoarseness of voice, (-) odynophagia. Cardiovascular: (-) chest pain, (-) palpitations, (-) syncope, (-) orthopnea, (- ) PND, (-) leg swelling. Respiratory: ++ shortness of breath, ++cough, ++ wheezing, (-) hemoptysis. Neuro: (-) weakness in extremities, (-) numbness, (-) tingling, (-) tremor. Gastrointestinal: (-) belly pain, (-) belly distension, (-) nausea, (-) vomiting, (-) diarrhea, (-) constipation, Genitourinary: (-) hematuria, (-) dysuria, (-) polyuria, (-) hesitancy, (-) frequency, (-) urinary incontinence. Musculoskeletal: (-) myalgia, (-) arthralgia. Skin: (-) rashes. Endocrine: (-) heat/cold intolerance. Psychiatry: (-) depression, (-) hallucination. Physical Exam Physical Exam: GENERAL APPEARANCE: AxOx4, mildly anxious on exam, noted conversational dyspnea, but able to complete sentence with breathlessness in between HEENT: NC, AT. MMM. EOMI, clear conjunctiva, oropharynx clear. NECK: Supple without lymphadenopathy. No stiffness or restricted ROM. HEART: tachycardic, regular LUNGS: poor air movement, no wheezing appreciated on exam--but sounds tight upon inhalation ABDOMEN: Soft, nontender, nondistended with good bowel sounds heard. EXTREMITIES: Without cyanosis, clubbing or edema. NEUROLOGICAL: Grossly nonfocal. Alert and oriented, moving all 4 extremities. CN not formally tested but appear grossly intact.\ Skin: Warm and dry without any rash. Results & Data Results & Data Vital Signs (Past 12 Hours) Vital Signs Temp Pulse Pulse Resp BP BP Pulse Ox 08/06/23 11:00 100 H 16 100 08/06/23 10:47 103 H 20 141/97 H 99 08/06/23 10:39 95 H 14 99 08/06/23 10:09 93 H 08/06/23 10:08 96 H 20 93 08/06/23 10:08 93 08/06/23 10:00 94 H 20 99 08/06/23 09:49 103 H 19 98 08/06/23 09:30 36.5 C 92 H 18 149/99 H 100 O2 Del Method 08/06/23 11:00 08/06/23 10:47 Room Air 08/06/23 10:39 08/06/23 10:09 08/06/23 10:08 Room Air 08/06/23 10:08 Room Air 08/06/23 10:00 08/06/23 09:49 08/06/23 09:30 Laboratory Results Short CBC 08/06/23 Range/Units 09:57 WBC 7.94 (4.8-10.8) K/ul Hgb 12.0 (12.0-16.0) g/dl Hct 38.0 (37.0-47.0) % Plt Count 262 (130-400) K/uL BMP 08/06/23 09:57 Sodium 141 Potassium 4.1 Chloride 106 Carbon Dioxide 25 BUN 17 Creatinine 0.75 Glucose 103 H Calcium 8.4 L Diagnostic Findings Chest X-Ray 08/06/23 09:45 XR chest 2V PA/lateral HISTORY: Shortness of breath. COMPARISON: Chest 04/12/2022. FINDINGS: The lungs are clear. Cardiac silhouette is normal in size. No pleural effusions. No pneumothorax. IMPRESSION: No acute process. ACT 112: Negative or not required by law. Electronically signed by: Simon Jean-Baptiste M.D. 08/06/2023 11:09 AM Medications Administered Home Medications Medication Instructions Recorded Confirmed Last Taken acetaminophen 500 mg tablet 500 mg PO Q6H PRN pain,severe 04/12/22 10/03/22 09/22/22 albuterol sulfate 2.5 mg/3 mL 2.5 mg continuous nebulization Q4 04/12/22 10/03/22 Unknown (0.083 %) solution for nebulization PRN Wheezing albuterol sulfate 90 mcg/actuation 2 puff inhalation Q4 PRN Wheezing 04/12/22 10/03/22 09/22/22 aerosol inhaler alprazolam 0.25 mg tablet 0.25 mg PO BID PRN Anxiety 04/12/22 10/03/22 Unknown calcium citrate 200 mg (950 mg) 200 mg PO BID 04/12/22 10/03/22 Unknown tablet cetirizine 10 mg tablet (Zyrtec) 10 mg PO DAILY 04/12/22 10/03/22 09/22/22 cyanocobalamin (vitamin B-12) 1,000 mcg IM .EVERY 3 MONTHS 04/12/22 10/03/22 Unknown 1,000 mcg/mL injection solution fluticasone propionate 50 2 spray intranasal DAILY 04/12/22 10/03/22 09/21/22 mcg/actuation nasal spray,suspension hydrochlorothiazide 25 mg tablet 25 mg PO QAM 04/12/22 10/03/22 09/21/22 losartan 100 mg tablet 100 mg PO QAM 04/12/22 10/03/22 09/21/22 pediatric multivitamin no.76 1 tab PO DAILY 04/12/22 10/03/22 09/21/22 (Flintstones Complete chewable tablet) diltiazem HCl 180 mg 180 mg PO QAM #30 caps 04/14/22 10/03/22 09/21/22 capsule,extended release 24 hr oxycodone-acetaminophen 5 mg-325 1 - 2 tab PO .q4-6h PRN pain, for 09/23/22 10/03/22 Unknown mg tablet (Percocet) initial therapy, max 6 tabs per day #15 tabs prednisone 10 mg tablet mg 08/06/23 Unknown Active Medications Generic Name Dose Route Start Last Admin Trade Name Freq PRN Reason Stop Dose Admin Magnesium Sulfate/Dextrose 1 gm in 100 mls @ 50 mls/hr 08/06/23 12:00 08/06/23 12:13 Magnesium Sulfate / D5w IV 08/06/23 15:59 50 mls/hr Q2H DEBBIE Administration Code Status & VTE Plan VTE Prophylaxis Plan VTE Prophylaxis will be ordered: Yes
[2023-08-06] MEDS: MAGNESIUM SULFATE / D5W 1 GM/100 ML BAG IV SCH (12:13)
[2023-08-06] MEDS: LORazepam 1 MG/1 ML SYR ED Inj Use IV STA (12:17)
--- NOTE | 2023-08-06 12:33 | Pulmonary Consultation ---
Date of Consultation August 06, 2023 Assessment & Plan (1) Asthma exacerbation: (2) Asthma: (3) Obese: Plan Chest x-ray 08/06/2023 personally reviewed: PA/lateral view, good inspiratory effort, bilateral costophrenic and cardiophrenic angles are clean, no clear lung infiltrate appreciated 08/06/2023: VBG 7.40/42/33 -- Asthma exacerbation Family history of asthma in daughter Does have atopy with seasonal allergies Lifetime non-smoker SARS CoV 19 negative Able to tolerate [id number] NSAIDs without any issues No history of nasal polyps Usually on Dulera at home along with albuterol Uses albuterol 2-3 times a week even when she is feeling well Absolute eosinophil count 250 on 12/12/2016 --History of gastric bypass Has gained approximately 40 pounds since then Plan: Add montelukast 10 mg on a daily basis to patient's regimen Add Incruse in the hospital as an outpatient at 1.25 MCG, 2 puffs on a daily basis Patient's dose of Dulera is unknown. Would recommend 200/5 mcg 2 puffs twice a day Mucinex with flutter valve while in the hospital RAST panel and IgE to be done in a.m. Will need CBC as an outpatient while she is off of steroids for at least 2 weeks to look at the 2 eosinophil count She might be a good candidate for Biologics Recommend outpatient polysomnography Please note the above document was generated using voice recognition software. It may contain grammatical, syntax or spelling errors.Any formal questions or concerns about the content, text or information contained within the body of this dictation should be directly addressed to the provider for clarification. History of Present Illness History of Present Illness 53-year-old female being admitted for shortness of breath and wheezing Past medical history: Hypertension, paroxysmal A-fib, s/p gastric bypass surgery Pulmonary consulted for asthma Patient was diagnosed with asthma in the 40s Last Monday patient went to urgent care as she was feeling short of breath and wheezing. She was given prednisone but it did not help her and that is how she ended up in the hospital At the time of examination patient was saturating 96-97 on room air. She was not any respiratory distress She usually uses Dulera inhaler 2 puffs twice a day on a regular basis. Still has to use the rescue inhaler 2-3 times a week No recent change in perfumes, detergent, no new plant. Does complain of chest tightness. Has a feeling that she has phlegm but she is not able to bring it up. Denies any hemoptysis. No dysuria, no diarrhea. No unusual headache, no blurry vision. Social history: Lifetime non-smoker, social alcohol, denies any illicit drug use. 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 Pets: Dog. Allergies: Seasonal Asthma: History of asthma in daughter Cancer: No history of lung cancer Allergies Allergy/AdvReac Type Severity Reaction Status Date / Time No Known Allergies Allergy Unverified 10/03/22 11:32 Home Medications Medication Instructions Recorded Confirmed Type albuterol sulfate 2.5 mg/3 mL 2.5 mg continuous nebulization Q4 04/12/22 08/06/23 History (0.083 %) solution for nebulization PRN Wheezing albuterol sulfate 90 mcg/actuation 2 puff inhalation Q4 PRN Wheezing 04/12/22 08/06/23 History aerosol inhaler alprazolam 0.25 mg tablet 0.25 mg PO BID PRN Anxiety 04/12/22 08/06/23 History calcium citrate 200 mg (950 mg) 200 mg PO BID 04/12/22 08/06/23 History tablet cetirizine 10 mg tablet (Zyrtec) 10 mg PO DAILY 04/12/22 08/06/23 History cyanocobalamin (vitamin B-12) 1,000 mcg IM .EVERY 3 MONTHS 04/12/22 08/06/23 History 1,000 mcg/mL injection solution fluticasone propionate 50 2 spray intranasal DAILY 04/12/22 08/06/23 History mcg/actuation nasal spray,suspension hydrochlorothiazide 25 mg tablet 25 mg PO QAM 04/12/22 08/06/23 History losartan 100 mg tablet 100 mg PO QAM 04/12/22 08/06/23 History pediatric multivitamin no.76 1 tab PO DAILY 04/12/22 08/06/23 History (Flintstones Complete chewable tablet) diltiazem HCl 180 mg 180 mg PO QAM #30 caps 04/14/22 08/06/23 Rx capsule,extended release 24 hr Dulera 2 puff inhalation BID 08/06/23 08/06/23 History Patient History Medical History Obese Right lower quadrant abdominal pain Acute appendicitis with localized peritonitis New onset atrial fibrillation Hypertension Intestinal postoperative nonabsorption Migraine Lumbar degenerative disc disease Asthma Panic disorder Asthma Surgical History Status post laparoscopic appendectomy (09/22/22) Laparoscopic Appendectomy(Not Applicable) - Cal Clemens, DO, FACS History of gastric bypass H/O gastric bypass Delivery by section Family History Other Heart disease Social History Smoking Status: Never smoker Hx Alcohol Use: Yes Alcohol type: other Hx Substance Use: No Preferred Language: Macedonian Communication Ability: Effective Visual Impairment: Partially Limited Ingredient Scaler Helper Required: No Beliefs That Will Affect Care: None Current Living Situation: Family Current Living Situation Comment: Lives at home with daughter. Feels Safe at Home: Yes Assistive Devices: None Review of Systems 2 Review of Systems: All systems reviewed & are unremarkable except as noted in HPI & below Physical Exam 2 Physical Exam: Constitutional: No acute distress HEENT: EOMI, PERRLA Respiratory system: Decreased air entry bilaterally, no rhonchi, no crackles, positive expiratory wheeze bilaterally more on the left side CVS: S1-S2 positive, no murmurs or gallops, tachycardia Abdomen: Soft, nontender, nondistended, positive bowel sounds x4, obese Extremities: +2 pulses bilaterally radialis/ dorsalis pedis, no cyanosis, no edema Neuro: Awake alert oriented x3 Psych: Normal mood and affect G/U: No Yoo Skin: no rashes, warm and dry Lymphatic: no cervical or axillary lymphadenopathy Results & Data Results & Data Vital Signs (Past 12 Hours) Vital Signs Temp Pulse Pulse Resp BP BP Pulse Ox 08/06/23 12:12 101 H 20 154/112 H 97 08/06/23 11:00 100 H 16 100 08/06/23 10:47 103 H 20 141/97 H 99 08/06/23 10:39 95 H 14 99 08/06/23 10:09 93 H 08/06/23 10:08 96 H 20 93 08/06/23 10:08 93 08/06/23 10:00 94 H 20 99 08/06/23 09:49 103 H 19 98 08/06/23 09:30 36.5 C 92 H 18 149/99 H 100 O2 Del Method 08/06/23 12:12 Room Air 08/06/23 11:00 08/06/23 10:47 Room Air 08/06/23 10:39 08/06/23 10:09 08/06/23 10:08 Room Air 08/06/23 10:08 Room Air 08/06/23 10:00 08/06/23 09:49 08/06/23 09:30 Laboratory Results 08/06/23 09:57 08/06/23 09:57 PG Care Time/CCT Total # of Minutes Spent Total Time Spent with Patient: Total time spent is greater than 50% in coordination of care (as documented) at patient's floor/unit and/or counseling patient: Coding Level of Care Code 79488 INT INP/OBS CARE 3/75MIN Diagnoses Asthma exacerbation J45.901 Asthma J45.909 Obese E66.9
[2023-08-06] MEDS: UMECLIDINIUM BROMIDE 62.5MCG/BLISTER 7 PUFFS/INHALER INH SCH (13:34)
[2023-08-06 13:50] LABS: Adenovirus PCR Not Detected (NotDetected); Bordetella parapertussis PCR Not Detected (NotDetected); Bordetella pertussis PCR Not Detected (NotDetected); Chlamydia pneumoniae PCR Not Detected (NotDetected); Coronavirus 229E PCR Not Detected (NotDetected); Coronavirus CoV-2 (COVID19)PCR Not Detected (NotDetected); Coronavirus HKU1 PCR Not Detected (NotDetected); Coronavirus NL63 PCR Not Detected (NotDetected); Coronavirus OC43PCR Not Detected (NotDetected); Human Metapneumovirus PCR Not Detected (NotDetected); Influenza A PCR Not Detected (NotDetected); Influenza B PCR Not Detected (NotDetected); Mycoplasma pneumoniae PCR Not Detected (NotDetected); Parainfluenza Virus 1 PCR Not Detected (NotDetected); Parainfluenza Virus 2 PCR Not Detected (NotDetected); Parainfluenza Virus 3 PCR Not Detected (NotDetected); Parainfluenza Virus 4 PCR Not Detected (NotDetected); Respiratory Syncytial VirusPCR Not Detected (NotDetected); Rhinovirus/Enterovirus PCR DETECTED (NotDetected)
[2023-08-06] MEDS ORDERED: POLYETHYLENE (MIRALAX) 17 GM PACK PO PRN (14:01)
[2023-08-06] MEDS ORDERED: MAGNESIUM HYDROXIDE SUSP 30 ML UDC PO PRN (14:01)
[2023-08-06] MEDS: ALBUT/IPRATROP 3MG/0.5MG NEB 3 ML VIAL NEB SCH (15:08)
[2023-08-06] MEDS: dilTIAZem HCL 180 MG CAPCR PO SCH (16:23)
[2023-08-06] MEDS: ENOXAPARIN INJ 40 MG/0.4 ML SYR SQ SCH (16:23)
[2023-08-06] MEDS: hydroCHLOROthiazide 25 MG TAB PO SCH (16:23)
[2023-08-06] MEDS: FORMOTEROL 20 MCG/2 ML VIAL INH SCH (19:06)
[2023-08-06] MEDS: BUDESONIDE 0.25 MG/2 ML VIAL (PULMICORT) NEB SCH (19:06)
[2023-08-06] MEDS: CALCIUM CITRATE 950 MG TAB PO SCH (20:00)
[2023-08-06] MEDS: MONTELUKAST SODIUM 10 MG TABLET PO SCH (20:55)
[2023-08-06] MEDS: guaiFENesin 600 MG TABCR PO SCH (20:55)
[2023-08-07] MEDS: methylPREDNISolone 40 MG in SYRINGE 0 ML IV SCH (08:28)
[2023-08-07] MEDS: CETIRIZINE HCL 10 MG TABLET PO SCH (08:28)
[2023-08-07] MEDS: LOSARTAN POTASSIUM 50 MG TAB PO SCH (08:28)
[2023-08-07] MEDS: FLUTICASONE PROPIONATE NA SPR 16 GM BTL NAE SCH (08:29)
[2023-08-07] MEDS ORDERED: methylPREDNISolone 125 MG/2 ML VIAL IV SCH (09:00)
[2023-08-07] MEDS ORDERED: FLUTICASONE/VILANTEROL 200/25MCG 14 PUFFS/INHALER INH SCH (09:00)
[2023-08-07] MEDS: ALPRAZolam 0.25 MG TABLET PO PRN (12:00)
--- NOTE | 2023-08-07 15:49 | Hospitalist Progress Note ---
Date of Service August 07, 2023 Assessment & Plan (1) Asthma exacerbation: (2) Paroxysmal atrial fibrillation: (3) Hypertension: (4) Obese: Plan Ms. Pickens is a 53 year old woman with past medical history remarkable for hypertension, paroxysmal atrial fibrillation, obesity s/p gastric bypass (BMI 40) moderate persistent asthma (never followed by a weed controller) presented to [facility] ED due to asthma exacerbation. Acute asthma exacerbation Seasonal Allergies Likely secondary to rhinovirus infection --CXR:The lungs are clear. Cardiac silhouette is normal in size. No pleural effusions. No pneumothorax. -- IgE immunoglobulin, RAST pending Continue nebs, IV Solu-Medrol Added montelukast Continue Incruse while hospitalized Appreciate pulmonology input Will need outpatient polysomnography Needs follow-up with pulmonology on discharge Saturating well on room air Sinus Tachycardia H/O Paroxysmal atrial fibrillation , newly observed in April 13, 2022 ChadsVasc2 score of 2: Decided with Cardiology no AC at this time Continue Diltazem 180mg daily Hypertension Continue losartan, HCTZ, diltiazem Monitor BP Obesity S/P Gastric bypass surgery 2018 BMI 38 Chronic anxiety with panic disorder Continue alprazolam PRN DVT Px: Lovenox SQ CODE STATUS Full code Admission and Anticipated Discharge Date Admission Date: August 06, 2023 Subjective Patient is seen and examined at bedside States having dyspnea on exertion, chest tightness and wheezing Also reports cough Denies any nausea, vomiting, abdominal pain No other complaints Saturating well on room air Review of Systems Review of Systems: All systems reviewed & are unremarkable except as noted in Subjective Physical Exam Physical Exam: Physical Exam: Vitals signs as noted above General Appearance:Obese, no apparent distress Head: normocephalic, Atraumatic Eyes: normal inspection, EOMI Neck: supple, Trachea midline Respiratory/Chest: Decreased breath sounds, B/L Wheezes, No accessory muscle use Cardiovascular: S1, S2, No murmur Abdomen/GI:Soft, Non tender, Bowel sounds present Extremities/Musculoskeletal:normal inspection, no edema Neurologic/Psych:AAOX3, grossly no focal neurological deficits Skin: normal color, warm Results & Data Results & Data Vital Signs (Past 12 Hours) Vital Signs Temp Pulse Pulse Resp BP Pulse Ox O2 Del Method 08/07/23 14:59 94 H 08/07/23 11:39 97 H 18 97 Room Air 08/07/23 11:20 36.7 C 88 16 123/83 94 Room Air 08/07/23 07:54 36.5 C 88 16 151/97 H 97 Room Air 08/07/23 07:35 104 H 08/07/23 07:33 Room Air 08/07/23 07:09 78 16 96 Room Air
[2023-08-08] MEDS: ALBUTEROL HFA 8 GM INHALER INH PRN (02:26)
[2023-08-08 07:18] LABS: Hematocrit (blood only) 38.9 % (37.0-47.0); Hemoglobin 12.9 g/dl (12.0-16.0); Mean Corpuscular Hemoglobin 30.7 pg (25.0-34.0); Mean Corpuscular Hgb Conc 33.2 g/dL (32.0-36.0); Mean Corpuscular Volume 92.6 fL (80.0-100.0); Mean Platelet Volume 9.8 fL (9.4-12.4); Platelet Count 319 K/uL (130-400); RDW Coefficient of Variation 14.1 % (11.5-14.5); RDW Standard Deviation 48.6 fL (36.4-46.3); White Blood Count 12.89 K/ul (4.8-10.8)
[2023-08-08 07:35] LABS: BUN Creatinine Ratio 27.1 (10-20); Calcium 8.7 mg/dl (8.6-10.3); Creatinine Clr Calc Pharmacy 118.5 ml/min; Est GFR (African American) 115.5 ml/min; Est GFR (Non-African American) 99.6 ml/min; Magnesium 2.1 mg/dl (1.7-2.4); Potassium 3.7 mmol/L (3.5-5.1)
[2023-08-08] MEDS: ACETAMINOPHEN 325 MG TAB PO PRN (08:38)
[2023-08-08] MEDS: LEVALBUTEROL 1.25MG/0.5ML NEB NEB SCH (13:00)
[2023-08-08 13:51] LABS: Alternaria Class 0; Alternaria IgE <0.10 kU/L; Ash (White) Class 0; Ash (White) IgE <0.10 kU/L; Asperg Fumig Class 0; Asperg Fumig IgE <0.10 kU/L; Bermuda Grass Class 0; Bermuda Grass IgE <0.10 kU/L; Birch Class 0; Birch IgE <0.10 kU/L; Cat Dander Class 0; Cat Dander IgE <0.10 kU/L; Cladosporium IgE <0.10 kU/L; Cladosporium her Class 0; Cockroach Allergen Class 0; Cockroach IgE Ab <0.10 kU/L; Cottonwood Class 0; Cottonwood IgE <0.10 kU/L; D. farinae Class 0; D. farinae IgE <0.10 kU/L; D. pteronyssinus Class 0; D. pteronyssinus IgE <0.10 kU/L; Dog Dander Class 0; Dog Dander IgE <0.10 kU/L; Elm Class 0; Elm IgE <0.10 kU/L; Immunoglobulin IgE 25 kU/L (<OR=114); Maple (Box Elder) IgE <0.10 kU/L; Maple Class 0; Mountain Cedar Class 0; Mountain Cedar IgE <0.10 kU/L; Mouse Urine Protein Class 0; Mouse Urine Protein IgE <0.10 kU/L; Mugwort (W6) IgE <0.10 kU/L; Mugwort Class 0; Oak-White Class 0; Oak-White IgE <0.10 kU/L; Penic Notatum Class 0; Penic Notatum IgE <0.10 kU/L; Rough Pigweed Class 0; Rough Pigweed IgE <0.10 kU/L; Sheep Sorrel Class 0; Sheep Sorrel IgE <0.10 kU/L; Short Ragweed Class 0; Short Ragweed IgE <0.10 kU/L; Sycamore Class 0; Sycamore IgE <0.10 kU/L; Timothy Class 0; Timothy IgE <0.10 kU/L; Walnut Tree Class 0; Walnut Tree IgE <0.10 kU/L; White Mulberry Class 0; White Mulberry IgE <0.10 kU/L
[2023-08-08] MEDS: LEVALBUTEROL 1.25 MG/3 ML NEB NEB SCH (15:41)
--- NOTE | 2023-08-08 16:16 | Hospitalist Progress Note ---
Date of Service August 08, 2023 Assessment & Plan (1) Asthma exacerbation: (2) Paroxysmal atrial fibrillation: (3) Hypertension: (4) Obese: Plan Ms. 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 Acute asthma exacerbation Seasonal Allergies Likely secondary to rhinovirus infection --CXR:The lungs are clear. Cardiac silhouette is normal in size. No pleural effusions. No pneumothorax. -- IgE immunoglobulin, RAST pending Continue nebs, IV Solu-Medrol Added montelukast Continue Incruse while hospitalized Appreciate pulmonology input Will need outpatient polysomnography Needs follow-up with pulmonology on discharge Saturating well on room air Increase Solu-Medrol to twice a day Continue current management Sinus Tachycardia H/O Paroxysmal atrial fibrillation , newly observed in April 13, 2022 ChadsVasc2 score of 2: Decided with Cardiology no AC at this time Continue Diltazem 180mg daily Hypertension Continue losartan, HCTZ, diltiazem Monitor BP Obesity S/P Gastric bypass surgery 2018 BMI 38 Chronic anxiety with panic disorder Continue alprazolam PRN DVT Px: Lovenox SQ CODE STATUS Full code Admission and Anticipated Discharge Date Admission Date: August 07, 2023 Subjective Patient is seen and examined at bedside Subjectively feels about the same as yesterday Still has dyspnea on exertion, chest tightness and wheezing Also reports some chest pain with cough Saturating well on room air Review of Systems Review of Systems: All systems reviewed & are unremarkable except as noted in Subjective Physical Exam Physical Exam: Physical Exam: Vitals signs as noted above General Appearance:Obese, no apparent distress Head: normocephalic, Atraumatic Eyes: normal inspection, EOMI Neck: supple, Trachea midline Respiratory/Chest: Decreased breath sounds, B/L Wheezes, No accessory muscle use Cardiovascular: S1, S2, No murmur Abdomen/GI:Soft, Non tender, Bowel sounds present Extremities/Musculoskeletal:normal inspection, no edema Neurologic/Psych:AAOX3, grossly no focal neurological deficits Skin: normal color, warm Results & Data Results & Data Vital Signs (Past 12 Hours) Vital Signs Temp Pulse Pulse Resp BP Pulse Ox O2 Del Method 08/08/23 15:41 92 H 20 96 Room Air 08/08/23 12:03 36.6 C 84 16 121/78 91 Room Air 08/08/23 11:19 91 H 18 95 Room Air 08/08/23 07:53 36.5 C 81 16 111/73 97 Room Air 08/08/23 07:09 76 08/08/23 06:58 85 16 98 Room Air Laboratory Results Short CBC 08/08/23 Range/Units 06:45 WBC 12.89 H (4.8-10.8) K/ul Hgb 12.9 (12.0-16.0) g/dl Hct 38.9 (37.0-47.0) % Plt Count 319 (130-400) K/uL BMP 08/08/23 06:45 Sodium 137 Potassium 3.7 Chloride 102 Carbon Dioxide 28 BUN 19 Creatinine 0.70 Glucose 74 Calcium 8.7
[2023-08-08] MEDS: methylPREDNISolone 40 MG in SYRINGE 0 ML IV SCH (20:47)
[2023-08-08] MEDS: guaiFENesin/DEXTROM SYRUP 200MG/20MG 10ML UDC PO PRN (22:43)
[2023-08-09 07:07] LABS: BUN Creatinine Ratio 32.9 (10-20); Calcium 8.9 mg/dl (8.6-10.3); Creatinine Clr Calc Pharmacy 117.3 ml/min; Est GFR (African American) 115.5 ml/min; Est GFR (Non-African American) 99.6 ml/min; Potassium 4.1 mmol/L (3.5-5.1)
--- NOTE | 2023-08-09 13:14 | Hospitalist Progress Note ---
Date of Service August 09, 2023 Assessment & Plan (1) Asthma exacerbation: (2) Paroxysmal atrial fibrillation: (3) Hypertension: (4) Obese: Plan Ms. 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 Acute asthma exacerbation Seasonal Allergies Likely secondary to rhinovirus infection --CXR:The lungs are clear. Cardiac silhouette is normal in size. No pleural effusions. No pneumothorax. -- IgE immunoglobulin: 25 -- RAST: Negative Continue nebs, IV Solu-Medrol Added montelukast Continue Incruse while hospitalized Appreciate pulmonology input Will need outpatient polysomnography Needs follow-up with pulmonology on discharge Saturating well on room air Clinically improved Plan to discharge on prednisone taper course Sinus Tachycardia H/O Paroxysmal atrial fibrillation , newly observed in April 13, 2022 ChadsVasc2 score of 2: Decided with Cardiology no AC at this time Continue Diltazem 180mg daily Hypertension Continue losartan, HCTZ, diltiazem Monitor BP Obesity S/P Gastric bypass surgery 2018 BMI 38 Chronic anxiety with panic disorder Continue alprazolam PRN DVT Px: Lovenox SQ CODE STATUS Full code Admission and Anticipated Discharge Date Admission Date: August 07, 2023 Subjective Patient is seen and examined at bedside States feeling a lot better today Chest tightness, wheezing resolved Dyspnea much improved Was able to ambulate without any issues Cough slightly productive No other complaints Saturating well on room air Prefer to be discharged home today Review of Systems Review of Systems: All systems reviewed & are unremarkable except as noted in Subjective Physical Exam Physical Exam: Physical Exam: Vitals signs as noted above General Appearance:Obese, no apparent distress Head: normocephalic, Atraumatic Eyes: normal inspection, EOMI Neck: supple, Trachea midline Respiratory/Chest: Decreased breath sounds, CTA, No accessory muscle use Cardiovascular: S1, S2, No murmur Abdomen/GI:Soft, Non tender, Bowel sounds present Extremities/Musculoskeletal:normal inspection, no edema Neurologic/Psych:AAOX3, grossly no focal neurological deficits Skin: normal color, warm Results & Data Results & Data Vital Signs (Past 12 Hours) Vital Signs Temp Pulse Pulse Resp BP Pulse Ox O2 Del Method 08/09/23 11:05 91 H 14 97 Room Air 08/09/23 08:00 36.6 C 83 16 117/77 96 Room Air 08/09/23 07:34 88 17 96 Room Air, Nasal Cannula 08/09/23 07:28 Room Air 08/09/23 07:00 94 H 08/09/23 01:23 Room Air Laboratory Results [facility] 08/09/23 06:24 Sodium 136 Potassium 4.1 Chloride 101 Carbon Dioxide 25 BUN 23 Creatinine 0.70 Glucose 128 H Calcium 8.9
--- NOTE | 2023-08-09 13:31 | Discharge Summary ---
Date of Service August 09, 2023 Admission HPI Per Admitting Provider Ms. 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 Patient states she has felt awful since Monday, citing allergies as a trigger. She reports that she started neb treatments around the clock, but subsequently was exposed to freshly cut grass and second hand smoke which seemed to exacerbate her wheezing. She was prescribed a prednisone taper of initially 40mg for 3 days and a 10mg reduction every three days there after--however, this does not seem to have worked. She states at baseline she uses her dulera inhaler as prescribed, but uses her rescue inhaler at least once daily. She denies ever following a relay shop supervisor. She was last hospitalized for atrial fibrillation after an exacerbation and found to be in atrial fibrillation, which was attributed to steroids at that time--further exacerbated by hypertension and lung condition. She denies chest pain, palpitations. She reports chest tightness and dyspnea, she feels wheezing marginally improved. Patient did not take bp medications this morning. Patient able to speak in full sentences, but dyspnea noted in between. In the ED, vitals were notable for BP of 140s- 150s, HR of 90-100s and O2 sat of mid-high 90s on room air CXR without consolidation/edema or acute process EKG sinus rhythm, obtained prior to multiple neb treatments ED interventions: IV Methylpred, duonebs Patient to be admitted to med/tele for further evaluation and management of asthma exacerbation Admission Exam Per Admitting Provider GENERAL APPEARANCE: AxOx4, mildly anxious on exam, noted conversational dyspnea, but able to complete sentence with breathlessness in between HEENT: NC, AT. MMM. EOMI, clear conjunctiva, oropharynx clear. NECK: Supple without lymphadenopathy. No stiffness or restricted ROM. HEART: tachycardic, regular LUNGS: poor air movement, no wheezing appreciated on exam--but sounds tight upon inhalation ABDOMEN: Soft, nontender, nondistended with good bowel sounds heard. EXTREMITIES: Without cyanosis, clubbing or edema. NEUROLOGICAL: Grossly nonfocal. Alert and oriented, moving all 4 extremities. CN not formally tested but appear grossly intact.\ Skin: Warm and dry without any rash. Principal Diagnosis Acute asthma exacerbation Rhinovirus infection Discharge Data Allergies Allergy/AdvReac Type Severity Reaction Status Date / Time No Known Allergies Allergy Unverified 10/03/22 11:32 Consultations 08/06/23 11:43 ED Decision to Admit Stat 08/06/23 12:21 Consult Pulmonology Routine Procedures Performed Laboratory Results WBC 12.89 K/ul (4.8-10.8) H 08/08/23 06:45 RBC 4.20 M/uL (4.20-5.40) 08/08/23 06:45 Hgb 12.9 g/dl (12.0-16.0) 08/08/23 06:45 Hct 38.9 % (37.0-47.0) 08/08/23 06:45 MCV 92.6 fL (80.0-100.0) 08/08/23 06:45 MCH 30.7 pg (25.0-34.0) 08/08/23 06:45 MCHC 33.2 g/dL (32.0-36.0) 08/08/23 06:45 RDW Std Deviation 48.6 fL (36.4-46.3) H 08/08/23 06:45 RDW Coeff of Geoff 14.1 % (11.5-14.5) 08/08/23 06:45 Plt Count 319 K/uL (130-400) 08/08/23 06:45 MPV 9.8 fL (9.4-12.4) 08/08/23 06:45 Immature Gran % (Auto) 0.5 % 08/06/23 09:57 Neut % (Auto) 71.0 % 08/06/23 09:57 Lymph % (Auto) 21.7 % 08/06/23 09:57 [place] % (Auto) 6.4 % 08/06/23 09:57 Eos % (Auto) 0.0 % 08/06/23 09:57 Baso % (Auto) 0.4 % 08/06/23 09:57 Neut # (Auto) 5.64 K/uL (1.40-6.50) 08/06/23 09:57 Lymph # (Auto) 1.72 K/uL (1.20-3.40) 08/06/23 09:57 [place] # (Auto) 0.51 K/uL (0.11-0.59) 08/06/23 09:57 Eos # (Auto) 0.00 K/uL (0.00-0.50) 08/06/23 09:57 Baso # (Auto) 0.03 K/uL (0.00-0.20) 08/06/23 09:57 Immature Gran # (Auto) 0.04 K/uL (0.01-0.20) 08/06/23 09:57 VBG pH 7.40 (7.36-7.41) 08/06/23 10:01 VBG pCO2 42 mmHg (38-50) 08/06/23 10:01 VBG pO2 33 mmHg 08/06/23 10:01 VBG HCO3 26 mmol/L 08/06/23 10:01 VBG O2 Saturation < 60.0 % 08/06/23 10:01 VBG Base Excess 1.0 mEq/L 08/06/23 10:01 Sodium 136 mmol/L (136-145) 08/09/23 06:24 Potassium 4.1 mmol/L (3.5-5.1) 08/09/23 06:24 Chloride 101 mmol/L (98-107) 08/09/23 06:24 Carbon Dioxide 25 mmol/L (21-32) 08/09/23 06:24 Anion Gap 10 (3-11) 08/09/23 06:24 BUN 23 mg/dl (6-23) 08/09/23 06:24 Creatinine 0.70 mg/dl (0.6-1.2) 08/09/23 06:24 Est Cr Clr Drug Dosing 117.3 ml/min 08/09/23 06:24 Est GFR ( Amer) 115.5 ml/min 08/09/23 06:24 Est GFR (Non-Af Amer) 99.6 ml/min 08/09/23 06:24 BUN/Creatinine Ratio 32.9 (10-20) H 08/09/23 06:24 Glucose 128 mg/dl (70-99(Fasting)) H 08/09/23 06:24 Calcium 8.9 mg/dl (8.6-10.3) 08/09/23 06:24 Magnesium 2.1 mg/dl (1.7-2.4) 08/08/23 06:45 A. tenuis Allergen IgE <0.10 kU/L 08/07/23 06:40 A. tenuis ASM Class 0 08/07/23 06:40 A.fumigatus Allerg IgE <0.10 kU/L 08/07/23 06:40 A. fumigatus ASM Class 0 08/07/23 06:40 C. herbarum Allergn IgE <0.10 kU/L 08/07/23 06:40 C. herbarum ASM Class 0 08/07/23 06:40 D. farinae Allrgen IgE <0.10 kU/L 08/07/23 06:40 D. farinae ASM Class 0 08/07/23 06:40 D. pteronyssinus IgE <0.10 kU/L 08/07/23 06:40 D. pteronyssinus ASM Cl 0 08/07/23 06:40 P. notatum Allerg IgE <0.10 kU/L 08/07/23 06:40 P, notatum ASM Class 0 08/07/23 06:40 [place] IgE Ab <0.10 kU/L 08/07/23 06:40 [place] ASM Class 0 08/07/23 06:40 [place] IgE Ab <0.10 kU/L 08/07/23 06:40 [place] ASM Class 0 08/07/23 06:40 Elm Tree Allergen IgE <0.10 kU/L 08/07/23 06:40 [place]m Tree ASM Class 0 08/07/23 06:40 Maple (Worth) IgE <0.10 kU/L 08/07/23 06:40 Maple Tree ASM Class 0 08/07/23 06:40 [place] Tree IgE Ab <0.10 kU/L 08/07/23 06:40 [place] ASM Class 0 08/07/23 06:40 [place] Tree IgE Ab <0.10 kU/L 08/07/23 06:40 [place] ASM Class 0 08/07/23 06:40 [place] Tree Allergen <0.10 kU/L 08/07/23 06:40 [place] Tree ASM Class 0 08/07/23 06:40 [place] Tree IgE Ab <0.10 kU/L 08/07/23 06:40 White [place] ASM Class 0 08/07/23 06:40 [place] ASM Clss 0 08/07/23 06:40 [place] Ag IgE Ad <0.10 kU/L 08/07/23 06:40 [place] IgE Ab <0.10 kU/L 08/07/23 06:40 [place] ASM Class 0 08/07/23 06:40 [place] Grass IgE Ab <0.10 kU/L 08/07/23 06:40 [place] ASM Class 0 08/07/23 06:40 [place] IgE Ab <0.10 kU/L 08/07/23 06:40 [place] ASM Class 0 08/07/23 06:40 Common Ragweed IgE Ab <0.10 kU/L 08/07/23 06:40 Comm Ragweed ASM Class 0 08/07/23 06:40 Mugwort ASM Class 0 08/07/23 06:40 Mugwort Allergen <0.10 kU/L 08/07/23 06:40 Rough Pigweed Allrg IgE <0.10 kU/L 08/07/23 06:40 Rough Pigweed ASM Class 0 08/07/23 06:40 Sheep [place] IgE Ab <0.10 kU/L 08/07/23 06:40 Sheep [place] ASM Class 0 08/07/23 06:40 Cat Dander Allergen <0.10 kU/L 08/07/23 06:40 Cat Dander ASM Class 0 08/07/23 06:40 Dog Dander IgE Allergen <0.10 kU/L 08/07/23 06:40 Dog Dander ASM Class 0 08/07/23 06:40 Mouse Urine IgE Ab <0.10 kU/L 08/07/23 06:40 Mouse Ur Prot ASM Class 0 08/07/23 06:40 Cockroach Allergen IgE <0.10 kU/L 08/07/23 06:40 Cochroach ASM Class 0 08/07/23 06:40 IgE 25 kU/L (<MV=098) 08/07/23 06:40 Adenovirus (PCR) Not Detected (NotDetected) 08/06/23 12:42 B. pertussis DNA (PCR) Not Detected (NotDetected) 08/06/23 12:42 B.parapertussis DNA PCR Not Detected (NotDetected) 08/06/23 12:42 C. pneumoniae DNA (PCR) Not Detected (NotDetected) 08/06/23 12:42 Coronavirus OC43 (PCR) Not Detected (NotDetected) 08/06/23 12:42 Coronavirus HKU1 (PCR) Not Detected (NotDetected) 08/06/23 12:42 Coronavirus 229E (PCR) Not Detected (NotDetected) 08/06/23 12:42 SARS-CoV-2 (PCR) Not Detected (NotDetected) 08/06/23 12:42 Coronavirus NL63 (PCR) Not Detected (NotDetected) 08/06/23 12:42 Human Metapneumovir PCR Not Detected (NotDetected) 08/06/23 12:42 Influenza Type A (PCR) Not Detected (NotDetected) 08/06/23 12:42 Influenza Type B (PCR) Not Detected (NotDetected) 08/06/23 12:42 M. pneumoniae (PCR) Not Detected (NotDetected) 08/06/23 12:42 Parainfluenza 1 (PCR) Not Detected (NotDetected) 08/06/23 12:42 Parainfluenza 2 (PCR) Not Detected (NotDetected) 08/06/23 12:42 Parainfluenza 3 (PCR) Not Detected (NotDetected) 08/06/23 12:42 Parainfluenza 4 (PCR) Not Detected (NotDetected) 08/06/23 12:42 RSV (PCR) Not Detected (NotDetected) 08/06/23 12:42 Entero/Rhino (PCR) DETECTED (NotDetected) A 08/06/23 12:42 SARS-CoV-2, RNA, NAAT NEGATIVE (NEGATIVE) 08/06/23 09:57 Impressions Chest X-Ray 08/06/23 09:45 XR chest 2V PA/lateral HISTORY: Shortness of breath. COMPARISON: Chest 04/12/2022. FINDINGS: The lungs are clear. Cardiac silhouette is normal in size. No pleural effusions. No pneumothorax. IMPRESSION: No acute process. ACT 112: Negative or not required by law. Electronically signed by: Simon Jean-Baptiste M.D. 08/06/2023 11:09 AM Hospital Course (1) Asthma exacerbation: (2) Paroxysmal atrial fibrillation: (3) Hypertension: (4) Obese: Plan Ms. 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 Acute asthma exacerbation Seasonal Allergies Likely secondary to rhinovirus infection --CXR:The lungs are clear. Cardiac silhouette is normal in size. No pleural effusions. No pneumothorax. -- IgE immunoglobulin: 25 -- RAST: Negative Continue nebs, IV Solu-Medrol Added montelukast Continue Incruse while hospitalized Appreciate pulmonology input Will need outpatient polysomnography Needs follow-up with pulmonology on discharge Saturating well on room air Clinically improved Plan to discharge on prednisone taper course Sinus Tachycardia H/O Paroxysmal atrial fibrillation , newly observed in April 13, 2022 ChadsVasc2 score of 2: Decided with Cardiology no AC at this time Continue Diltazem 180mg daily Hypertension Continue losartan, HCTZ, diltiazem Monitor BP Obesity S/P Gastric bypass surgery 2017 BMI 38 Chronic anxiety with panic disorder Continue alprazolam PRN DVT Px: Lovenox SQ CODE STATUS Full code Total Time Total Time Spent Total Time Spent (In Minutes): 58 minutes Discharge Plan Discharge Items Patient Disposition: Home - Self-Care Reason For Visit: ASTHMA EXACERBATION Discharge Diagnosis: Acute asthma exacerbation Rhinovirus infection Activity: Per Instructions section Exercise/Sports: Gradually increase as tolerated Non-emergency contact: Primary Care Provider and Child & Adolescent Psychiatrist Call non-emergency contact if: you have any medication questions, your symptoms worsen, your pain is concerning for you and you have a fever Follow-up/Referrals: Konstantin Scott MD [Primary Care Provider] - (Date & Time 08/14/2023 2:40 PM Provider Lopez Ortez MD Department Family Medicine [facility] ) Diet: Heart Healthy Addtl Attending Provider Instructions: Follow-up with your primary care physician on 08/14/2023 2:40 PM -- Complete prednisone taper course as advised. Prednisone taper course Start taking prednisone 40 mg daily for 2 days, then take 30 mg daily for 2 days, then take 20 mg daily for 2 days, then take 10 mg daily for 2 days and stop. --Get outpatient polysomnography as recommended by your relay shop supervisor Seek immediate medical attention if your symptoms reoccur or worsen Please take all medications as instructed on discharge list below. Please call if you have any questions or problems. You can reach a [facility] hospitalist on duty at [facility] 24 hours a day by calling [phone] Pending Studies at Discharge: No Stand-Alone Forms: My [facility], Work/School Release, Smoking Cessation Medications and DC Order Prescriptions: New guaifenesin [Mucinex] 600 mg Tablet Extended Release 12hr 600 mg PO Q12 3 Days Qty: 6 0RF montelukast 10 mg Tablet 10 mg PO HS Qty: 30 0RF Incruse Ellipta 62.5 mcg/actuation Blister With Device 1 inh inhalation DAILY Qty: 30 0RF prednisone 10 mg tablet 10 mg PO DIRECTED Qty: 20 0RF Rx Instructions: Start taking prednisone 40 mg daily for 2 days, then take 30 mg daily for 2 days, then take 20 mg daily for 2 days, then take 10 mg daily for 2 days and stop. famotidine [Pepcid AC] 10 mg tablet 10 mg PO HS Qty: 10 0RF Continued cyanocobalamin (vitamin B-12) 1,000 mcg/mL solution 1,000 mcg IM .EVERY 3 MONTHS losartan 100 mg tablet 100 mg PO QAM fluticasone propionate 50 mcg/actuation spray,suspension 2 spray INTRANASAL DAILY albuterol sulfate 2.5 mg /3 mL (0.083 %) solution for nebulization 2.5 mg continuous nebulization Q4 PRN (Reason: Wheezing) alprazolam 0.25 mg tablet 0.25 mg PO BID PRN (Reason: Anxiety) hydrochlorothiazide 25 mg tablet 25 mg PO QAM albuterol sulfate 90 mcg/actuation HFA aerosol inhaler 2 puff INHALATION Q4 PRN (Reason: Wheezing) cetirizine [Zyrtec] 10 mg Tablet 10 mg PO DAILY calcium citrate 200 mg (950 mg) Tablet 200 mg PO BID Flintstones Complete Tablet,Chewable 1 tab PO DAILY diltiazem HCl 180 mg Capsule,Extended Release 24hr 180 mg PO QAM Qty: 30 0RF Dulera 200 MCG inhaler 2 puff inhalation BID Discharge Orders: Discharge Order (Routine); Ordered 08/09/23 Ordered By: Chinmay Morrison Admission Data Admit Date/Time: 08/07/23 15:37 Attending Provider: Chinmya Morrison Admit Provider: Cary Cortes Primary Care Provider: Konstantin Scott Other Providers: Dennys Ballard; Low Zamora
== END 2023-08-09 13:58 | disposition home or self-care (01) | DRG 202 ==
LOC: ED 09:29 → EDINP 09:29 → SUATTDRO 12:04 → 2N 14:02